=== PATIENT | female | born 1990 | race Caucasian/White ===

== ENCOUNTER → 2020-01-12 10:31 | Outpatient (CLI) | payer OTHER, SELFPAY ==
[2020-01-12 10:34] VITALS: BMI 34.1
[2020-01-12 11:03] LABS: Absolute Lymphocyte Count 2.38 X10^3/uL (0.83-4.51); Absolute Neutrophil Count 5.1 X10^3/uL (2.0-7.7); Basophil# 0.07 X10^3/uL; Basophil% 0.8 % (0-1); Eosinophil# 0.23 X10^3/uL; Eosinophils% 2.8 % (0-5); Hematocrit 38.6 % (37-47); Lymphocyte # 2.38 X10^3/ul (4.0); Lymphocyte % 28.5 % (19-41); Mean Corp Hgb Conc 33.7 g/dL (32-36); Mean Corpuscular Hgb 30.5 pg (27.0-32.0); Mean Corpuscular Volume 90.6 fL (81-99); Mean Platelet Vol. 11.6 fl (6.2-12.0); NRBC Flagged by Analyzer 0 % (0-5); Neutrophil # 5.14 X10^3/uL (2.7-7.7); Neutrophil % 61.7 % (47-70); Platelet Count 255 K/mm3 (150-450); RBC Distribution Width CV 12.8 % (11.6-14.6); RBC Distribution Width SD 41.7 fl (35.1-43.9); Red Blood Count 4.26 M/mm3 (4.2-5.4); White Blood Count 8.3 K/mm3 (4.4-11.0)
[2020-01-12 11:11] LABS: Glucose Challenge Gest 1H 50g 121 mg/dL (70-140)
[2020-01-12 12:02] LABS: HIV - WCH Non-Reactive (Nonreactive); Hepatitis B Surface Antigen Non-Reactive (Nonreactive); Hepatitis C Antibody Non-Reactive (Nonreactive); Rubella IgG 45.8 IU/mL
[2020-01-12 15:37] LABS: Amphetamine Urine VISTA NEGATIVE (<1000 ng/mL); Barbiturate Urine VISTA NEGATIVE (< 200 ng/mL); Benzodiazepine Urine VISTA NEGATIVE (< 200 ng/mL); Cocaine Urine VISTA NEGATIVE (< 300 ng/mL); Ecstacy Urine VISTA NEGATIVE (< 500 ng/mL); Methadone Urine VISTA NEGATIVE (< 300 ng/mL); PCP Urine VISTA NEGATIVE (< 25 ng/mL); THC Urine VISTA NEGATIVE (< 50 ng/mL); Vista UDS pH Range 6
[2020-01-12 19:24] LABS: Chlamydia Trachomatis by PCR Negative (Negative); Neisserai gonorrhoeae by PCR Negative (Negative); Probe Check PASS; Sample Adequacy Control PASS; Specimen Processing Control PASS
[2020-01-13 01:57] LABS: Rapid Plasmin Reagin (RPR) NONREACTIVE (NONREACTIVE)
== END ==
PROVIDERS: PCP Family Medicine; Referring Provider Obstetrics & Gynecology; Visit Provider Obstetrics & Gynecology
DX: Z34.90 Encounter for supervision of normal pregnancy, unspecified, unspecified trimester (principal)
CPT/HCPCS: 36415; 80307; 82950; 85025; 86592; 86703; 86762; 86803; 86850; 86900; 86901; 87077; 87086; 87088; 87340; 87491; 87591

== ENCOUNTER → 2020-02-08 15:58 | Outpatient (CLI) | payer OTHER, SELFPAY ==
[2020-02-08 08:32] VITALS: BMI 34.1
== END ==
PROVIDERS: PCP Family Medicine; Referring Provider Nurse Practitioner Women's Health; Visit Provider Nurse Practitioner Women's Health
DX: O23.41 Unspecified infection of urinary tract in pregnancy, first trimester (principal); Z3A.00 Weeks of gestation of pregnancy not specified
CPT/HCPCS: 87086; 87088

== ENCOUNTER → 2020-05-05 08:20 | Outpatient (CLI) | payer OTHER, SELFPAY ==
[2020-04-07 08:51] VITALS: BMI 34.1
[2020-05-05 08:46] LABS: Absolute Lymphocyte Count 2.35 X10^3/uL (0.83-4.51); Absolute Neutrophil Count 8.5 X10^3/uL (2.0-7.7); Basophil# 0.07 X10^3/uL; Basophil% 0.6 % (0-1); Eosinophil# 0.48 X10^3/uL; Eosinophils% 3.9 % (0-5); Hematocrit 34.6 % (37-47); Hemoglobin 11.7 g/dL (12.0-15.0); Lymphocyte # 2.35 X10^3/ul (4.0); Lymphocyte % 19.3 % (19-41); Mean Corp Hgb Conc 33.8 g/dL (32-36); Mean Corpuscular Volume 94.5 fL (81-99); Mean Platelet Vol. 11.1 fl (6.2-12.0); Monocyte# 0.69 X10^3/uL; Monocyte% 5.7 % (0-10); NRBC Flagged by Analyzer 0 % (0-5); Neutrophil # 8.53 X10^3/uL (2.7-7.7); Neutrophil % 69.9 % (47-70); Platelet Count 245 K/mm3 (150-450); RBC Distribution Width CV 13.1 % (11.6-14.6); RBC Distribution Width SD 44.8 fl (35.1-43.9); Red Blood Count 3.66 M/mm3 (4.2-5.4); White Blood Count 12.2 K/mm3 (4.4-11.0)
[2020-05-05 08:56] LABS: Glucose Challenge Gest 1H 50g 130 mg/dL (70-140)
== END ==
PROVIDERS: PCP Family Medicine; Referring Provider Obstetrics & Gynecology; Visit Provider Obstetrics & Gynecology
DX: Z34.90 Encounter for supervision of normal pregnancy, unspecified, unspecified trimester (principal)
CPT/HCPCS: 36415; 82950; 85025

== ENCOUNTER → 2020-07-14 10:56 | Outpatient (CLI) | payer OTHER, SELFPAY ==
[2020-07-13 08:20] VITALS: BMI 37.8
== END ==
PROVIDERS: PCP Family Medicine; Referring Provider Obstetrics & Gynecology; Visit Provider Obstetrics & Gynecology
DX: Z34.90 Encounter for supervision of normal pregnancy, unspecified, unspecified trimester (principal)
CPT/HCPCS: 87081

== ENCOUNTER → 2020-07-27 12:21 | Outpatient (CLI) | payer OTHER, SELFPAY ==
[2020-07-27 08:43] VITALS: BMI 37.8
== END ==
PROVIDERS: PCP Family Medicine; Referring Provider Obstetrics & Gynecology; Visit Provider Obstetrics & Gynecology
DX: R30.0 Dysuria (principal)
CPT/HCPCS: 87086; 87088

== ENCOUNTER 2020-08-02 09:40 | Outpatient (CLI) | payer OTHER, SELFPAY ==
[2020-08-02 08:47] VITALS: BMI 38.5
[2020-08-02 09:57] VITALS: BMI 38.5
[2020-08-02 10:01] VITALS: BP 129/77; PULSE 73
[2020-08-02] MEDS: 0.9% Saline Lock 10 ML Syringe IV (10:07)
[2020-08-02 10:12] VITALS: TEMP 36.6
[2020-08-02 10:17] VITALS: BP 130/83; PULSE 71
[2020-08-02 10:32] VITALS: BP 121/82; PULSE 73
[2020-08-02 10:50] LABS: AST(SGOT) 12 U/L (15-37); Alanine Aminotransfer ALT/SGPT 16 U/L (13-56); Creatinine, Serum 0.59 mg/dL (0.55-1.02); EST Glomerular Filtration Rate 129 mL/min (>60); Est Glom Filt Rate - Afr Amer 156 mL/min (>60); Estimated Creatinine Clearance 123.68 ml/min; Uric Acid 5.8 mg/dL (2.6-6.0)
[2020-08-02 11:00] VITALS: BP 125/75; PULSE 68
[2020-08-02 11:01] LABS: Hematocrit 35.9 % (37-47); Hemoglobin 12.2 g/dL (12.0-15.0); Mean Corpuscular Hgb 32.1 pg (27.0-32.0); Mean Corpuscular Volume 94.5 fL (81-99); Mean Platelet Vol. 13.5 fl (6.2-12.0); Platelet Count 168 K/mm3 (150-450); RBC Distribution Width CV 12.6 % (11.6-14.6); RBC Distribution Width SD 43.4 fl (35.1-43.9); White Blood Count 12.4 K/mm3 (4.4-11.0)
[2020-08-02 11:06] LABS: Protein, Urine (Random) 14.1 mg/dL (<11.9); Protein:Creat Ratio 412 mg/g CRE (0-200)
[2020-08-02 11:14] VITALS: BP 131/78; PULSE 73
--- NOTE | 2020-08-02 17:26 | OB.TRI.PN ---
Progress Notes Date of Service: 08/02/20 Progress Note: Patient presents for triage evaluation secondary to elevated blood pressures in the office. Patient asymptomatic. Blood pressure is normal range in triage. Previous labs negative aside from slightly elevated protein to creatinine ratio. FHT: Moderate variability reactive no decelerations category I tracing [place]: No contractions Assessment and plan: Reactive NST, reassuring maternal and status patient discharged to home to follow-up next week. See problem list details for additional plan information. Laboratory Studies: Laboratory Tests 08/02/20 08/02/20 08/02/20 Range/Units 10:45 10:07 10:07 WBC 12.4 H (4.4-11.0) K/mm3 RBC 3.80 L (4.2-5.4) M/mm3 Hgb 12.2 (12.0-15.0) g/dL Hct 35.9 L (37-47) % MCV 94.5 (81-99) fL MCH 32.1 H (27.0-32.0) pg MCHC 34.0 (32-36) g/dL RDW Std Deviation 43.4 (35.1-43.9) fl RDW Coeff of Eveline 12.6 (11.6-14.6) % Plt Count 168 (150-450) K/mm3 MPV 13.5 H (6.2-12.0) fl Creatinine 0.59 (0.55-1.02) mg/dL Estim Creat Clear Calc 123.68 ml/min Est GFR (MDRD) Af Amer 156 (>60) mL/min Est GFR (MDRD) Non-Af 129 (>60) mL/min Uric Acid 5.8 (2.6-6.0) mg/dL AST 12 L (15-37) U/L ALT 16 (13-56) U/L U Random Total Protein 14.1 H (<11.9) mg/dL Urine Creatinine 34.20 (NO RANGE EST.) mg/dL Protein/Creatinin Ratio 412 H (0-200) mg/g CRE Multi Select Codes - Urinary/Genital Urinary/Genital CPT Codes: 45997-96 non-stress test Interp
== END 2020-08-02 11:35 | disposition home or self-care (01) ==
LOC: WPOUT 09:51 → WP 09:51
PROVIDERS: PCP Family Medicine; Referring Provider Obstetrics & Gynecology; Visit Provider Obstetrics & Gynecology
DX: O26.899 Other specified pregnancy related conditions, unspecified trimester (principal); Z3A.00 Weeks of gestation of pregnancy not specified
CPT/HCPCS: 36415; 59025; 59050; 82565; 82570; 84156; 84450; 84460; 84550; 85027; 99218; A4216; G0378

== ENCOUNTER → 2020-08-08 10:29 | Outpatient (CLI) | payer OTHER, SELFPAY ==
[2020-08-02 08:47] VITALS: BMI 38.5
[2020-08-02 09:57] VITALS: BMI 38.5
== END ==
PROVIDERS: PCP Family Medicine; Referring Provider Obstetrics & Gynecology; Visit Provider Obstetrics & Gynecology
DX: Z11.59 Encounter for screening for other viral diseases (principal)
CPT/HCPCS: 87635; C9803; U0005; U0003

== ENCOUNTER → 2020-08-10 10:54 | Outpatient (CLI) | payer OTHER, SELFPAY ==
[2020-08-10 10:36] VITALS: BMI 36.6
[2020-08-10 11:13] LABS: Protein, Urine (Random) 148.2 mg/dL (<11.9); Protein:Creat Ratio 805 mg/g CRE (0-200)
== END ==
PROVIDERS: PCP Family Medicine; Visit Provider Obstetrics & Gynecology
DX: O12.10 Gestational proteinuria, unspecified trimester (principal); Z3A.00 Weeks of gestation of pregnancy not specified
CPT/HCPCS: 82570; 84156

== ENCOUNTER 2020-08-10 14:00 | Outpatient (CLI) | payer OTHER, SELFPAY ==
[2020-08-10] VITALS (9 sets, daily range): BP systolic 130–149; BP diastolic 70–93; PULSE 65–82; TEMP 37; BMI 36.6; BMI 38.1
--- NOTE | 2020-08-10 14:16 | US_ITS ---
STUDY: SECOND AND THIRD TRIMESTER OBSTETRICAL ULTRASOUND - LIMITED REASON FOR EXAM: Female, 29 years old 40 WEEK GROWTH LMP: 11/04/2019. PRIOR ULTRASOUND: None. TECHNIQUE: Transabdominal TECHNICAL QUALITY: Adequate. FINDINGS: There is a single intrauterine fetus. The fetus is in a breech presentation. There is demonstrated cardiac activity with a heart rate of 152 bpm. There is a normal amniotic fluid volume. The largest amniotic fluid pocket measures 4 cm. The amniotic fluid index (MARAIMA) is 9.6 cm. The placenta is posterior in location and is not low lying. There are Grade 3 placental changes. The cervix is not well visualized. BIOMETRY: BPD: 9.22 cm: 37 weeks, 3 days AC: 32.6 cm: 36 weeks, 3 days FL: 7.4 cm: 36 weeks, 6 days Age by LMP: 40 weeks, 8 days. BANG by LMP: 08/10/2020. age by current US: 37 weeks, 1 days. BANG by current US: 08/30/2020. Estimated weight: 3142 grams, +/- 471 grams, 16 percentile. US/OB Limited With Biometrics IMPRESSION: Single live intrauterine gestation with mean gestational age of 37 weeks and 1 day. Electronically Signed: Parveen Rey, at 15:38 EST , Service support ,
[2020-08-10 14:45] LABS: Hematocrit 36.3 % (37-47); Hemoglobin 12.3 g/dL (12.0-15.0); Mean Corp Hgb Conc 33.9 g/dL (32-36); Mean Corpuscular Hgb 32.3 pg (27.0-32.0); Mean Corpuscular Volume 95.3 fL (81-99); Mean Platelet Vol. 12.6 fl (6.2-12.0); Platelet Count 169 K/mm3 (150-450); RBC Distribution Width CV 12.9 % (11.6-14.6); RBC Distribution Width SD 44.4 fl (35.1-43.9); Red Blood Count 3.81 M/mm3 (4.2-5.4)
[2020-08-10 14:55] LABS: International Normalized Ratio 0.9; Partial Thromboplast Time 24.9 Seconds (24.1-36.2); Prothrombin Time (Protime)PT. 11.9 SECONDS (11.7-14.9)
[2020-08-10 15:14] LABS: AST(SGOT) 13 U/L (15-37); Alanine Aminotransfer ALT/SGPT 14 U/L (13-56); Creatinine, Serum 0.79 mg/dL (0.55-1.02); EST Glomerular Filtration Rate 93 mL/min (>60); Est Glom Filt Rate - Afr Amer 112 mL/min (>60); Estimated Creatinine Clearance 92.37 ml/min; Uric Acid 6.5 mg/dL (2.6-6.0)
[2020-08-11 00:07] VITALS: PULSE 54; O2SAT 82
[2020-08-11 00:12] VITALS: BP 142/92; PULSE 63; TEMP 36.4; O2SAT 98
--- NOTE | 2020-08-11 01:07 | OB.TRI.PN_ITS ---
Progress Notes Date of Service: 08/10/20 Progress Note: Patient presents for triage evaluation secondary to proteinuria FHT: 140 Moderate variability reactive no decelerations category I tracing [place]: irregular Contractions Assessment and plan: proeinuria breech Reactive NST, reassuring maternal and status patient discharged to home to follow-up for cs tomorrow, labs WNL. See problem list details for additional plan information. Laboratory Studies: Laboratory Tests 08/10/20 08/10/20 08/10/20 Range/Units 14:35 14:35 14:35 WBC 14.0 H (4.4-11.0) K/mm3 RBC 3.81 L (4.2-5.4) M/mm3 Hgb 12.3 (12.0-15.0) g/dL Hct 36.3 L (37-47) % MCV 95.3 (81-99) fL MCH 32.3 H (27.0-32.0) pg MCHC 33.9 (32-36) g/dL RDW Std Deviation 44.4 H (35.1-43.9) fl RDW Coeff of Eveline 12.9 (11.6-14.6) % Plt Count 169 (150-450) K/mm3 MPV 12.6 H (6.2-12.0) fl PT 11.9 (11.7-14.9) SECONDS INR 0.9 APTT 24.9 (24.1-36.2) Seconds Creatinine 0.79 (0.55-1.02) mg/dL Estim Creat Clear Calc 92.37 ml/min Est GFR (MDRD) Af Amer 112 (>60) mL/min Est GFR (MDRD) Non-Af 93 (>60) mL/min Uric Acid 6.5 H (2.6-6.0) mg/dL AST 13 L (15-37) U/L ALT 14 (13-56) U/L Multi Select Codes - Urinary/Genital Urinary/Genital CPT Codes: 67839-87 non-stress test Interp
== END 2020-08-10 17:15 | disposition home or self-care (01) ==
LOC: WPOUT 14:09 → WP 14:10
PROVIDERS: PCP Family Medicine; Referring Provider Obstetrics & Gynecology; Visit Provider Obstetrics & Gynecology
DX: O12.13 Gestational proteinuria, third trimester (principal); Z3A.37 37 weeks gestation of pregnancy
CPT/HCPCS: 36415; 59025; 59050; 76816; 82565; 84450; 84460; 84550; 85027; 85610; 85730; 99218; G0378

== ENCOUNTER 2020-08-11 | Inpatient (IN) | payer OTHER, SELFPAY ==
[2020-08-10 14:11] VITALS: BMI 38.1
[2020-08-11] VITALS (17 sets, daily range): BP systolic 110–142; BP diastolic 60–92; PULSE 60–90; RESP 12–21; TEMP 36.1–36.8; O2SAT 95–99; BMI 37.8
[2020-08-11] MEDS: Lactated Ringers 1,000 ML 999 ML IV (00:30)
[2020-08-11 00:51] LABS: Absolute Lymphocyte Count 2.61 X10^3/uL (0.83-4.51); Absolute Neutrophil Count 12.4 X10^3/uL (2.0-7.7); Basophil# 0.08 X10^3/uL; Basophil% 0.5 % (0-1); Eosinophil# 0.16 X10^3/uL; Hematocrit 36.9 % (37-47); Hemoglobin 12.3 g/dL (12.0-15.0); Lymphocyte # 2.61 X10^3/ul (4.0); Mean Corp Hgb Conc 33.3 g/dL (32-36); Mean Corpuscular Hgb 31.2 pg (27.0-32.0); Mean Corpuscular Volume 93.7 fL (81-99); Mean Platelet Vol. 12.8 fl (6.2-12.0); Monocyte# 0.93 X10^3/uL; Monocyte% 5.7 % (0-10); NRBC Flagged by Analyzer 0 % (0-5); Neutrophil # 12.38 X10^3/uL (2.7-7.7); Neutrophil % 75.9 % (47-70); Platelet Count 181 K/mm3 (150-450); RBC Distribution Width CV 12.8 % (11.6-14.6); RBC Distribution Width SD 43.7 fl (35.1-43.9); Red Blood Count 3.94 M/mm3 (4.2-5.4); White Blood Count 16.3 K/mm3 (4.4-11.0)
[2020-08-11] MEDS: Acetaminophen 500 MG Tablet 1000 MG PO ×4 (01:00→18:52)
[2020-08-11] MEDS: Sodium Citrate/Citric Acid 30 ML UDC PO (01:02)
--- NOTE | 2020-08-11 01:09 | PCM.HPOB.BLA ---
- Problem List (1) Active labor at term Status: Acute (2) 39 weeks gestation of Status: Acute Comment: covid test ordered 08/08/2020 negative (3) Asthma affecting , antepartum Status: Acute Comment: Ken Moran Zyrtec (4) Influenza vaccine administered Status: Acute Comment: 04/07/2020 SC (5) Obesity affecting Status: Acute Comment: BMI 34- nl gct at [facility], encouraged healthy weight gain (6) Status: Acute Qualifiers: Comment: declines genetic, carrier and NTD. Anatomy normal (7) Supervision of high risk , antepartum Status: Acute Comment: PRR BANG 08/10/2020 boy:Onur Spouse: Anthony (8) Transient hypertension of in third trimester Status: Acute Comment: Multiple BPs with diastolics in 90s 08/02. Asymptomatic. Sent to triage for labs and BP monitoring. (9) UTI (urinary tract infection) in in first trimester Status: Acute Comment: 01/16:macrobid. Repeat culture neg (10) Breech presentation Status: Acute History and Physical Date of Admission: 08/11/20 Intake Vital Signs 08/10/20 Height 5 ft 5 in 08/10/20 Weight: 220 lb 08/10/20 BMI 36.6 08/10/20 BP 122/88 H Intake Visit Reasons: 40 WK OB /HAPPY DUE DATE! 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 Is patient in pain?: No Allergies cat dander Allergy (Intermediate, Verified 08/10/20 10:36) Hives cigarette smoke Allergy (Intermediate, Verified 08/10/20 10:36) Other dog dander Allergy (Intermediate, Verified 08/10/20 10:36) Hives perfume Allergy (Intermediate, Verified 08/10/20 10:36) Other aspirin [From [employer]] Allergy (Verified 08/10/20 10:36) Other caffeine [From [employer]] Allergy (Verified 08/10/20 10:36) Other seasonal Allergy (Intermediate, Uncoded 08/10/20 10:36) hives cold Adverse Reaction (Intermediate, Uncoded 08/10/20 10:36) Hives Medications albuterol sulfate 90 mcg/actuation aerosol inhaler 2 puff INHALATION Q6H PRN 01/12/20 [History Confirmed 08/10/20] fluticasone 500 mcg-salmeterol 50 mcg/dose blistr powdr for inhalation 1 inh INHALATION BID 01/12/20 [History Confirmed 08/10/20] multivitamin no.47-iron fum 27 mg-folate no.1 1 mg-dha 300 mg capsule 1 cap PO 01/12/20 [History Confirmed 08/10/20] cyclobenzaprine 10 mg tablet 10 mg PO TID PRN #30 tab 07/27/20 [Rx Confirmed 08/10/20] promethazine 12.5 mg tablet 12.5 mg PO Q6H PRN #120 tab 07/27/20 [Rx Confirmed 08/10/20] Last Menstral Period: 11/04/19 Zika: Zika virus screening: Negative : No PFSH PFSH Medical History Obesity affecting (Acute) Asthma affecting , antepartum (Acute) Surgical History No significant past surgical history (Acute) Family History Grandmother Breast cancer Grandfather Cancer Mother Diabetes Father Diabetes Social History (Updated 08/10/20 @ 11:[address] Faina Guzman MD) adopted: No household members: spouse housing: house current occupational status: employed current occupation: [employer] pets and animals: Yes history of recent travel: No sexually active: Yes Smoking Status: Never smoker second hand exposure: No alcohol intake: current alcohol intake frequency: holidays/special occasions only substance use type: does not use seatbelt use: always do you feel safe at home: Yes additional social history: Anthony blankenship Pregancy History 1 Elective abortions Hx Para Spontaneous abortions Hx # Term Pregnancies Ectopic pregnancies Hx # Pregnancies Multiple births # of living children HPI 40 WK OB /HAPPY DUE DATE!: Details: SUE HEAD is a 29 year old @ 40w1d presents IAL breech. OB Visit BANG Calculator Estimated Delivery Date Method Current WG Current Estimate 08/10/20 LMP (Certain) 40w 0d Other Estimates 08/11/20 Ultrasound #1 39w 6d Expected Delivery Route/Plan Labor Preferences- CB/BF classes: done labor support person: anthnoy labor intervention preferences: nonspecific pain management options preferred: epidural cut cord/dad catch: possible : yes PP control planned: discussed possible routes of delivery and associated risks: discussed possible delivery modalities and possible indications for each including R/B/A of , VAVD, FAVD, and CS. questions answered. special requests: none Specific Issue/Plans flu vaccine: given 04/07 tdap vaccine: given 05/05 rhogam: NA LARC form signed:declined movement and labor precautions reviewed. Problem list reviewed and updated with the most current plan of care details and appropriate orders placed. Relevant counseling for the gestational age provided. Continue routine care and follow up unless otherwise noted in visit notes/problem list details Initial Weight: 199 lb Date EGA Weight BP Urine Prot Glucose FHR FuHt Pres Dilation Effaced St Visit Note 02/08/20 13w 5d 198 lb (-16 oz) 114/80 Negative Negative 158 MH-NO VB, LOF. Nausea minimal. MFM US ordered. 03/10/20 18w 1d 197 lb (-2 lb) 130/80 Negative Negative 155 SM- no vb lof good fm no regular ctx 04/07/20 22w 1d 201 lb (+2 lb) 122/88 Negative Negative 150 SM- no vb lof good fm no regular ctx. 05/05/20 26w 1d 205 lb (+6 lb) 110/80 150 Sm- no vb lof good fm no regular ctx cbc WNL and no diabetes 06/01/20 30w 0d 210 lb (+11 lb) 128/82 Negative Negative 140 30 SM- no vb lof good fm no regular ctx discussed labor preferences. 06/15/20 32w 0d 214 lb (+15 lb) 118/88 Negative Negative 150 32 GP - no LOF, VB, DFM, ctx. Denies complaints. 06/26/20 33w 4d 216 lb (+17 lb) 112/88 Negative Negative 150 34 SM- no vb lof good fm no egular ctx 07/13/20 36w 0d 220 lb (+21 lb) 122/82 Negative Negative 150 36 SM- gbs done no vb lof good fm no regular ctx 07/21/20 37w 1d 223 lb (+24 lb) 122/88 Negative Negative 150 37 Cephalic 0 40 -2 GP - no LOF, VB, DFM, reg ctx. Discussed COVID testing and COVID precautions. Would like to work as long as possible. 07/27/20 38w 0d 220 lb (+21 lb) 119/86 Negative 155 38 Cephalic 0 Sm- no vb lof good fm irregular ctx. low back pain, vomiting, no cough or fever. Sm- no vb lof good fm irregular ctx. low back pain, vomiting, no cough or fever. ua and culture done, ordered keflex phenergan and flexeril 08/02/20 38w 6d 224 lb 4 oz (+25 lb 4 oz) 122/94 Negative Negative 150 39 Cephalic 0 40 -2 GP - no LOF, VB, DFM, ctx. COVID testing scheduled. BPs mild range - sent to triage for eval. Discussed routes of delivery. 08/10/20 40w 0d 220 lb (+21 lb) 122/88 3+ Negative 160 40 breech on US 1 70 -2 SM- no vb lof good fm no reular ctx. discussed IOL 41 weeks, check ur protein/cr ratio, reviewed preeclampsia precautions ACOG First Trimester First Trimester: Desire for , Alcohol, Tobacco Cessation, Illicit/Recreational Drug/Substance Use, Intimate Partner Violence, Barriers to care, Unstable Housing, Communication Barriers, Environmental/Work Hazards, Anticipated Course of Care, Toxoplasmosis Precations, Use of Any medications, Sexual activity, Exercise, Dental Care, Sauna/Hot tub use, Seat Belt use, Childbirth classes/Hospital facilities, , Travel, Indications for US and Screening for Aneuploidy Diagnostics Diagnostics Diagnostics Glucose 1 Hr 50 gm 130 mg/dL (70-140) 05/05/20 Hgb 12.2 g/dL (12.0-15.0) 08/02/20 Hct 35.9 % (37-47) L 08/02/20 Details: HIV: Urine Culture: Sequential Screen: NIPT Screen: ROS Const Reports system reviewed and no additional complaints, except as docu Card Reports system reviewed and no additional complaints, except as docu Resp Reports system reviewed and no additional complaints, except as docu GI Reports system reviewed and no additional complaints, except as docu, Reports nausea Reports system reviewed and no additional complaints, except as docu Musc Reports system reviewed and no additional complaints, except as docu Exam Const General: cooperative, healthy appearing, comfortable, anxious [facility] Head: normal to inspection Nose: external nose normal Face and sinus: normal facial exam Neck Neck: normal visual inspection, full ROM, no lymphadenopathy Thyroid: thyroid normal Chest Chest palpation & inspection: normal inspection of the chest Resp Effort & Inspection: normal respiratory effort GI Inspection: normal to inspection Palpation: soft, other (gravid uterus) Other: breech on US and appropriate size for gestational age Other: Cervical Exam: Extrem General: pedal edema Results POC Urinalysis 2 Dip (Clinic) Office Urine Glucose Negative Last Edit by Sheri Bourne on 08/10/20 10:42 Office Urine Protein 3+ Last Edit by Sheri Bourne on 08/10/20 10:42 Assessment & Plan Problems 1. Asthma affecting , antepartum O99.519; J45.909 Advair, ProAir, Zyrtec 2. Obesity affecting O99.210 BMI 34- nl gct at [facility], encouraged healthy weight gain 3. Supervision of high risk , antepartum O09.90 PRR BANG 08/10/2020 boy:Onur Spouse: Anthony 4. Z34.90 declines genetic, carrier and NTD. Anatomy normal 5. UTI (urinary tract infection) in in first trimester O23.41 615:macrobid. Repeat culture neg 6. Influenza vaccine administered Z23 04/07/2020 SC 7. Transient hypertension of in third trimester O13.3 Multiple BPs with diastolics in 90s 30. Asymptomatic. Sent to triage for labs and BP monitoring. 8. 39 weeks gestation of Z3A.39 covid test ordered 08/08/2020 negative plan LTCS for breech presentation IAL After discussing the patient's diagnosis and treatment plan options, patient wishes to proceed with surgical management. I have discussed with the patient the risks, benefits, and alternatives of the procedure which include but are not limited to risks of anesthesia, bleeding, infection, possible damage to bowel, bladder, or surrounding vasculature which could lead to additional surgery to evaluate any complications. Patient agrees to procedure and wishes to proceed. ACOG/uptodate references given for additional information regarding procedure. Orders Orders: POC Urinalysis 2 Dip (Clinic) Today Protein+Creatinine Ratio,Urine Today O12.10 Coding Level of Care Code OB Routine Diagnoses Asthma affecting , antepartum O99.519; J45.909 Obesity affecting O99.210 Supervision of high risk , antepartum O09.90 Z34.90 UTI (urinary tract infection) in in first trimester O23.41 Influenza vaccine administered Z23 Transient hypertension of in third trimester O13.3 39 weeks gestation of Z3A.39
[2020-08-11] MEDS: Cefazolin 2 GM in 0.9% Normal Saline 100 ML IV (01:13)
--- NOTE | 2020-08-11 01:14 | OP.PCM_ITS ---
Problem List (1) Active labor at term Status: Acute (2) 39 weeks gestation of Status: Acute Comment: covid test ordered 08/08/2020 negative (3) Asthma affecting , antepartum Status: Acute Comment: Advair, ProAir, Beccayrtec (4) Influenza vaccine administered Status: Acute Comment: 04/07/2020 SC (5) Obesity affecting Status: Acute Comment: BMI 34- nl gct at [facility], encouraged healthy weight gain (6) Status: Acute Qualifiers: Comment: declines genetic, carrier and NTD. Anatomy normal (7) Supervision of high risk , antepartum Status: Acute Comment: PRR BANG 08/10/2020 boy:Onur Spouse: Anthony (8) Transient hypertension of in third trimester Status: Acute Comment: Multiple BPs with diastolics in 90s 08/02. Asymptomatic. Sent to triage for labs and BP monitoring. (9) UTI (urinary tract infection) in in first trimester Status: Acute Comment: 01/16:macrobid. 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 Cheung catheter was placed. The patient was placed in the dorsal supine position with leftward tilt. Patient was prepped and draped in the normal sterile fashion. Pfannenstiel skin incision was made with the scalpel and carried through to the underlying layer of fascia with the scalpel. Fascia was nicked in the midline and the incision extended laterally. The rectus bellies were dissected off superiorly and i nferiorly with out complication both sharply and bluntly. The peritoneum was entered digitally. The incision was stretched and a low transverse uterine incision was made with the scalpel. The 's buttox was delivered atraumatically followed by the body and the anterior and posterior shoulders without complication the rest of the infant delivered. The cord was clamped and cut and the infant was handed off to awaiting nurse. The placenta was delivered spontaneously immediately following and was noted to be intact and have a three- vessel cord. The uterus was exteriorized cleared of all clots and debris, and the incision was closed in a double layer closure using #1 Monocryl. The ovaries and fallopian tubes were noted to be within normal limits. The uterus was returned to the maternal abdomen and gutters were cleared of all clots and debris. The peritoneum was closed with 3-0 Monocryl in a running fashion. Gloves were changed prior to fascial closure. Fascia was closed with 0 PDS in a running fashion. Subcutaneous tissue was copiously irrigated and the skin was closed with 3-0 Monocryl in a subcuticular fashion. Mepilex dressing was applied without complication. Patient was taken to recovery in stable condition. It was discussed with the patient that based on the clinical information obtained during this encounter, combined with her history, at this time I would recommend vaginal or cesareans for future deliveries if further pregnancies are desired. Amniotic Membrane Rupture Type: Artificial Amniotic Fluid Description: Clear Placenta Disposition: [facility] Drain: Cheung to straight drain Esitmated Blood Loss (ml): 400 Gender: Male Delayed cord clamping: Yes Antibiotic Given: Ancef 2 grams IV x1 Pt instructed on risks of surgery: Bleeding, Anesthesia Risks, Infection, Injury to surrounding structure(s) including bowel and bladder Complications: None - Admit VTE Documentation VTE Present on Admission: No VTE Mechan Device Prophylaxis: SCD's Multi Select Codes - Urinary/Genital Urinary/Genital CPT Codes: 54849 Delivery [facility]
--- NOTE | 2020-08-11 01:17 | DCINST_ITS ---
Discharge Diet: No Restrictions Discharge Activity: May Not Drive - for 2 weeks, May not drive while taking narcotic pain medications., May Shower, May Take a Tub Bath - in 7 days May resume sexual activity in: 4-6 weeks Lifting Restrictions: 20 pounds Additional Activity Instructions:: Nothing in the vagina for 4-6 weeks. You may return to work/school in 6 weeks. Call your doctor if your incision/area has: Continuous Slow Oozing, Sudden Increased Bleeding, Increased Pain/ Swelling, Increased Redness, Foul Smelling Discharge Call your doctor if you observe: Fever of 101 or Higher, Using more than one pad per hour - for 2 hours Suture Line Care: Avoid Pulling/Pushing, Avoid Pinching/Bending Cleanse incision/area with: Keep Dressing Clean & Dry Additional Instructions: If you experience any of the following, contact your healthcare provider. * Bleeding that soaks a pad every hour for 2 hours * Fever 100.4 or higher * Unrelieved incision or abdominal pain * Swelling, redness, discharge or bleeding from your incision or episiotomy site * Your incision begins to separate * Problems urinating (including inability to urinate or burning while urinating). * Visual changes * Severe headache * Flu-like symptoms * Pain or redness in one of both of your breasts * Pain, warmth, tenderness or swelling in your legs, especially the calf area * Frequent nausea and vomiting * Symptoms of depression or anxiety If you experience any of the following, call 911 or go to the nearest Emergency Room. * Chest pain * Problems breathing * Seizure activity * Partial or complete paralysis of a body part, slurred speech, weakness or drooping of the face, or a sudden inability to walk or hold your balance Allergies/Adverse Reactions: Allergies cat dander Allergy (Intermediate, Verified 08/10/20 10:36) Hives cigarette smoke Allergy (Intermediate, Verified 08/10/20 10:36) Other SOB dog dander Allergy (Intermediate, Verified 08/10/20 10:36) Hives perfume Allergy (Intermediate, Verified 08/10/20 10:36) Other SOB aspirin [From [employer]] Allergy (Verified 08/10/20 10:36) Other SOB, swelling, hives caffeine [From [employer]] Allergy (Verified 08/10/20 10:36) Other SOB, swelling, hives seasonal Allergy (Intermediate, Uncoded 08/10/20 10:36) hives cold Adverse Reaction (Intermediate, Uncoded 08/10/20 10:36) Hives cold induced urticaria Medications to take at Discharge albuterol sulfate 90 mcg/actuation aerosol inhaler 2 puff INHALATION Q6H PRN 01/12/20 multivitamin no.47-iron fum 27 mg-folate no.1 1 mg-dha 300 mg capsule 1 cap PO DAILY 01/12/20 cyclobenzaprine 10 mg tablet 10 mg PO TID PRN #30 tab 07/27/20 promethazine 12.5 mg tablet 12.5 mg PO Q6H PRN #120 tab 07/27/20 Blood Pressure Test Kit [Blood Pressure Monitor Manual] See Rx Instructions .ROUTE .MEDSUPPLY 08/11/20 Oxycodone HCl/Acetaminophen [Percocet 5-325] 1 - 2 tablet PO Q6H PRN PRN 7 Days #15 tablet 08/11/20 The following prescriptions were given: Oxycodone HCl/Acetaminophen [Percocet 5-325] 1 - 2 tablet PO Q6H PRN PRN 7 Days #15 tablet PRN Reason: Pain Transmission Status: Sent to [facility] Follow-Up: Call to make an appointment with your doctor for an incision check in 1-2 weeks. You will also need a 6 week post- follow up appointment. Test results from this visit will be discussed in further detail at your follow- up appointment, if applicable. Please Follow Up With: Faina Guzman MD - Call to make an appointment for an incision check in 1-2 [phone] When: You will need a post- check in 6 weeks. Primary Care Physician: Dave Bellamy MD [Primary Care Provider] -
[2020-08-11] MEDS: Oxytocin 30 units/NS 500 ml 30 UNITS/500 ML IV.SOLN 167 UNITS IV (02:20)
[2020-08-11] MEDS: Lactated Ringers 1,000 ML 100 ML IV (05:15)
[2020-08-11] MEDS: Senna/Docusate Sodium 1 Tablet PO (10:36)
[2020-08-11] MEDS: Enoxaparin 40 MG/0.4 ML Syringe SC (10:37)
[2020-08-11] MEDS: 0.9% Saline Lock 10 ML Syringe IV ×3 (13:03→21:51)
[2020-08-11] MEDS: Ketorolac 30 MG/ML Syringe IV ×2 (15:41→21:51)
[2020-08-12] MEDS: Acetaminophen 500 MG Tablet 1000 MG PO ×4 (01:45→20:03)
[2020-08-12 01:46] VITALS: BP 130/89; PULSE 94; RESP 16; TEMP 36.4
[2020-08-12] MEDS: Naproxen 250 MG Tablet PO ×3 (04:17→20:03)
[2020-08-12 04:18] VITALS: BP 111/60; PULSE 82; RESP 16; TEMP 36.3
[2020-08-12 04:34] LABS: Hematocrit 33.1 % (37-47); Hemoglobin 11.3 g/dL (12.0-15.0); Mean Corp Hgb Conc 34.1 g/dL (32-36); Mean Corpuscular Hgb 32.6 pg (27.0-32.0); Mean Corpuscular Volume 95.4 fL (81-99); Mean Platelet Vol. 12.1 fl (6.2-12.0); Platelet Count 169 K/mm3 (150-450); RBC Distribution Width CV 13.2 % (11.6-14.6); RBC Distribution Width SD 45.5 fl (35.1-43.9); Red Blood Count 3.47 M/mm3 (4.2-5.4); White Blood Count 14.2 K/mm3 (4.4-11.0)
[2020-08-12 07:51] VITALS: BP 121/68; PULSE 80; RESP 16; TEMP 36.7; O2SAT 99
[2020-08-12] MEDS: Senna/Docusate Sodium 1 Tablet PO (09:39)
[2020-08-12] MEDS: Enoxaparin 40 MG/0.4 ML Syringe SC (09:39)
--- NOTE | 2020-08-12 12:36 | PN.OBGYN_ITS ---
Patient Problems: Active and Suspected Problems (Last Updated 08/11/20 @ 10:11 by Tenisha Rodriguez) Influenza vaccine administered (Acute) 04/07/2020 [place] Subjective: Patient doing well without complaints. Tolerating PO. Ambulating and voiding without difficulty. feeding well. Denies chest pain, shortness of breath, calf pain/swelling, fevers, chills, lightheadedness. - Physical Exam Vitals/I&O's: Vital Signs Temp Pulse Resp BP Pulse Ox 98.0 F 80 16 121/68 H 99 08/12/20 07:51 08/12/20 07:51 08/12/20 07:51 08/12/20 07:51 08/12/20 07:51 Oxygen Delivery Method Room Air Weight: 220 lb 0.341 oz Body Mass Index (BMI) 37.8 Intake and Output for Last 24 Hours 08/10/20 08/11/20 08/12/20 23:59 23:59 23:59 Intake Total 2337.75 / 2337.75 Output Total 1400 / 1400 Balance 937.75 / 937.75 General: Alert, Oriented x3 Laboratory Results 08/12/20 04:30: WBC 14.2 H, RBC 3.47 L, Hgb 11.3 L, Hct 33.1 L, MCV 95.4, MCH 32.6 H, MCHC 34.1, RDW Std Deviation 45.5 H, RDW Coeff of Eveline 13.2, Plt Count 169, MPV 12.1 H Current Medications Acetaminophen (Acetaminophen 500 Mg Tablet) 1,000 mg PO Q6H [facility] Last Admin: 08/12/20 07:44 Dose: 1,000 mg Documented by: Bisacodyl (Bisacodyl 10 Mg Suppository) 10 mg RECTAL UD PRN PRN Reason: If no BM Enoxaparin Sodium (Enoxaparin 40 Mg/0.4 Ml Syringe) 40 mg SC DAILY [facility] Last Admin: 08/12/20 09:39 Dose: 40 mg Documented by: Hydrocortisone (Hydrocortisone 2.5% Crm) 1 applic TOPICAL TID PRN PRN; Protocol PRN Reason: Discomfort Naloxone HCl (Naloxone 0.4 Mg/Ml Syringe) 0.02 mg IV Q1M PRN PRN Reason: RR <10 and pt unresponsive Naproxen (Naproxen 250 Mg Tablet) 250 - 500 mg PO Q8H [facility] Last Admin: 08/12/20 12:17 Dose: 500 mg Documented by: Ondansetron HCl (Ondansetron 4 Mg/2 Ml Vial) 4 mg IV Q4H PRN PRN PRN Reason: Nausea Oxycodone HCl (Oxycodone 5 Mg Tablet) 5 - 10 mg PO Q4H PRN PRN PRN Reason: Pain Score 4-10 Prochlorperazine Edisylate (Prochlorperazine 10 Mg/2 Ml Vial) 10 mg IV Q6H PRN PRN PRN Reason: NAUSEA Senna/Docusate Sodium (Senna/Docusate Sodium 1 Tablet) 1 - 2 tablet PO DAILY [facility] Last Admin: 08/12/20 09:39 Dose: 2 tablet Documented by: Simethicone (Simethicone 80 Mg Tablet) 80 mg PO PCHS PRN PRN Reason: Indigestion/stomach pain Sodium Chloride (0.9% Saline Lock 10 Ml Syringe) 5 - 15 ml IV UD PRN PRN Reason: SALINE FLUSH Last Admin: 08/11/20 21:51 Dose: 10 ml Documented by: Medical Necessity - Tobacco Use Smoking Status: Never smoker Assessment/Plan All Active Problems (Last Updated 08/11/20 @ 10:11 by Tenisha Rodriguez) Influenza vaccine administered (Acute) 39 weeks gestation of (Resolved) Active labor at term (Resolved) Asthma affecting , antepartum (Resolved) Breech presentation (Resolved) Obesity affecting (Resolved) (Resolved) Supervision of high risk , antepartum (Resolved) Transient hypertension of in third trimester (Resolved) UTI (urinary tract infection) in in first trimester (Resolved) s/p LTCS PPD # 1 1. routine post care 2. breast feeding- support given 3. rh positive 4. rubella immune
[2020-08-12 13:18] VITALS: BP 119/75; PULSE 80; RESP 18; TEMP 36.6
[2020-08-12 19:55] VITALS: BP 123/79; PULSE 89; RESP 18; TEMP 36.5; O2SAT 96
[2020-08-13] MEDS: Acetaminophen 500 MG Tablet 1000 MG PO ×3 (02:10→14:52)
[2020-08-13] MEDS: Naproxen 250 MG Tablet PO ×2 (04:21→11:46)
[2020-08-13 04:24] VITALS: BP 122/68; PULSE 84; RESP 16; TEMP 37.1; O2SAT 94
[2020-08-13 08:59] VITALS: BP 139/87; PULSE 94; RESP 16; TEMP 36.7; O2SAT 99
[2020-08-13] MEDS: Senna/Docusate Sodium 1 Tablet PO (09:05)
[2020-08-13] MEDS: Enoxaparin 40 MG/0.4 ML Syringe SC (09:05)
--- NOTE | 2020-08-13 09:26 | PN.OBGYN_ITS ---
Patient Problems: Active and Suspected Problems (Last Updated 08/11/20 @ 10:11 by Tenisha Rodriguez) Influenza vaccine administered (Acute) 04/07/2020 [place] Subjective: Patient doing well without complaints. Tolerating PO. Ambulating and voiding without difficulty. feeding well. Denies chest pain, shortness of breath, calf pain/swelling, fevers, chills, lightheadedness. - Physical Exam Vitals/I&O's: Vital Signs Temp Pulse Resp BP Pulse Ox 98.1 F 94 16 139/87 H 99 08/13/20 08:59 08/13/20 08:59 08/13/20 08:59 08/13/20 08:59 08/13/20 08:59 Oxygen Delivery Method Room Air Weight: 220 lb 0.341 oz Body Mass Index (BMI) 37.8 Intake and Output for Last 24 Hours 08/11/20 08/12/20 08/13/20 23:59 23:59 23:59 Intake Total 2337.75 / 2337.75 Output Total 1400 / 1400 Balance 937.75 / 937.75 General: Alert, Oriented x3 Current Medications Acetaminophen (Acetaminophen 500 Mg Tablet) 1,000 mg PO Q6H [facility] Last Admin: 08/13/20 09:05 Dose: 1,000 mg Documented by: Bisacodyl (Bisacodyl 10 Mg Suppository) 10 mg RECTAL UD PRN PRN Reason: If no BM Enoxaparin Sodium (Enoxaparin 40 Mg/0.4 Ml Syringe) 40 mg SC DAILY [facility] Last Admin: 08/13/20 09:05 Dose: 40 mg Documented by: Hydrocortisone (Hydrocortisone 2.5% Crm) 1 applic TOPICAL TID PRN PRN; Protocol PRN Reason: Discomfort Naloxone HCl (Naloxone 0.4 Mg/Ml Syringe) 0.02 mg IV Q1M PRN PRN Reason: RR <10 and pt unresponsive Naproxen (Naproxen 250 Mg Tablet) 250 - 500 mg PO Q8H [facility] Last Admin: 08/13/20 04:21 Dose: 500 mg Documented by: Ondansetron HCl (Ondansetron 4 Mg/2 Ml Vial) 4 mg IV Q4H PRN PRN PRN Reason: Nausea Oxycodone HCl (Oxycodone 5 Mg Tablet) 5 - 10 mg PO Q4H PRN PRN PRN Reason: Pain Score 4-10 Prochlorperazine Edisylate (Prochlorperazine 10 Mg/2 Ml Vial) 10 mg IV Q6H PRN PRN PRN Reason: NAUSEA Senna/Docusate Sodium (Senna/Docusate Sodium 1 Tablet) 1 - 2 tablet PO DAILY [facility] Last Admin: 08/13/20 09:05 Dose: 2 tablet Documented by: Simethicone (Simethicone 80 Mg Tablet) 80 mg PO PCHS PRN PRN Reason: Indigestion/stomach pain Sodium Chloride (0.9% Saline Lock 10 Ml Syringe) 5 - 15 ml IV UD PRN PRN Reason: SALINE FLUSH Last Admin: 08/11/20 21:51 Dose: 10 ml Documented by: Medical Necessity - Tobacco Use Smoking Status: Never smoker Assessment/Plan All Active Problems (Last Updated 08/11/20 @ 10:11 by Tenisha Rodriguez) Influenza vaccine administered (Acute) 39 weeks gestation of (Resolved) Active labor at term (Resolved) Asthma affecting , antepartum (Resolved) Breech presentation (Resolved) Obesity affecting (Resolved) (Resolved) Supervision of high risk , antepartum (Resolved) Transient hypertension of in third trimester (Resolved) UTI (urinary tract infection) in in first trimester (Resolved) s/p LTCS PPD # 2 1. routine post care 2. breast feeding- support given 3. rh positive 4. rubella immune
[2020-08-13 15:29] VITALS: BP 143/85; PULSE 90; RESP 16; TEMP 36.9; O2SAT 98
== END 2020-08-13 16:00 | disposition home or self-care (01) | DRG 788 ==
PROVIDERS: Obstetrics & Gynecology; Admitting Provider Obstetrics & Gynecology; PCP Family Medicine; Visit Provider Obstetrics & Gynecology
PROC: 10D00Z1 Extraction of Products of Conception, Low, Open Approach (ICD-10-PCS; CPT 59514; principal; 2020-08-11 07:15)
DX: O32.1XX0 Maternal care for breech presentation, not applicable or unspecified (principal); Z3A.40 40 weeks gestation of pregnancy; Z37.0 Single live birth; O99.214 Obesity complicating childbirth; J45.909 Unspecified asthma, uncomplicated; O99.52 Diseases of the respiratory system complicating childbirth
CPT/HCPCS: 59025; 59050; 76815; 85025; 85027; 86850; 86900; 86901; 99218; 99251; J7120; A4216; G0378; G0463; J2405

== ENCOUNTER → 2020-09-21 17:53 | Outpatient (CLI) | payer OTHER, SELFPAY ==
[2020-09-21 14:14] VITALS: BMI 35.0
[2020-09-25 18:02] LABS: HPV Reflexed? NOT INDICATED
== END ==
PROVIDERS: PCP Family Medicine; Referring Provider Obstetrics & Gynecology; Visit Provider Obstetrics & Gynecology
DX: Z12.4 Encounter for screening for malignant neoplasm of cervix (principal)
CPT/HCPCS: 88175; G0145

== ENCOUNTER → 2020-12-07 11:24 | Outpatient (CLI) | payer OTHER, SELFPAY ==
[2020-09-21 14:14] VITALS: BMI 35.0
[2020-12-07 15:24] LABS: Absolute Lymphocyte Count 1.27 X10^3/uL (0.83-4.51); Absolute Neutrophil Count 4.2 X10^3/uL (2.0-7.7); Basophil# 0.05 X10^3/uL; Basophil% 0.8 % (0-1); Eosinophil# 0.11 X10^3/uL; Eosinophils% 1.8 % (0-5); Hematocrit 39.9 % (37-47); Hemoglobin 12.9 g/dL (12.0-15.0); Lymphocyte # 1.27 X10^3/ul (0.83-4.51); Lymphocyte % 20.7 % (19-41); Mean Corp Hgb Conc 32.3 g/dL (32-36); Mean Corpuscular Hgb 30.1 pg (27.0-32.0); Mean Platelet Vol. 11.9 fl (6.2-12.0); Monocyte# 0.51 X10^3/uL; Monocyte% 8.3 % (0-10); NRBC Flagged by Analyzer 0 % (0-5); Neutrophil % 68.2 % (47-70); Platelet Count 286 K/mm3 (150-450); RBC Distribution Width SD 41.2 fl (35.1-43.9); Red Blood Count 4.29 M/mm3 (4.2-5.4); White Blood Count 6.2 K/mm3 (4.4-11.0)
[2020-12-07 15:36] LABS: ALB/GLOB Ratio 0.9 RATIO (0.9-2.4); AST(SGOT) 740 U/L (15-37); Alanine Aminotransfer ALT/SGPT 674 U/L (13-56); Albumin, Serum 3.7 g/dL (3.2-5.0); Alkaline Phosphatase 143 U/L (45-117); Anion Gap 7 (5-15); BUN 14 mg/dL (7-18); BUN/Creat Ratio 19.6 RATIO (10-20); Calcium,Total 9.1 mg/dL (8.5-10.1); Chloride 107 mmol/L (98-107); Creatinine, Serum 0.71 mg/dL (0.55-1.02); EST Glomerular Filtration Rate 103 mL/min (>60); Est Glom Filt Rate - Afr Amer 125 mL/min (>60); Globulin 4.2 g/dL (2.2-4.2); Glucose 100 mg/dL (74-106); Potassium 3.9 mmol/L (3.5-5.1); Protein, Total 7.9 g/dL (6.4-8.2); Sodium Level 140 mmol/L (136-145)
[2020-12-07 15:51] LABS: Erythrocyte Sedimentation Rate 34 mm/hr (0-30)
== END ==
PROVIDERS: PCP Family Medicine; Referring Provider Family Medicine; Visit Provider Family Medicine
DX: R10.9 Unspecified abdominal pain (principal)
CPT/HCPCS: 36415; 80053; 85025; 85652

== ENCOUNTER → 2020-12-13 09:21 | Outpatient (CLI) | payer OTHER, SELFPAY ==
[2020-09-21 14:14] VITALS: BMI 35.0
--- NOTE | 2020-12-13 09:26 | US_ITS ---
STUDY: ABDOMINAL ULTRASOUND - RIGHT UPPER QUADRANT REASON FOR VISIT: Female, 30 years old . Two-week history of right upper quadrant pain. TECHNIQUE: Ultrasound evaluation of the right upper quadrant was performed with real-time and static irby-scale imaging. TECHNICAL QUALITY: Adequate. COMPARISON: None. FINDINGS: Liver: The liver measures 15 cm. There is increased echogenicity consistent with fatty infiltration. The bile ducts are within normal limits. There is hepatic color flow. The direction of portal flow is hepatopetal. There is no demonstrated mass lesion. Gallbladder: Normal distended gallbladder. The gallbladder wall measures 2.8 mm. There is a positive sonographic Diaz''s sign. There is no pericholecystic fluid. There are multiple echogenic structures within the gallbladder, consistent with multiple small gallstones. Sludge is seen within the gallbladder lumen as well. Common Bile Duct (C.B.D.): The common bile duct is dilated and measures 10.4 mm. Pancreas: Normal size of the head, body and tail of the pancreas. There is normal echogenicity of the pancreas. There is no demonstrated pancreatic mass or cyst. Right Kidney: Normal size of the right kidney. The right kidney measures 10.9 cm x 4.9 cm x 4.3 cm. Normal renal cortex. The right cortex measures 1.3 cm. There is no demonstrated renal mass or cyst. There is no right hydronephrosis. US/Gallbladder IMPRESSION: Fatty infiltration of the liver. Multiple small gallstones. Dilated common bile duct. Electronically Signed: Parveen Rey MD at 15:31 EDT , Service support ,
[2020-12-13 11:28] LABS: AST(SGOT) 248 U/L (15-37); Alanine Aminotransfer ALT/SGPT 764 U/L (13-56); Albumin, Serum 3.7 g/dL (3.2-5.0); Alkaline Phosphatase 362 U/L (45-117); Bilirubin, Direct 0.41 mg/dL (0.00-0.30); Globulin 4.5 g/dL (2.2-4.2); Protein, Total 8.2 g/dL (6.4-8.2)
[2020-12-14 09:08] LABS: Amylase 38 U/L (25-115); Lipase 87 U/L (73-393)
[2020-12-14 14:22] LABS: Ferritin 25 ng/mL (8-252); GGTP 590 U/L (5-55); Iron 220 ug/dL (50-170)
== END ==
PROVIDERS: PCP Family Medicine; Referring Provider Family Medicine; Visit Provider Family Medicine
DX: R10.9 Unspecified abdominal pain (principal)
CPT/HCPCS: 36415; 76705; 80076; 82150; 82728; 82977; 83540; 83690

== ENCOUNTER → 2020-12-15 06:46 | Outpatient (CLI) | payer OTHER, SELFPAY ==
[2020-09-21 14:14] VITALS: BMI 35.0
[2020-12-15 08:03] LABS: Amylase 36 U/L (25-115); Ferritin 71 ng/mL (8-252); GGTP 1002 U/L (5-55); Iron 70 ug/dL (50-170); Lipase 111 U/L (73-393)
[2020-12-16 06:08] LABS: HEPATITIS B SURFACE AG Negative (Negative); Hepatitis A AB, Total Negative (Negative); Hepatitis A IgM Antibody Negative (Negative); Hepatitis B Core AB IgM Negative (Negative); Hepatitis B Core Ab Total Negative (Negative); Hepatitis C Ab <0.1 s/co ratio (0.0-0.9)
[2020-12-16 09:34] LABS: Hep B Surface Antibodies Reactive (.)
== END ==
PROVIDERS: PCP Family Medicine; Referring Provider Family Medicine; Visit Provider Family Medicine
DX: R10.9 Unspecified abdominal pain (principal)
CPT/HCPCS: 36415; 82150; 82728; 82977; 83540; 83690; 86704; 86705; 86706; 86708; 86709; 86803; 87340

== ENCOUNTER → 2020-12-19 06:36 | Outpatient (CLI) | payer OTHER, SELFPAY ==
[2020-09-21 14:14] VITALS: BMI 35.0
[2020-12-19 08:12] LABS: AST(SGOT) 460 U/L (15-37); Alanine Aminotransfer ALT/SGPT 1314 U/L (13-56); Albumin, Serum 3.7 g/dL (3.2-5.0); Alkaline Phosphatase 656 U/L (45-117); Bilirubin, Direct 0.56 mg/dL (0.00-0.30); Globulin 4.5 g/dL (2.2-4.2); Protein, Total 8.2 g/dL (6.4-8.2)
== END ==
PROVIDERS: PCP Family Medicine; Referring Provider Family Medicine; Visit Provider Family Medicine
DX: R79.89 Other specified abnormal findings of blood chemistry (principal)
CPT/HCPCS: 36415; 80076

== ENCOUNTER → 2020-12-25 08:33 | Outpatient (CLI) | payer OTHER, SELFPAY ==
[2020-09-21 14:14] VITALS: BMI 35.0
--- NOTE | 2020-12-25 09:12 | MRI_ITS ---
STUDY: MR MRCP WITHOUT CONTRAST REASON FOR EXAM: Female, 30 years old. ELEVATED LFTS TECHNIQUE: Standard MRCP technique was utilized. 3-D postprocess images were created. COMPARISON: None. FINDINGS: The study is limited by patient motion. Gall Bladder: There are multiple small gallstones noted in the gallbladder, measuring approximately 2 -- 3 mm each. Cystic duct: Normal caliber. No ductal stone identified. Intrahepatic ducts: Normal caliber. No ductal stone identified. Common hepatic duct: Normal caliber. No ductal stone identified. Common bile duct: Dilated, measuring up to 10 mm. No ductal stones identified. Pancreatic duct: Normal caliber. No ductal stone identified. The liver, spleen, pancreas, adrenal glands and kidneys are grossly normal in contour and signal intensity. The visualized bowel demonstrates no evidence of obstruction. The aorta is normal in caliber. MRI/MRCP Abdomen without Contrast IMPRESSION: Study limited by patient motion. Multiple small gallstones. Dilated common bile duct. No ductal stones identified. Electronically Signed: Lizandro Bee MD at 15:18 EDT Tel , Service support ,
[2020-12-25 09:14] LABS: Hematocrit 39.4 % (37-47); Hemoglobin 12.7 g/dL (12.0-15.0); Mean Corp Hgb Conc 32.2 g/dL (32-36); Mean Corpuscular Volume 92.9 fL (81-99); Mean Platelet Vol. 12.1 fl (6.2-12.0); Platelet Count 247 K/mm3 (150-450); RBC Distribution Width CV 13.4 % (11.6-14.6); RBC Distribution Width SD 45.3 fl (35.1-43.9); Red Blood Count 4.24 M/mm3 (4.2-5.4); White Blood Count 6.9 K/mm3 (4.4-11.0)
[2020-12-25 09:41] LABS: AST(SGOT) 37 U/L (15-37); Alanine Aminotransfer ALT/SGPT 385 U/L (13-56); Albumin, Serum 3.8 g/dL (3.2-5.0); Alkaline Phosphatase 393 U/L (45-117); Bilirubin, Direct 0.37 mg/dL (0.00-0.30); Globulin 4.4 g/dL (2.2-4.2); Protein, Total 8.2 g/dL (6.4-8.2)
== END ==
PROVIDERS: Internal Medicine Gastroenterology; PCP Family Medicine; Referring Provider Family Medicine; Visit Provider Family Medicine
DX: R79.89 Other specified abnormal findings of blood chemistry (principal)
CPT/HCPCS: 36415; 74181; 80076; 85027

== ENCOUNTER → 2021-03-07 13:43 | Outpatient (CLI) | payer OTHER, SELFPAY ==
[2020-09-21 14:14] VITALS: BMI 35.0
--- NOTE | 2021-03-07 13:46 | RAD_ITS ---
STUDY: X-RAY - ABDOMEN/PELVIS REASON FOR EXAM: Female, 30 years old. CBD STENT TECHNIQUE: AP supine and upright views of the abdomen and pelvis. COMPARISON: None. FINDINGS: Normal visualized lung bases. There is an unremarkable bowel gas pattern. There is no demonstrated free abdominal air. The visualized liver, spleen and kidneys are grossly normal in size and morphology. Biliary stent projects in the right upper abdomen. Normal soft tissue structures. Normal visualized osseous structures. RAD/Abd Inc Decub and/or Erect IMPRESSION: Right upper quadrant biliary stent. Electronically Signed: Harlan Lawrence MD ([place]) at 9:30 EDT , Service support ,
== END ==
PROVIDERS: PCP Family Medicine; Referring Provider Internal Medicine Gastroenterology; Visit Provider Internal Medicine Gastroenterology
DX: Z96.89 Presence of other specified functional implants (principal)
CPT/HCPCS: 74019

== ENCOUNTER → 2021-04-18 08:21 | Outpatient (CLI) | payer OTHER, SELFPAY ==
--- NOTE | 2021-04-18 08:23 | RAD_ITS ---
STUDY: X-RAY - ESOPHAGUS (BARIUM SWALLOW) WITH FLUOROSCOPY REASON FOR EXAM: Female, 30 years old. DYSPHAGIA TECHNIQUE: 15 view(s) of the esophagus were obtained following swallowing of barium. FLUOROSCOPY TIME (if supplied): (48 seconds) minutes/seconds COMPARISON: None. FINDINGS: There is no demonstrated esophageal foreign body. There is no demonstrated stricture or mucosal abnormality. Normal gastroesophageal junction, without a demonstrated hiatal hernia. The patient ingested a 12 mm tablet of barium. The tablet is trapped at the gastroesophageal junction. Normal visualized aortic arch and descending thoracic aorta. Normal visualized pulmonary parenchyma. Normal visualized osseous structures of the thorax. RAD/Esophagus Single Contrast IMPRESSION: Normal plain film x-ray examination (barium swallow) of the esophagus. The 12 mm tablet of barium is trapped at the gastroesophageal junction. Electronically Signed: Parveen Rey MD at 8:56 EDT , Service support ,
== END ==
PROVIDERS: PCP Family Medicine; Referring Provider Internal Medicine Gastroenterology; Visit Provider Internal Medicine Gastroenterology
DX: R13.10 Dysphagia, unspecified (principal)
CPT/HCPCS: 74220

== ENCOUNTER → 2021-06-07 10:10 | Outpatient (CLI) | payer OTHER, SELFPAY ==
[2021-06-07 11:06] LABS: Mucous, Urine 0 SEEN /hpf (<or=2+); Red Blood Cells-Urine 0 SEEN /hpf (0-5)
[2021-06-07 11:10] LABS: Color, Urine Yellow (Yellow); Glucose, Dipstick Normal (Normal); Ketone-Dipstick Negative (Negative); Leukocyte Esterase-Dipstick 500 /ul (Negative); Nitrite-Dipstick Negative (Negative); Occult Blood-Urine 250 /ul (Negative); Protein-Dipstick 30 mg/dl (Negative); Specific Gravity, Urine 1.005 (1.002-1.030); Urine Bilirubin Dipstick Negative (Negative); Urine Clarity Clear (Clear); Urine Urobilinogen Normal (Normal)
[2021-06-07 11:18] LABS: White Blood Cells 10-25 SEEN /hpf (0-5)
[2021-06-07 11:19] LABS: Bacteria 2+ /hpf (None Seen); Squamous Epithelial Cells - UA 0-5 SEEN /hpf (5-10)
== END ==
PROVIDERS: Physician Assistant; PCP Family Medicine; Referring Provider Obstetrics & Gynecology; Visit Provider Obstetrics & Gynecology
DX: N39.0 Urinary tract infection, site not specified (principal)
CPT/HCPCS: 81001; 87086

== ENCOUNTER → 2021-06-21 14:09 | Outpatient (CLI) | payer OTHER, SELFPAY | PROVIDERS: PCP Family Medicine; Referring Provider Internal Medicine Gastroenterology; Visit Provider Internal Medicine Gastroenterology | DX: Z11.59 Encounter for screening for other viral diseases (principal) | CPT/HCPCS: 87635; C9803; U0005; U0003 ==

== ENCOUNTER → 2021-07-25 08:30 | Outpatient (CLI) | payer OTHER, SELFPAY ==
[2021-07-25 10:37] LABS: Anion Gap 9 (5-15); BUN 10 mg/dL (7-18); BUN/Creat Ratio 15.3 RATIO (10-20); Calcium,Total 8.9 mg/dL (8.5-10.1); Chloride 108 mmol/L (98-107); Cholesterol 140 mg/dL (200); Creatinine, Serum 0.66 mg/dL (0.55-1.02); EST Glomerular Filtration Rate 114 mL/min (>60); Est Glom Filt Rate - Afr Amer 138 mL/min (>60); Glucose 91 mg/dL (74-106); High Density Lipoprotein 57 mg/dL; Potassium 3.9 mmol/L (3.5-5.1); Sodium Level 140 mmol/L (136-145); Triglycerides 57 mg/dL; Very Low Density Lipoprotein 11 mg/dL (5-40)
== END ==
PROVIDERS: PCP Family Medicine; Referring Provider Family Medicine; Visit Provider Family Medicine
DX: Z13.1 Encounter for screening for diabetes mellitus (principal); Z13.220 Encounter for screening for lipoid disorders
CPT/HCPCS: 36415; 80048; 80061

== ENCOUNTER → 2022-09-25 | Outpatient (CLI) | payer OTHER, SELFPAY ==
[2022-09-26 21:07] LABS: Chlamydia By Nucleic Acid AMP Negative (Negative)
[2022-09-26 23:05] LABS: Gonococcus By Nucleic Acid AMP Negative (Negative)
== END | disposition home or self-care (01) ==
PROVIDERS: PCP Family Medicine; Referring Provider Obstetrics & Gynecology; Visit Provider Obstetrics & Gynecology
DX: Z34.90 Encounter for supervision of normal pregnancy, unspecified, unspecified trimester (principal)
CPT/HCPCS: 87086; 87088; 87491; 87591

== ENCOUNTER → 2022-10-02 | Outpatient (CLI) | payer OTHER, SELFPAY ==
[2022-10-02 07:37] LABS: Absolute Lymphocyte Count 1.92 X10^3/uL (0.83-4.51); Absolute Neutrophil Count 5.7 X10^3/uL (2.0-7.7); Basophil# 0.07 X10^3/uL; Basophil% 0.8 % (0-1); Eosinophil# 0.35 X10^3/uL; Eosinophils% 4.1 % (0-5); Hematocrit 38.6 % (37-47); Hemoglobin 12.5 g/dL (12.0-15.0); Lymphocyte # 1.92 X10^3/ul (0.83-4.51); Lymphocyte % 22.6 % (19-41); Mean Corp Hgb Conc 32.4 g/dL (32-36); Mean Corpuscular Hgb 29.8 pg (27.0-32.0); Mean Corpuscular Volume 92.1 fL (81-99); Mean Platelet Vol. 11.7 fl (6.2-12.0); Monocyte# 0.42 X10^3/uL; Monocyte% 4.9 % (0-10); NRBC Flagged by Analyzer 0 % (0-5); Neutrophil # 5.69 X10^3/uL (2.7-7.7); Neutrophil % 67.1 % (47-70); Platelet Count 225 K/mm3 (150-450); RBC Distribution Width CV 12.9 % (11.6-14.6); RBC Distribution Width SD 43.2 fl (35.1-43.9); Red Blood Count 4.19 M/mm3 (4.2-5.4); White Blood Count 8.5 K/mm3 (4.4-11.0)
[2022-10-02 08:21] LABS: Glucose Challenge Gest 1H 50g 153 mg/dL (70-140)
[2022-10-02 09:38] LABS: HIV - WCH Non-Reactive (Nonreactive); Hepatitis B Surface Antigen Non-Reactive (Nonreactive); Hepatitis C Antibody Non-Reactive (Nonreactive); Rubella IgG Reactive (Nonreactive); Syphilis Antibodies Non-reactive
== END | disposition home or self-care (01) ==
PROVIDERS: PCP Family Medicine; Referring Provider Obstetrics & Gynecology; Visit Provider Obstetrics & Gynecology
DX: O99.210 Obesity complicating pregnancy, unspecified trimester (principal)
CPT/HCPCS: 36415; 82950; 85025; 86703; 86762; 86780; 86803; 86850; 86900; 86901; 87340

== ENCOUNTER → 2022-10-08 | Outpatient (CLI) | payer OTHER, SELFPAY ==
[2022-10-08 07:28] LABS: Glucose GTT-Gestation. Fasting 90 mg/dL (<105)
[2022-10-08 08:23] LABS: Glucose GTT-Gestational 1 Hr 141 mg/dL (<190)
[2022-10-08 10:04] LABS: Glucose GTT-Gestational 2 Hr 119 mg/dL (<165)
[2022-10-08 10:43] LABS: Glucose GTT-Gestational 3 Hr 103 L (<145)
== END | disposition home or self-care (01) ==
PROVIDERS: PCP Family Medicine; Referring Provider Advanced Practice Midwife; Visit Provider Advanced Practice Midwife
DX: Z13.1 Encounter for screening for diabetes mellitus (principal)
CPT/HCPCS: 36415; 82951; 82952

== ENCOUNTER → 2023-01-18 | Outpatient (CLI) | payer OTHER, SELFPAY ==
[2023-01-18 08:34] LABS: Absolute Lymphocyte Count 1.95 X10^3/uL (0.83-4.51); Absolute Neutrophil Count 7.9 X10^3/uL (2.0-7.7); Basophil# 0.04 X10^3/uL; Basophil% 0.4 % (0-1); Eosinophil# 0.22 X10^3/uL; Eosinophils% 2.1 % (0-5); Hematocrit 31.7 % (37-47); Hemoglobin 10.4 g/dL (12.0-15.0); Lymphocyte # 1.95 X10^3/ul (0.83-4.51); Lymphocyte % 18.2 % (19-41); Mean Corp Hgb Conc 32.8 g/dL (32-36); Mean Corpuscular Hgb 30.1 pg (27.0-32.0); Mean Corpuscular Volume 91.9 fL (81-99); Mean Platelet Vol. 11.2 fl (6.2-12.0); Monocyte# 0.47 X10^3/uL; Monocyte% 4.4 % (0-10); NRBC Flagged by Analyzer 0 % (0-5); Neutrophil # 7.94 X10^3/uL (2.7-7.7); Neutrophil % 73.9 % (47-70); Platelet Count 283 K/mm3 (150-450); RBC Distribution Width CV 12.3 % (11.6-14.6); RBC Distribution Width SD 41.2 fl (35.1-43.9); Red Blood Count 3.45 M/mm3 (4.2-5.4); White Blood Count 10.7 K/mm3 (4.4-11.0)
[2023-01-18 09:06] LABS: Glucose Challenge Gest 1H 50g 221 mg/dL (70-140)
[2023-01-20 08:31] LABS: HIV - WCH Non-Reactive (Nonreactive); Syphilis Antibodies Non-reactive
== END | disposition home or self-care (01) ==
LOC: LAB 07:53
PROVIDERS: PCP Family Medicine; Referring Provider Obstetrics & Gynecology; Visit Provider Obstetrics & Gynecology
DX: O09.90 Supervision of high risk pregnancy, unspecified, unspecified trimester (principal); Z3A.00 Weeks of gestation of pregnancy not specified
CPT/HCPCS: 36415; 82950; 85025; 86703; 86780

== ENCOUNTER 2023-02-19 11:30 | Outpatient (RCR) | payer OTHER, SELFPAY | END 2023-03-03 23:59 | LOC: DC 11:30 | PROVIDERS: PCP Family Medicine; Referring Provider Nurse Practitioner Women's Health; Visit Provider Nurse Practitioner Women's Health | DX: O24.419 Gestational diabetes mellitus in pregnancy, unspecified control (principal); Z3A.00 Weeks of gestation of pregnancy not specified; Z71.3 Dietary counseling and surveillance | CPT/HCPCS: 97802; 97803 ==

== ENCOUNTER 2023-03-25 10:04 | Outpatient (CLI) | payer OTHER, SELFPAY ==
[2023-03-25 10:24] VITALS: BP 122/75; PULSE 75
[2023-03-25 10:45] VITALS: BMI 37.7
--- NOTE | 2023-03-25 14:20 | OB.TRI.PN ---
Progress Notes Date of Service: 03/25/23 Progress Note: Patient presents for triage evaluation secondary to Scheduled NST FHT: Twin A: 145 Twin B: 135 both with Moderate variability reactive no decelerations category I tracing [place]: no Contractions Assessment and plan: Reactive NST, reassuring maternal and status patient discharged to home to follow-up in office or on friday for scheduled C/S. See problem list details for additional plan information. Charges/Coding Multi Select Codes Urinary/Genital Urinary/Genital CPT Codes: 33993-77 non-stress test Interp Assessment & Plan (1) IUGR (intrauterine growth restriction): COMMENT: B measuring 6%ile EFW 2044g, twice weekly testing and deliver 37 weeks. (2) Gestational diabetes mellitus (GDM): COMMENT: BS fasting & 2hr post meals, gis analyst developer referral (3) Dichorionic diamniotic twin in first trimester: COMMENT: weekly bpps weekly after 34 weeks, growth q4 weeks At 32 weeks A-43%, B-31% appropriate concordant growth at 8.5% (4) Obesity affecting : (5) Asthma affecting , antepartum: COMMENT: Ken Ozuna Singulair (6) Seasonal allergies: (7) Hx of section: COMMENT: breech, RLTCS scheduled for 04/04 @ 7:10 with (8) Supervision of high-risk : COMMENT: PRR , BANG 04/18/23, suman Kimgina, Anthony (9) : QUALIFIERS: Weeks of gestation: 36 weeks Qualified Code(s): Z3A.36 - 36 weeks gestation of COMMENT: discussed genetic & carrier testing, anatomy nl (additional views needed) (10) Eosinophilic esophagitis:
== END 2023-03-25 10:47 | disposition home or self-care (01) ==
LOC: WPOUT 10:06 → WP 10:07
PROVIDERS: PCP Family Medicine; Referring Provider Advanced Practice Midwife; Visit Provider Advanced Practice Midwife
DX: O36.5930 Maternal care for other known or suspected poor fetal growth, third trimester, not applicable or unspecified (principal); O24.419 Gestational diabetes mellitus in pregnancy, unspecified control; O99.213 Obesity complicating pregnancy, third trimester; O99.513 Diseases of the respiratory system complicating pregnancy, third trimester; O99.613 Diseases of the digestive system complicating pregnancy, third trimester; J45.909 Unspecified asthma, uncomplicated; K20.0 Eosinophilic esophagitis; Z3A.36 36 weeks gestation of pregnancy
CPT/HCPCS: 59025; 87081; 99221; G0378

== ENCOUNTER 2023-03-28 09:55 | Inpatient (IN) | payer OTHER, SELFPAY ==
[2023-03-28] VITALS (14 sets, daily range): BP systolic 112–139; BP diastolic 54–89; PULSE 66–86; RESP 16; TEMP 36.5–37.1; O2SAT 94–98; BMI 38.0
[2023-03-28] MEDS: Lactated Ringers 1,000 ML 900 ML IV (10:25)
[2023-03-28 10:38] LABS: Absolute Neutrophil Count 7.1 X10^3/uL (2.0-7.7); Basophil# 0.08 X10^3/uL; Basophil% 0.8 % (0-1); Eosinophil# 0.26 X10^3/uL; Eosinophils% 2.5 % (0-5); Hematocrit 36.9 % (37-47); Hemoglobin 12.1 g/dL (12.0-15.0); Lymphocyte % 22.7 % (19-41); Mean Corp Hgb Conc 32.8 g/dL (32-36); Mean Corpuscular Hgb 30.4 pg (27.0-32.0); Mean Corpuscular Volume 92.7 fL (81-99); Mean Platelet Vol. 12.8 fl (6.2-12.0); Monocyte# 0.64 X10^3/uL; Monocyte% 6.1 % (0-10); NRBC Flagged by Analyzer 0 % (0-5); Neutrophil # 7.07 X10^3/uL (2.7-7.7); Neutrophil % 66.8 % (47-70); Platelet Count 153 K/mm3 (150-450); RBC Distribution Width CV 14.6 % (11.6-14.6); RBC Distribution Width SD 49.2 fl (35.1-43.9); Red Blood Count 3.98 M/mm3 (4.2-5.4); White Blood Count 10.6 K/mm3 (4.4-11.0)
[2023-03-28 11:05] LABS: Bedside Glucose 78 mg/dL (74-106)
[2023-03-28 11:11] LABS: Syphilis Antibodies Non-reactive
[2023-03-28] MEDS: Acetaminophen 500 MG Tablet 1000 MG PO ×2 (11:31→18:01)
[2023-03-28] MEDS: Sodium Citrate/Citric Acid 30 ML UDC PO (11:31)
[2023-03-28] MEDS: Lactated Ringers 1,000 ML 150 ML IV (11:41)
[2023-03-28] MEDS: Cefazolin 2 GM in 0.9% Normal Saline 100 ML IV (16:05)
--- NOTE | 2023-03-28 16:15 | HP.PCM.OB_ITS ---
HPI - General General Date of Admission: 03/28/23 HPI Narrative SUE ULRICH, is a 32 F who presents for RLTCS twins, delivering at 37 weeks due to IUGR of one twin. Maternal Data Information BANG Calculator Estimated Delivery Date Method Current WG Current Estimate 04/18/23 LMP (Certain) 37w 0d # 2 PFSH PFSH Medical History (Updated 03/28/23 @ 10:14 by Shobha Jordan) Acute pharyngitis Asthma affecting , antepartum Autoimmune disease Gestational diabetes Obesity affecting depression Urinary tract infection with hematuria Home Medications albuterol sulfate 90 mcg/actuation aerosol inhaler (ProAir HFA) 2 puff i nhalation Q6H PRN asthma 01/12/20 [History Last Taken 08/08/20] fluticasone fur. 100 mcg-umeclid 62.5 mcg-vilant 25 mcg inhalat.powder (Trelegy Ellipta) 1 inh inhalation DAILY 11/23/21 [History Last Taken Unknown] levocetirizine 5 mg tablet (Xyzal) 5 mg PO DAILY 11/23/21 [History Last Taken Unknown] montelukast 10 mg tablet (Singulair) 10 mg PO DAILY 11/23/21 [History Last Taken Unknown] omeprazole 40 mg capsule,delayed release 40 mg PO DAILY 11/23/21 [History Last Taken Unknown] blood sugar diagnostic (Blood Glucose Test strips) #120 ea 01/20/23 [Rx Last Taken Unknown] blood-glucose meter #1 ea 01/20/23 [Rx Last Taken Unknown] lancets #100 ea 01/20/23 [Rx Last Taken Unknown] Allergy/AdvReac Type Severity Reaction Status Date / Time cat dander Allergy Intermediate Hives Verified 03/25/23 09:35 cigarette smoke Allergy Intermediate Other Verified 03/25/23 09:35 dog dander Allergy Intermediate Hives Verified 03/25/23 09:35 perfume Allergy Intermediate Other Verified 03/25/23 09:35 Seasonal Allergies: Uncoded Allergy Intermediate Hives Verified 03/25/23 09:35 aspirin Allergy Other Verified 03/25/23 09:35 [From [facility]] caffeine Allergy Other Verified 03/25/23 09:35 [From [facility]] Family History Grandmother Breast cancer Grandfather Cancer Mother Diabetes Father Diabetes Surgical History (Updated 03/28/23 @ 10:17 by Shobha Jordan) History of esophagogastroduodenoscopy (EGD) History of surgery S/P cholecystectomy Social History adopted: No household members: spouse and children housing: house number of children: 1 current occupational status: employed current occupation: [employer] current occupational exposures/hazards: No pets and animals: Yes pets and animals: dog(s) history of recent travel: No sexually active: Yes Smoking Status: Never smoker second hand exposure: No alcohol intake: current alcohol intake frequency: holidays/special occasions only details: occasional- not while substance use type: does not use diet: other well-balanced diet: daily or most days caffeine: Yes Type: coffee Number of servings: 1 eating out: 1-3 times/week during the past year weight has: remained stable what type of physical activity do you participate in: none soy/pentecostalism: None seatbelt use: always do you feel safe at home: Yes additional social history: Anthony blankenship History 2 Elective abortions Hx Para 1 Spontaneous abortions Hx # Term Pregnancies Ectopic pregnancies Hx # Pregnancies Multiple births # of living children 1 Past Pregnancies Del. Date Name GA/Weeks Outcome Route Bth Weight Gen Labor Lgth Anesthesia [facility] Provider FOB 08/11/20 On[place] 40 live - full term 7lbs 5oz Male spinal [facility] SM Delivery Date: 08/11/20 Last Updated by: Tenisha Rodriguez Breech presentation; proteinuria; elevated BP Visit Details Expected Delivery Route/Plan prior section ,desires repeat Plans Covid status: [] Flu vaccine: [] Tdap vaccine: [] Rhogam: [] LARC form signed: [] Problem list reviewed and updated with the most current plan of care details and appropriate orders placed. Relevant counseling for the gestational age provided. Continue routine care and follow up unless otherwise noted in visit notes/problem list details OB Flowsheet Initial Weight: Not Recorded Date -?-?-?-?-?-?-?-?-?-?-?-?- EGA Weight BP Urine Prot -?-?-?-?-?-?-?-?-?-?-?-?- Glucose FHR FuHt Pres Dilation -?-?-?-?-?-?-?-?-?-?-?-?- Effaced St Visit Note 09/25/22 -?-?-?-?-?-?-?-?-?-?-?-?- 10w 5d 205 lb 4 oz 118/78 -?-?-?-?-?-?-?-?-?-?-?-?- A -?-?-?-?-?-?-?-?-?-?-?-?- B A -?-?-?-?-?-?-?-?-?-?-?-?- B -?-?-?-?-?-?-?-?-?-?-?-?- A -?-?-?-?-?-?-?-?-?-?-?-?- B A JV- di/di twin g estation measuring 11 weeks 0 days (both) and consistent with LMP. early glucola ordered. declines nipt. heart rates 180 and 160 -?-?-?-?-?-?-?-?-?-?-?-?- B 10/22/22 -?-?-?-?-?-?-?-?-?-?-?-?- 14w 4d 202 lb 8 oz 111/71 Nega tive -?-?-?-?-?-?-?-?-?-?-?-?- Negative A 160 -?-?-?-?-?-?-?-?-?-?-?-?- B 147 A -?-?-?-?-?-?-?-?-?-?-?-?- B -?-?-?-?-?-?-?-?-?-?-?-?- A -?-?-?-?-?-?-?-?-?-?-?-?- B A JV - no complain ts today. both fetus' growth consistent with established GA. anatomy scan ordered. still look Di/Di -?-?-?-?-?-?-?-?-?-?-?-?- B 11/19/22 -?-?-?-?-?-?-?-?-?-?-?-?- 18w 4d 205 lb 2 oz 90/69 -?-?-?-?-?-?-?-?-?-?-?-?- A 157 -?-?-?-?-?-?-?-?-?-?-?-?- B 155 A -?-?-?-?-?-?-?-?-?-?-?-?- B -?-?-?-?-?-?-?-?-?-?-?-?- A -?-?-?-?-?-?-?-?-?-?-?-?- B A SM- no vb donna casas -?-?-?-?-?-?-?-?-?-?-?-?- B 12/17/22 -?-?-?-?-?-?-?-?-?-?-?-?- 22w 4d 210 lb 8 oz 120/86 110/76 Negative -?-?-?-?-?-?-?-?-?-?-?-?- Negative A 148 -?-?-?-?-?-?-?-?-?-?-?-?- B 145 A -?-?-?-?-?-?-?-?-?-?-?-?- B -?-?-?-?-?-?-?-?-?-?-?-?- A -?-?-?-?-?-?-?-?-?-?-?-?- B A KW- +FM, no cram ping/vb/. follow up anatomy on thurs. -?-?-?-?-?-?-?-?-?-?-?-?- B plans repeat C/S 01/17/23 -?-?-?-?-?-?-?-?-?-?-?-?- 27w 0d 219 lb 2 oz 122/81 Nega tive -?-?-?-?-?-?-?-?-?-?-?-?- Negative A 135 -?-?-?-?-?-?-?-?-?-?-?-?- B 153 A -?-?-?-?-?-?-?-?-?-?-?-?- B -?-?-?-?-?-?-?-?-?-?-?-?- A -?-?-?-?-?-?-?-?-?-?-?-?- B A JV- gct and cbc ordered. no complaints other than fatigue. -?-?-?-?-?-?-?-?-?-?-?-?- B 01/31/23 -?-?-?-?-?-?-?-?-?-?-?-?- 29w 0d 219 lb 8 oz 113/79 Nega tive -?-?-?-?-?-?-?-?-?-?-?-?- Negative A 145 -?-?-?-?-?-?-?-?-?-?-?-?- B 155 A -?-?-?-?-?-?-?-?-?-?-?-?- B -?-?-?-?-?-?-?-?-?-?-?-?- A -?-?-?-?-?-?-?-?-?-?-?-?- B A SM- no vb lof go od fm no regular ctx scheduled RLTCS -?-?-?-?-?-?-?-?-?-?-?-?- B 02/10/23 -?-?-?-?-?-?-?-?-?-?-?-?- 30w 3d 219 lb 4 oz 117/83 Nega tive -?-?-?-?-?-?-?-?-?-?-?-?- Negative A 150 -?-?-?-?-?-?-?-?-?-?-?-?- B 155 A -?-?-?-?-?-?-?-?-?-?-?-?- B -?-?-?-?-?-?-?-?-?-?-?-?- A -?-?-?-?-?-?-?-?-?-?-?-?- B A SM- no vb lof go od fm nor egular ctx -?-?-?-?-?-?-?-?-?-?-?-?- B 02/28/23 -?-?-?-?-?-?-?-?-?-?-?-?- 33w 0d 226 lb 4 oz 118/80 Nega tive -?-?-?-?-?-?-?-?-?-?-?-?- Negative A 132 -?-?-?-?-?-?-?-?-?-?-?-?- B 161 A Cephalic -?-?-?-?-?-?-?-?-?-?-?-?- B Cephalic -?-?-?-?-?-?-?-?-?-?-?-?- A -?-?-?--?-?-?-?-?-?-?-?-?- B A JV- most recent growth was normal (discordance 8.5%) NO complaints today other than feeling hot and tired. has another us on 03/20. -?-?-?-?-?-?-?-?-?-?-?-?- B 03/14/23 -?-?-?-?-?-?-?-?-?-?-?-?- 35w 0d 227 lb 4 oz 112/75 Trac e -?-?-?-?-?-?-?-?-?-?-?-?- Negative A 155 -?-?-?-?-?-?-?-?-?-?-?-?- B 150 A Cephalic -?-?-?-?-?-?-?-?-?-?-?-?- B Breech -?-?-?-?-?-?-?-?-?-?-?-?- A -?-?-?-?-?-?-?-?-?-?-?-?- B A SM- no vb lof go od fm no regular ctx. bs well controlled mostly -?-?-?-?-?-?-?-?-?-?-?-?- B 03/25/23 -?-?-?-?-?-?-?-?-?-?-?-?- 36w 4d 228 lb 149/94 Negative -?-?-?-?-?-?-?-?-?-?-?-?- Negative A 145 -?-?-?-?-?-?-?-?-?-?-?-?- B 135 A Cephalic -?-?-?-?-?-?-?-?-?-?-?-?- B Cephalic -?-?-?-?-?-?-?-?-?-?-?-?- A -?-?-?-?-?-?-?-?-?--?-?-?- B A SM- no vb lof go od fm no regular ctx -?-?-?-?-?-?-?-?-?-?-?-?- B 03/28/23 -?-?-?-?-?-?-?-?-?-?-?-?- 37w 0d 222 lb 139/89 -?-?--?-?-?-?-?-?-?-?-?-?- A -?-?-?-?-?-?-?-?-?-?-?-?- B A -?-?-?-?-?-?-?-?-?-?-?-?- B -?-?-?-?-?-?-?-?-?-?-?-?- A -?-?-?-?-?-?-?-?-?-?-?-?- B A -?-?-?-?-?-?-?-?-?-?-?-?- B ROS Constitutional Constitutional: Reports systems reviewed and no addt'l complaints, except as documented Eyes Eyes: Denies change in vision ENT HEENT: Reports systems reviewed and no addt'l complaints, except as documented; Denies headache(s) Cardiovascular Cardiovascular: Reports systems reviewed and no addt'l complaints, except as documented; Denies chest pain or dyspnea Respiratory/Chest Respiratory/Chest: Reports systems reviewed and no addt'l complaints, except as documented Gastrointestinal Gastrointestinal: Reports systems reviewed and no addt'l complaints, except as documented; Denies abdominal pain Genitourinary Genitourinary: Reports systems reviewed and no addt'l complaints, except as documented, contractions Details: present (irregular) and movement Details: present; Denies dysuria or genital lesions Musculoskeletal Musculoskeletal: Reports systems reviewed and no addt'l complaints, except as documented Neurologic Neurologic: Reports systems reviewed and no addt'l complaints, except as documented Endocrine Endocrinology: Reports systems reviewed and no addt'l complaints, except as documented Vital Signs Vital Signs Vital Signs: 03/28/23 11:00 Temperature 97.8 F Temperature Source Temporal Pulse Rate 83 Respiratory Rate 16 Blood Pressure 139/89 H Blood Pressure Mean 105 Blood Pressure Source Monitor Blood Pressure Position Semi-Fowlers Blood Pressure Location Right Arm Pulse Ox 98 Oxygen Delivery Method Room Air Weight Weight: 222 lb Body Mass Index (BMI) 38.0 Physical Exam Const alert, oriented x3, no apparent distress and healthy appearing HEENT normocephalic and moist oral mucous membranes Head and Scalp: atraumatic Neck full ROM, no lymphadenopathy, supple and thyroid normal General: trachea midline Lymph Lymphatic: no lymphadenopathy noted Chest inspection of chest normal Resp normal respiratory effort Cardio regular rate GI normal to inspection, nondistended, normoactive bowel sounds, soft to palpation and non-tender Inspection: gravid external exam normal Manual OB Exam: estimated gestational size appropriate, presentation cephalic, dilated, effaced and station Extremity normal to inspection General Extremity: Negative for edema Skin no rashes or lesions noted Psych mental status grossly normal Labs Labs Labs: Blood Type A POSITIVE Antibody Screen NEGATIVE Hct 36.9 % (37-47) L Hgb 12.1 g/dL (12.0-15.0) Obstetrics US Syphilis Total Ab Non-reactive Rubella IgG Antibody Reactive (Nonreactive) Hep Bs Antigen Non-Reactive (Nonreactive) Chlamydia DNA (ANDREW) Negative (Negative) Neisseria gonorrhoeae DNA (ANDREW) Negative (Negative) HIV 1&2 Antibody Non-Reactive (Nonreactive) Glucose 1 Hr 50 gm 221 mg/dL (70-140) H Rhogam given: No Assessment & Plan (1) IUGR (intrauterine growth restriction): COMMENT: B measuring 6%ile EFW 2044g, twice weekly testing and deliver 37 weeks. (2) Gestational diabetes mellitus (GDM): COMMENT: BS fasting & 2hr post meals, annealer helper referral (3) Dichorionic diamniotic twin in first trimester: COMMENT: weekly bpps weekly after 34 weeks, growth q4 weeks At 32 weeks A-43%, B-31% appropriate concordant growth at 8.5% (4) Obesity affecting : (5) Seasonal allergies: (6) Hx of section: COMMENT: breech, RLTCS scheduled for 04/04 @ 7:10 with (7) Supervision of high-risk : COMMENT: PRR , BANG 04/18/23, sumna Mohr, Anthony (8) : QUALIFIERS: Weeks of gestation: 36 weeks Qualified Code(s): Z3A.36 - 36 weeks gestation of COMMENT: discussed genetic & carrier testing, anatomy nl (additional views needed) (9) Eosinophilic esophagitis: (10) Asthma affecting , antepartum: COMMENT: Ken Ozuna Singulair, zyzol PLAN: Plan plan [facility]
[2023-03-28] MEDS: Ondansetron 4 MG/2 ML Vial IV (16:34)
--- NOTE | 2023-03-28 17:02 | EX.PCM.OBRPT ---
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 Cheung catheter was placed. The patient was placed in the dorsal supine position with leftward tilt. Patient was prepped and draped in the normal sterile fashion. Pfannenstiel skin incision was made with the scalpel and carried through to the underlying layer of fascia with the scalpel. Fascia was nicked in the midline and the incision extended laterally. The rectus bellies were dissected off superiorly and inferiorly with out complication both sharply and bluntly. The peritoneum was entered digitally. The incision was stretched and a low transverse uterine incision was made with the scalpel. The infant's head was delivered atraumatically followed by the anterior and posterior shoulders without complication the rest of the infant delivered. The cord was clamped and cut and the infant was handed off to awaiting nurse. second amniotic sac ruptured and second delivered, delayed cord clamping employed and then cord clampd cut and passed to nurse. The placenta was delivered spontaneously immediately following and was noted to be intact and have a three-vessel cord. The uterus was exteriorized cleared of all clots and debris, and the incision was closed in a single layer closure using #1 Monocryl. The ovaries and fallopian tubes were noted to be within normal limits. The uterus was returned to the maternal abdomen and gutters were cleared of all clots and debris. The peritoneum was closed with 3-0 Monocryl in a running fashion. Fascia was closed with 0 PDS in a running fashion. Subcutaneous tissue was copiously irrigated and the skin was closed with 3-0 Monocryl in a subcuticular fashion. Mepilex dressing was applied without complication. Patient was taken to recovery in stable condition. Amniotic Membrane Rupture Type: Artificial Amniotic Fluid Description: Clear Placenta Disposition: [facility] Cord Vessel Description: 3 Vessels Delayed Cord Clamping: Yes Complications Risks of Surgery Discussed w/Patient: Bleeding, Infection, Need for Future C-Sections and Injury to surrounding structure(s) including bowel and bladder Vaginal Delivery Complication Complications: None Admit VTE Documentation VTE Present on Admission: No VTE Mechan Device Prophylaxis: SCD's Procedures Urinary/Genital [id number]: [id number] Delivery [facility]
--- NOTE | 2023-03-28 17:05 | DCINST_ITS ---
Discharge Instructions Diet Discharge Diet: No restrictions Activity Discharge Activity: May Not Drive (for 2 weeks or while taking narcotic pain medications.), May Shower and May Take a Tub Bath (in 7 days) May shower in (days): 0 May resume sexual activity in: 4-6 weeks Weight Bearing Status: Full weight bearing Lifting Restrictions: 20 pounds Dressing / Incision Call your doctor if your incision/area has: Continuous Slow Oozing, Sudden Increased Bleeding, Increased Pain/ Swelling, Increased Redness and Foul Smelling Discharge Call your doctor if you observe: Fever of 101 or Higher and Using more than 1 pad per hour (for 2 hours) Suture Line Care: Avoid Pulling/Pushing and Avoid Pinching/Bending Cleanse incision/area with: Soap & Water and Keep Dressing Clean & Dry Follow Up Care Please Follow Up With: Faina Guzman MD When: Call [phone] to make an appointment for an incision check in 1-2 weeks. Test Results: Test results from this visit will be discussed in further detail at your follow- up appointment, if applicable. Discharge Plan Admission Admit Date/Time: 03/28/23 09:55 Attending Provider: Faina Guzman Primary Care Provider: Dave Bellamy Discharge Orders/Prescriptions Prescriptions: No Action albuterol sulfate [ProAir HFA] 90 mcg/actuation HFA aerosol inhaler 2 puff INHALATION Q6H PRN (Reason: asthma) montelukast [Singulair] 10 mg tablet 10 mg PO DAILY levocetirizine [Xyzal] 5 mg tablet 5 mg PO DAILY omeprazole 40 mg capsule,delayed release(DR/EC) 40 mg PO DAILY Trelegy Ellipta 100-62.5-25 mcg blister with device 1 inh inhalation DAILY (DME) blood-glucose meter Misc See Rx Instructions .MEDSUPPLY Qty: 1 0RF Rx Instructions: As directed- Test fasting and 2 hours after meals (DME) lancets Misc See Rx Instructions .MEDSUPPLY Qty: 100 6RF Rx Instructions: As directe Fasting & 2 hours post meals (DME) Blood Glucose Test Strip See Rx Instructions .Route Qty: 120 4RF Rx Instructions: As directed- Fasting & 2 hours post meals Referrals / Follow Up: Dave Bellamy MD [Primary Care Provider] -
[2023-03-28] MEDS: Oxytocin 15 Units/NS 250ml 15 UNITS/250 ML IV.SOLN 83 UNITS IV (17:40)
[2023-03-28] MEDS: Ketorolac 30 MG/ML Syringe IV ×2 (18:01→23:58)
[2023-03-28 19:23] LABS: Bedside Glucose 90 mg/dL (74-106)
[2023-03-28] MEDS: Lactated Ringers 1,000 ML 100 ML IV (20:42)
[2023-03-29] VITALS (7 sets, daily range): BP systolic 97–112; BP diastolic 52–71; PULSE 76–84; RESP 16–18; TEMP 36.4–37.3; O2SAT 95–96
[2023-03-29] MEDS: Lansoprazole 15 MG Capsule.DR 30 MG PO ×2 (00:02→22:03)
[2023-03-29] MEDS: Acetaminophen 500 MG Tablet 1000 MG PO ×4 (00:02→18:32)
[2023-03-29] MEDS: LEVOCETIRIZINE DIHYDROCHLORIDE 5 MG PO ×2 (00:03→22:03)
[2023-03-29] MEDS: Enoxaparin 40 MG/0.4 ML Syringe SC (06:22)
[2023-03-29 06:24] LABS: Hematocrit 31.9 % (37-47); Hemoglobin 10.5 g/dL (12.0-15.0); Mean Corp Hgb Conc 32.9 g/dL (32-36); Mean Corpuscular Hgb 30.8 pg (27.0-32.0); Mean Corpuscular Volume 93.5 fL (81-99); Mean Platelet Vol. 12.6 fl (6.2-12.0); Platelet Count 137 K/mm3 (150-450); RBC Distribution Width SD 51.3 fl (35.1-43.9); Red Blood Count 3.41 M/mm3 (4.2-5.4); White Blood Count 15.9 K/mm3 (4.4-11.0)
[2023-03-29 06:37] LABS: Bedside Glucose 82 mg/dL (74-106)
[2023-03-29] MEDS: Lactated Ringers 1,000 ML 100 ML IV (08:01)
[2023-03-29] MEDS: Ketorolac 30 MG/ML Syringe IV ×2 (08:09→13:16)
--- NOTE | 2023-03-29 09:26 | PN.OBGYN_ITS ---
Subjective Subjective Patient doing well without complaints. Tolerating PO. Ambulating and voiding without difficulty. Feeding well. Denies chest pain, shortness of breath, calf pain/swelling, fevers, chills, lightheadedness. Objective Data Objective Data Vital Signs: Vital Signs Temp Pulse Resp BP Pulse Ox O2 Del Method 98.1 F 76 18 101/61 95 Room Air 03/29/23 08:11 03/29/23 08:11 03/29/23 08:11 03/29/23 08:11 03/29/23 08:11 03/29/23 08:11 Oxygen Delivery Method Room Air Weight: 222 lb Body Mass Index (BMI) 38.0 Intake & Output: Intake and Output for Last 24 Hours 03/27/23 03/28/23 03/29/23 23:59 23:59 23:59 Intake Total 2170.33 / 2170.33 Output Total 1500 / 1500 250 / 250 Balance 670.33 / 670.33 -250 / -250 Lab / Micro Data 03/29/23 06:15 Labs: Laboratory Results - last 24 hr 03/28/23 10:25: WBC 10.6, RBC 3.98 L, Hgb 12.1, Hct 36.9 L, MCV 92.7, MCH 30.4, MCHC 32.8, RDW Std Deviation 49.2 H, RDW Coeff of Eveline 14.6, Plt Count 153, MPV 12.8 H, Immature Gran % (Auto) 1.100 H, Neut % (Auto) 66.8, Lymph % (Auto) 22.7, [place] % (Auto) 6.1, Eos % (Auto) 2.5, Baso % (Auto) 0.8, Absolute Neuts (auto) 7.1, Absolute Lymphs (auto) 2.40, Nucleated RBC % 0, Syphilis Total Ab Non- reactive, Blood Type A POSITIVE, Antibody Screen NEGATIVE 03/28/23 10:46: POC Glucose 78 03/28/23 18:41: POC Glucose 90 03/29/23 06:15: WBC 15.9 H, RBC 3.41 L, Hgb 10.5 L, Hct 31.9 L, MCV 93.5, MCH 30.8, MCHC 32.9, RDW Std Deviation 51.3 H, RDW Coeff of Eveline 15.0 H, Plt Count 137 L, MPV 12.6 H 03/29/23 06:18: POC Glucose 82 ROS Constitutional Constitutional: Reports systems reviewed and no addt'l complaints, except as documented; Denies anorexia or headache(s) Cardiovascular Cardiovascular: Reports systems reviewed and no addt'l complaints, except as documented; Denies dizziness, dyspnea, nausea or tachypnea Respiratory/Chest Respiratory/Chest: Reports systems reviewed and no addt'l complaints, except as documented; Denies cough, dyspnea, shortness of breath at rest or tachypnea Gastrointestinal Gastrointestinal: Reports systems reviewed and no addt'l complaints, except as documented; Denies abdominal pain, constipation or nausea Genitourinary Genitourinary: Reports systems reviewed and no addt'l complaints, except as documented; Denies burning urination, difficulty urinating, dysuria, urinary frequency or urinary incontinence Musculoskeletal Musculoskeletal: Reports systems reviewed and no addt'l complaints, except as documented Integumentary Integumentary: Reports systems reviewed and no addt'l complaints, except as documented Neurologic Neurologic: Reports systems reviewed and no addt'l complaints, except as documented; Denies abnormal speech, dizziness or headache(s) Psychiatric Psychiatric: Reports systems reviewed and no addt'l complaints, except as documented Endocrine Endocrinology: Reports systems reviewed and no addt'l complaints, except as documented Hematologic/Lymphatic Hematologic/Lymphatic: Reports systems reviewed and no addt'l complaints, except as documented Physical Exam Const alert, oriented x3 and no apparent distress Neck full ROM Resp normal respiratory effort, normal air movement and no retractions Effort and Inspection: able to speak in complete sentences and symmetric chest movement GI soft to palpation Inspection: incision intact Bladder / Kidney Exam: bladder normal to palpation Uterus Palpation: uterus fundus Extremity normal to inspection and full ROM Psych mental status grossly normal, thought process normal and cooperative Assessment & Plan (1) delivery delivered: COMMENT: RLTCS twins 37 IUGR GDMA1 suman vickey girls PLAN: s/p LTCS PPD # 1 1. routine post care 2. breast feeding- support given 3. rh positive 4. 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
--- NOTE | 2023-03-29 10:05 | CASEMGMT ---
Social Work Assessment Labor and Delivery Unit Date/Time of referral: 03/29/23, 2:14am Referred by: Jennifer James Date/Time of intervention: 03/29/23, 9:30am Reason for Referral: History of depression History obtained from: MOB and FOB Household composition: MOB and FOB, son Javier(2 2) and now twin girls Alberto and Pérez. MOB and FOB have been together 11 years, 7. Patient parent/guardian status: MOB and FOB are guardians of all 3 children. Medical History: MOB, gestational diabetes, hx of PPD Babies: Regaan: Born 03/[birth year], 12:09pm, 3135 grams, Apgars 8 and 9 at one and five minutes. Premature, supernumerary digit Educational Status: MOB completed high school, FOB completed college Financial Status: No concerns. FOB works for [employer], MOB works in [employer]. Both plan to return to work. 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 Childcare/caregivers: FOB and MOB, MOB's mother and sister may help out occasionally. supplies: MOB and FOB have all needed supplies including diapers, wipes, clothing, car seat, crib, bassinet, access to formula if needed. Transportation: They have 4 vehicles Programs/Agencies involved: None Children Services/Legal issues: None Behavioral health issues: Substance abuse: MOB an FOB both deny any history or issues w/substance abuse. No tox screens on this admission. Mental Health: FOB--none. MOB--states had anxiety when [age] and parents going through divorce. She also was in counseling about 8 years ago when going through infertility treatments. ANGELICA did try Zoloft once but did not like how it made her feel. ANGELICA states had some anxiety yesterday as she was in labor 19 hours. Otherwise, ANGELICA states is managing fine with the anxiety. We discussed speaking w/NETWORK PROGRAM MANAGER if starting to have symptoms, and also spoke about getting into counseling if she has any increased anxiety, MOB states understanding. Safety: No safety concerns. Family/Social Stressors: None reported Support System: MOB and FOB report much support on both sides of the family, MOB's parents, FOB's mother, siblings on both sides. depression/anxiety, shaken baby, safe sleeping, counseling resources, [facility], Help Me Grow: SW gave MOB and FOB information on all of these topics and reviewed in particular information about depression and anxiety. As mentioned above, SW spoke w/MOB and FOB about warning signs for PPD and depression and encouraged reaching out to NETWORK PROGRAM MANAGER if she has any increased symptoms, and also encouraged pursuing counseling. Assessment: MOB and FOB appropriate, answered all questions. They report this was a surprise as they struggled w/infertility. MOB holding baby, appropriate in care of . FOB took baby from MOB at the end of the visit, seeming very enthusiastic to hold the child. FOB also appropriate in care of baby. Plan: Baby to go home w/MOB and FOB at discharge. No further social service needs indicated at this time. IRAM Palomo
--- NOTE | 2023-03-29 10:10 | CASEMGMT ---
ocial Work Labor and Delivery Unit Date/Time of referral: 03/29/23, 2:14 am Referred by: Jennifer James Date/Time of intervention: 03/29/23, 9:30am Reason for Referral: History of depression History obtained from: MOB and FOB Household composition: MOB and FOB, son Javier(2 08/05) and now babies Alberto and Pérez. MOB and FOB have been together for 11 years, 7. Patient parent/guardian status: MOB and FOB are guardians of all three children Medical History: MOB, gestational diabetes, hx PPD: Babies: Pérez, Born 03/28/23, 16:31pm, 1760 grams, Apgars 8 and 9 at one and five minutes. Small for gestational age. Alberto: Born 03/28/[birth year], 16:30, 2415 grams. Low blood sugar Educational Status: MOB completed 2 years of collegel, FOB completed some college Financial Status: No concerns other than having two more children and as MOB states, they make medium income. 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 Both plan to return to work. MOB's mother will care for the children when MOB and FOB working. Childcare/caregivers: FOB and MOB, MOB's mother supplies: MOB and FOB have all needed supplies including diapers, wipes, clothing, 2 car seats, 2 cribs, 2 bassinets, access to formula if needed. MOB plans to breast feed. Transportation: They have 2 vehicles Programs/Agencies involved: None Children Services/Legal issues: None Behavioral health issues: Substance abuse: MOB an FOB both deny any history or issues w/substance abuse. No tox screens on this admission. Mental Health: FOB--none. ANGELICA--states has PPD after the of Javier. She states she went on an antianxiety medication prescribed by her PCP for about 5 months. She eventually went off the medication and managed fine. She has not been in therapy, did not feel the need for it. MOB spoke about both she and her watching for signs of PPD, she states she anticipates may have it again. We discussed speaking w/COURT WORKER if starting to have symptoms, and also spoke about getting into counseling if she has symptoms of PPD, MOB states understanding. SW encouraged MOB to speak w/COURT WORKER or with PCP even as soon as she is having symptoms. MOB states never had depression or anxiety prior to having PPD, but states her mother has struggled with anxiety and depression. Safety: No safety concerns. Family/Social Stressors: None reported Support System: MOB and FOB report much support on both sides of the family, MOB's mother, FOB's parents, FOB's cousins. depression/anxiety, shaken baby, safe sleeping, counseling resources, [facility], Help Me Grow: SW gave MOB and FOB information on all of these topics and reviewed in particular information about depression and anxiety. As mentioned above, SW spoke w/MOB and FOB about warning signs for PPD and depression and encouraged reaching out to COURT WORKER if she has any increased symptoms, and also encouraged pursuing counseling. Assessment: MOB and FOB appropriate, answered all questions. The babies were in the bassinets so SW did not observe interaction w/the infants. MOB spoke about feeling guilty as she states did not take care of herself as well as she would have liked during the , and states now her one baby is small and the other is having blood sugar issues. MOB tearful. SW offered support and encouragement to MOB. SW again encouraged MOB to speak w/PCP or COURT WORKER if having symptoms of PPD, and so speak with her doctor even if the symptoms are only for a couple days. MOB states understanding. Both MOB and FOB show insight into MOB's PPD, MOB states FOB is very supportive. Plan: Baby to go home w/MOB and FOB at discharge. No further social service needs indicated at this time. IRAM Palomo
[2023-03-29] MEDS: Senna/Docusate Sodium 1 Tablet PO (12:25)
[2023-03-29] MEDS: 0.9% Saline Lock 10 ML Syringe IV (14:58)
[2023-03-29] MEDS: Naproxen 500 MG Tablet PO (18:33)
[2023-03-30] MEDS: Acetaminophen 500 MG Tablet 1000 MG PO ×4 (00:21→18:00)
[2023-03-30] MEDS: Naproxen 500 MG Tablet PO ×3 (01:33→17:02)
[2023-03-30 02:00] VITALS: BP 121/70; PULSE 87; RESP 18; TEMP 36.5; O2SAT 96
[2023-03-30] MEDS: Enoxaparin 40 MG/0.4 ML Syringe SC (06:34)
--- NOTE | 2023-03-30 08:29 | PCM.PN.OB ---
Subjective Subjective Patient doing well without complaints. Tolerating PO. Ambulating and voiding without difficulty. Feeding well. Denies chest pain, shortness of breath, calf pain/swelling, fevers, chills, lightheadedness. Objective Data Objective Data Vital Signs: Vital Signs Temp Pulse Resp BP Pulse Ox O2 Del Method 97.7 F L 87 18 121/70 H 96 Room Air 03/30/23 02:00 03/30/23 02:00 03/30/23 02:00 03/30/23 02:00 03/30/23 02:00 03/30/23 02:00 Oxygen Delivery Method Room Air Weight: 222 lb Body Mass Index (BMI) 38.0 Intake & Output: Intake and Output for Last 24 Hours 03/28/23 03/29/23 03/30/23 23:59 23:59 23:59 Intake Total 2170.33 / 2170.33 3506.67 / 3506.67 Output Total 1500 / 1500 1850 / 1850 Balance 670.33 / 670.33 1656.67 / 1656.67 Lab / Micro Data Attestation: I reviewed the patient's lab results. 03/29/23 06:15 ROS Constitutional Constitutional: Reports systems reviewed and no addt'l complaints, except as documented; Denies anorexia or headache(s) Cardiovascular Cardiovascular: Reports systems reviewed and no addt'l complaints, except as documented; Denies dizziness, dyspnea, nausea or tachypnea Respiratory/Chest Respiratory/Chest: Reports systems reviewed and no addt'l complaints, except as documented; Denies cough, dyspnea, shortness of breath at rest or tachypnea Gastrointestinal Gastrointestinal: Reports systems reviewed and no addt'l complaints, except as documented; Denies abdominal pain, constipation or nausea Genitourinary Genitourinary: Reports systems reviewed and no addt'l complaints, except as documented; Denies burning urination, difficulty urinating, dysuria, urinary frequency or urinary incontinence Musculoskeletal Musculoskeletal: Reports systems reviewed and no addt'l complaints, except as documented Integumentary Integumentary: Reports systems reviewed and no addt'l complaints, except as documented Neurologic Neurologic: Reports systems reviewed and no addt'l complaints, except as documented; Denies abnormal speech, dizziness or headache(s) Psychiatric Psychiatric: Reports systems reviewed and no addt'l complaints, except as documented Endocrine Endocrinology: Reports systems reviewed and no addt'l complaints, except as documented Hematologic/Lymphatic Hematologic/Lymphatic: Reports systems reviewed and no addt'l complaints, except as documented Physical Exam Const alert, oriented x3 and no apparent distress Neck full ROM Resp normal respiratory effort, normal air movement and no retractions Effort and Inspection: able to speak in complete sentences and symmetric chest movement GI soft to palpation Inspection: incision Bladder / Kidney Exam: bladder normal to palpation Uterus Palpation: uterus fundus firm Extremity normal to inspection and full ROM Psych mental status grossly normal, thought process normal and cooperative Assessment & Plan (1) delivery delivered: COMMENT: RLTCS twins 37 IUGR GDMA1 suman vickey girls PLAN: s/p LTCS PPD # 2 1. routine post care 2. breast feeding- support given 3. rh positive 4. rubella immune (2) Gestational diabetes mellitus (GDM): COMMENT: BS fasting & 2hr post meals, deaf/hard of hearing specialist referral Charges/Coding Multi Select Codes Urinary/Genital Urinary/Genital CPT Codes: No Charge
[2023-03-30 09:07] VITALS: BP 115/70; PULSE 73; RESP 18; TEMP 36.4; O2SAT 96
[2023-03-30] MEDS: Senna/Docusate Sodium 1 Tablet PO (09:19)
[2023-03-30] MEDS: SimETHICONE 80 MG Chewable Tablet PO ×2 (09:20→18:12)
[2023-03-30 16:00] VITALS: PULSE 80; RESP 18; TEMP 36.4
[2023-03-30 19:30] VITALS: BP 126/83; PULSE 78; RESP 16; TEMP 36.4; O2SAT 97
[2023-03-30] MEDS: LEVOCETIRIZINE DIHYDROCHLORIDE 5 MG PO (21:53)
[2023-03-30] MEDS: Lansoprazole 15 MG Capsule.DR 30 MG PO (21:56)
[2023-03-31] MEDS: Acetaminophen 500 MG Tablet 1000 MG PO ×3 (00:37→13:08)
[2023-03-31 01:10] VITALS: BP 124/71; PULSE 65; RESP 18
[2023-03-31] MEDS: Naproxen 500 MG Tablet PO ×2 (01:10→09:48)
[2023-03-31] MEDS: Enoxaparin 40 MG/0.4 ML Syringe SC (06:37)
--- NOTE | 2023-03-31 07:01 | PCM.PN.OB ---
Subjective Subjective Patient doing well without complaints. Tolerating PO. Ambulating and voiding without difficulty. feeding well. Denies chest pain, shortness of breath, calf pain/swelling, fevers, chills, lightheadedness. Objective Data Objective Data Vital Signs: Vital Signs Temp Pulse Resp BP Pulse Ox O2 Del Method 97.6 F L 65 18 124/71 H 97 Room Air 03/30/23 19:30 03/31/23 01:10 03/31/23 01:10 03/31/23 01:10 03/30/23 19:30 03/30/23 19:30 Oxygen Delivery Method Room Air Weight: 222 lb Body Mass Index (BMI) 38.0 Intake & Output: Intake and Output for Last 24 Hours 03/29/23 03/30/23 03/31/23 23:59 23:59 23:59 Intake Total 3506.67 / 3506.67 Output Total 1850 / 1850 Balance 1656.67 / 1656.67 Lab / Micro Data 03/29/23 06:15 ROS Constitutional Constitutional: Reports systems reviewed and no addt'l complaints, except as documented Cardiovascular Cardiovascular: Reports systems reviewed and no addt'l complaints, except as documented Respiratory/Chest Respiratory/Chest: Reports systems reviewed and no addt'l complaints, except as documented Gastrointestinal Gastrointestinal: Reports systems reviewed and no addt'l complaints, except as documented Physical Exam Const alert, oriented x3 and no apparent distress HEENT Head and Scalp: atraumatic Resp normal respiratory effort GI soft to palpation and non-tender Inspection: incision intact, healing well and drainage (none) Bimanual Exam - Vag & Uterus: uterus non-tender Uterus Palpation: uterus fundus firm (below Umbilicus) Assessment & Plan (1) delivery delivered: COMMENT: RLTCS twins 37 IUGR GDMA1 suman vickey girls (2) Gestational diabetes mellitus (GDM): COMMENT: BS fasting & 2hr post meals, 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 routine post care 2. breast feeding- support given 3. rh positive 4. rubella immune
--- NOTE | 2023-03-31 07:02 | DS.PCM_ITS ---
Providers Date of Admission: 03/28/23 Primary Care Physician: Dr. Dave Bellamy MD Reason For Visit: REPEAT C SECTION Diagnosis Discharge Diagnosis (1) delivery delivered: Status: Acute Code(s): O82 - Encounter for delivery without indication (2) Gestational diabetes mellitus (GDM): Status: Acute Code(s): O24.419 - Gestational diabetes mellitus in , unspecified control Plan s/p LTCS PPD # 3 1. routine post care 2. breast feeding- support given 3. rh positive 4. rubella immune Medications at Discharge Home Medications albuterol sulfate 90 mcg/actuation aerosol inhaler (ProAir HFA) 2 puff inhalation Q6H PRN asthma 01/12/20 fluticasone fur. 100 mcg-umeclid 62.5 mcg-vilant 25 mcg inhalat.powder (Trelegy Ellipta) 1 inh inhalation DAILY 11/23/21 levocetirizine 5 mg tablet (Xyzal) 5 mg PO DAILY 11/23/21 montelukast 10 mg tablet (Singulair) 10 mg PO DAILY 11/23/21 omeprazole 40 mg capsule,delayed release 40 mg PO DAILY 11/23/21 blood sugar diagnostic (Blood Glucose Test strips) #120 ea 01/20/23 blood-glucose meter #1 ea 01/20/23 lancets #100 ea 01/20/23 naproxen 500 mg tablet 500 mg PO Q8H #0 tabs 03/30/23 oxycodone 5 mg tablet 5 - 10 mg (1 - 2 x 5 mg) PO Q4H PRN PRN Pain Score 4-10 5 days #14 tabs 03/30/23 Hospital Course Summary of Care Provided Hospital Course: patient presented for [facility] and had an uncomplicated delivery. Postoperatively patient had return of bowel and bladder function and was ambulating well, tolera ting adequate p.o., and was stable for discharge to home on postop day #3. Discharge medications naproxen and Percocet. Follow-up in office in 2 weeks for incision check in 6 weeks for visit. Routine post section diet and activity instructions. Weight / BMI Weight Weight: 222 lb Body Mass Index (BMI) 38.0 ABG / Lab / Microbiology Data 03/29/23 06:15 D/C Instructions Discharge Diet: No restrictions Discharge Activity: May Not Drive (for 2 weeks or while taking narcotic pain medications.), May Shower and May Take a Tub Bath (in 7 days) May shower in (days): 0 May resume sexual activity in: 4-6 weeks Weight Bearing Status: Full weight bearing Call your doctor if your incision/area has: Continuous Slow Oozing, Sudden Increased Bleeding, Increased Pain/ Swelling, Increased Redness and Foul Smelling Discharge Call your doctor if you observe: Fever of 101 or Higher and Using more than 1 pad per hour (for 2 hours) Suture Line Care: Avoid Pulling/Pushing and Avoid Pinching/Bending Cleanse incision/area with: Soap & Water and Keep Dressing Clean & Dry Please Follow Up With: Faina Guzman MD When: Call [phone] to make an appointment for an incision check in 1-2 weeks. Meaningful Use Info Meaningful Use Diagnoses (Choose all that apply): None applicable Discharge Plan Admission Admit Date/Time: 03/28/23 09:55 Attending Provider: Faina Guzman Primary Care Provider: Dave Bellamy Discharge Orders/Prescriptions Prescriptions: New naproxen 500 mg Tablet 500 mg PO Q8H Qty: 0 0RF oxycodone 5 mg Tablet 5 - 10 mg PO Q4H PRN PRN (Reason: Pain Score 4-10) 5 Days Qty: 14 0RF Continued albuterol sulfate [ProAir HFA] 90 mcg/actuation HFA aerosol inhaler 2 puff INHALATION Q6H PRN (Reason: asthma) montelukast [Singulair] 10 mg tablet 10 mg PO DAILY levocetirizine [Xyzal] 5 mg tablet 5 mg PO DAILY omeprazole 40 mg capsule,delayed release(DR/EC) 40 mg PO DAILY Trelegy Ellipta 100-62.5-25 mcg blister with device 1 inh inhalation DAILY No Action (DME) blood-glucose meter Misc See Rx Instructions .MEDSUPPLY Qty: 1 0RF Rx Instructions: As directed- Test fasting and 2 hours after meals (DME) lancets Misc See Rx Instructions .MEDSUPPLY Qty: 100 6RF Rx Instructions: As directe Fasting & 2 hours post meals (DME) Blood Glucose Test Strip See Rx Instructions .Route Qty: 120 4RF Rx Instructions: As directed- Fasting & 2 hours post meals Referrals / Follow Up: Dave Bellamy MD [Primary Care Provider] -
[2023-03-31 08:13] VITALS: BP 146/86; PULSE 96; RESP 18; TEMP 37; O2SAT 96
[2023-03-31] MEDS: Senna/Docusate Sodium 1 Tablet PO (09:48)
[2023-03-31 14:00] VITALS: BP 116/72; PULSE 88; RESP 16; TEMP 36.5
== END 2023-03-31 17:20 | disposition home or self-care (01) | DRG 788 ==
PROVIDERS: Admitting Provider Obstetrics & Gynecology; PCP Family Medicine; Referring Provider Obstetrics & Gynecology; Visit Provider Obstetrics & Gynecology
PROC: 10D00Z1 Extraction of Products of Conception, Low, Open Approach (ICD-10-PCS; CPT 59514; principal; 2023-03-28 11:45)
DX: O30.043 Twin pregnancy, dichorionic/diamniotic, third trimester (principal); Z37.2 Twins, both liveborn; O24.420 Gestational diabetes mellitus in childbirth, diet controlled; O99.214 Obesity complicating childbirth; O36.5932 Maternal care for other known or suspected poor fetal growth, third trimester, fetus 2; J45.909 Unspecified asthma, uncomplicated; K20.0 Eosinophilic esophagitis; O34.211 Maternal care for low transverse scar from previous cesarean delivery; O99.52 Diseases of the respiratory system complicating childbirth; Z3A.37 37 weeks gestation of pregnancy; O99.62 Diseases of the digestive system complicating childbirth; Z79.51 Long term (current) use of inhaled steroids; Z79.899 Other long term (current) drug therapy; Z87.59 Personal history of other complications of pregnancy, childbirth and the puerperium
CPT/HCPCS: 59025; 59050; 82962; 85025; 85027; 86780; 86850; 86900; 86901; 99221; J7040; J7120; A4216; G0378; J2405

== ENCOUNTER → 2023-06-13 | Outpatient (CLI) | payer OTHER, SELFPAY ==
[2023-06-13 07:36] LABS: Glucose GTT- Fasting 90 mg/dL (74-106)
[2023-06-13 08:06] LABS: Glucose GTT-30 minutes 150 mg/dL (110-170)
[2023-06-13 08:32] LABS: Glucose GTT- 1 Hour 135 mg/dL (120-170)
[2023-06-13 09:31] LABS: Glucose GTT- 2 Hour 98 mg/dL (70-120)
== END | disposition home or self-care (01) ==
LOC: LAB 06:45
PROVIDERS: PCP Family Medicine; Referring Provider Advanced Practice Midwife; Visit Provider Advanced Practice Midwife
DX: Z86.32 Personal history of gestational diabetes (principal)
CPT/HCPCS: 36415; 82951; 82952

== ENCOUNTER → 2024-05-12 | Outpatient (CLI) | payer OTHER, SELFPAY ==
[2024-05-19 14:54] LABS: HPV APTIMA, High Risk Negative (Negative)
== END | disposition home or self-care (01) ==
LOC: LABSPEC 14:20
PROVIDERS: PCP Family Medicine; Referring Provider Nurse Practitioner Women's Health; Visit Provider Nurse Practitioner Women's Health
DX: Z12.4 Encounter for screening for malignant neoplasm of cervix (principal)
CPT/HCPCS: 87624; 88175; G0145

== ENCOUNTER → 2024-06-12 | Outpatient (CLI) | payer OTHER, SELFPAY ==
[2024-06-12 07:55] LABS: Absolute Lymphocyte Count 2.55 X10^3/uL (0.83-4.51); Absolute Neutrophil Count 4.9 X10^3/uL (2.0-7.7); Basophil# 0.03 X10^3/uL; Basophil% 0.4 % (0-1); Eosinophil# 0.27 X10^3/uL; Eosinophils% 3.2 % (0-5); Hematocrit 39.2 % (37-47); Hemoglobin 13.1 g/dL (12.0-15.0); Lymphocyte # 2.55 X10^3/ul (0.83-4.51); Lymphocyte % 30.6 % (19-41); Mean Corp Hgb Conc 33.4 g/dL (32-36); Mean Corpuscular Hgb 29.8 pg (27.0-32.0); Mean Corpuscular Volume 89.3 fL (81-99); Mean Platelet Vol. 11.2 fl (6.2-12.0); Monocyte# 0.56 X10^3/uL; Monocyte% 6.7 % (0-10); NRBC Flagged by Analyzer 0 % (0-5); Neutrophil # 4.89 X10^3/uL (2.7-7.7); Neutrophil % 58.7 % (47-70); Platelet Count 238 K/mm3 (150-450); RBC Distribution Width CV 12.6 % (11.6-14.6); Red Blood Count 4.39 M/mm3 (4.2-5.4); White Blood Count 8.3 K/mm3 (4.4-11.0)
[2024-06-12 08:06] LABS: Erythrocyte Sedimentation Rate 18 mm/hr (0-30)
[2024-06-12 08:24] LABS: Cholesterol 157 mg/dL (200); High Density Lipoprotein 60 mg/dL; Triglycerides 78 mg/dL; Very Low Density Lipoprotein 16 mg/dL (5-40)
[2024-06-12 09:55] LABS: AST(SGOT) 8 U/L (15-37); Alanine Aminotransfer ALT/SGPT 17 U/L (13-56); Albumin, Serum 3.9 g/dL (3.2-5.0); Alkaline Phosphatase 51 U/L (45-117); Anion Gap 6 (5-15); BUN 11 mg/dL (7-18); BUN/Creat Ratio 14.8 RATIO (10-20); Calcium,Total 8.7 mg/dL (8.5-10.1); Chloride 106 mmol/L (98-107); Creatinine, Serum 0.74 mg/dL (0.55-1.02); EST Glomerular Filtration Rate 96 mL/min (>60); Est Glom Filt Rate - Afr Amer 117 mL/min (>60); Globulin 4.1 g/dL (2.2-4.2); Glucose 107 mg/dL (74-106); Potassium 3.9 mmol/L (3.5-5.1); Rheumatoid Factor < 10.0 IU/mL (<15); Sodium Level 136 mmol/L (136-145)
[2024-06-14 08:22] LABS: Vitamin D,25 Hydroxy 28.9 ng/mL
[2024-06-14 11:34] LABS: T4 Free Direct 0.89 ng/dL (0.76-1.46)
[2024-06-14 15:07] LABS: ANTINUCLEAR ANTIBODIES DIRECT Positive (Negative)
[2024-06-16 08:13] LABS: Thyroid Peroxidase AB > 600 IU/mL (0-34)
== END | disposition home or self-care (01) ==
LOC: LAB 07:20
PROVIDERS: PCP Family Medicine; Referring Provider Nurse Practitioner; Visit Provider Nurse Practitioner
DX: T78.3XXD Angioneurotic edema, subsequent encounter (principal); E55.9 Vitamin D deficiency, unspecified; E07.9 Disorder of thyroid, unspecified; R79.89 Other specified abnormal findings of blood chemistry; X58.XXXD Exposure to other specified factors, subsequent encounter
CPT/HCPCS: 36415; 80053; 80061; 82306; 83520; 84439; 84443; 85025; 85652; 86038; 86376; 86431

== ENCOUNTER → 2024-08-20 | Outpatient (CLI) | payer OTHER, SELFPAY ==
[2024-08-20 12:59] LABS: Free T3 2.5 pg/mL (2.18-3.98); T4 Free Direct 0.99 ng/dL (0.76-1.46)
[2024-08-21 04:07] LABS: Thyroid Peroxidase AB > 600 IU/mL (0-34)
== END | disposition home or self-care (01) ==
LOC: LAB 11:43
PROVIDERS: PCP Family Medicine; Referring Provider Family Medicine; Visit Provider Family Medicine
DX: E06.3 Autoimmune thyroiditis (principal)
CPT/HCPCS: 36415; 84439; 84443; 84481; 86376

== ENCOUNTER → 2024-10-18 | Outpatient (CLI) | payer OTHER, SELFPAY | END | disposition home or self-care (01) | LOC: LAB 12:16 | PROVIDERS: PCP Family Medicine; Referring Provider Family Medicine; Visit Provider Family Medicine | DX: E06.3 Autoimmune thyroiditis (principal) | CPT/HCPCS: 36415; 84443 ==

== ENCOUNTER → 2024-12-08 | Outpatient (CLI) | payer OTHER, SELFPAY ==
[2024-12-10 04:07] LABS: Thyroid Peroxidase AB > 600 IU/mL (0-34)
== END | disposition home or self-care (01) ==
LOC: LAB 15:49
PROVIDERS: PCP Family Medicine; Referring Provider Family Medicine; Visit Provider Family Medicine
DX: E06.3 Autoimmune thyroiditis (principal)
CPT/HCPCS: 84439; 84443; 84481; 86376

== ENCOUNTER → 2025-04-02 | Outpatient (CLI) | payer OTHER, SELFPAY ==
--- OUTSIDE RECORDS SUMMARY | 2025-04-02 07:42 | XMS RPT_ITS | CCD ---
Author Organization [facility] Care Team Providers Care Product Distribution Specialist Name Role Phone Dr. Dave Bellamy Primary Care Provider [phone] Dr. Dave Bellamy Referring Provider Dr. Araseli Rock Attending Provider [phone] Dr. Dave Bellamy Primary Care Provider [phone] Dr. Dave Bellamy Referring Provider Dr. Araseli Rock Attending Provider [phone] Dr. Faina Stokes Attending Provider ROMAINE James Attending Provider Dr. Dave Bellamy Primary Care Provider [phone] Dr. Dave Bellamy Referring Provider Dr. Araseli Rock Attending Provider FLORECITA BELLAMY Primary Care Unavailabl e MARIA ALEJANDRA HECTOR F Attending Unavailable FAINA STOKES Referring Unavailabl e FLORECITA BELLAMY Primary Care Unavailabl e MARIA ALEJANDRA HECTOR F Attending Unavailable FAINA STOKES Referring Unavailshine e SINTIA MENDOZA Attending Unavailable FLORECITA BELLAMY Primary Care UnavailFAINA Ross Referring Unavailabl e FLORECITA BELLAMY Primary Care Unavailabl e LISA GAMBLE Attending Unavailable FAINA STOKES Referring Unavailabl e FLORECITA BELLAMY Primary Care Unavailabl e KRUNAL, MARIA ALEJANDRA F Attending Unavailable FAINA STOKES Referring Unavailabl e RANNEY, CHRISTOPHER B Primary Care Unavailabl e BRISA TORRESCHARAN P Attending Unavailable FAINA STOKES Referring UnavailDr. Dave Tracey Primary Care Provider Dr. Dave Bellamy Referring Provider Dr. Faina Stokes Attending Provider [phone] ROMAINE James Referring Provider [phone] ROMAINE James Other Provider [phone] Dr. Faina Stokes Other Provider [phone] Faina Stokes Admit Provider [phone] Faina Stokes Referring Provider [phone] Mia OLGUIN, Dr. Martinez Primary Care Provider Mia OLGUIN, Dr. Martinez Attending Provider Mia OLGUIN, Dr. Martinez Referring Provider Candida Mclean MD Attending Provider [phone] Candida Mclean MD Referring Provider [phone] Florecita Bellamy Primary Care Unavailable RAFAL PAUL Referring Unavailable RAFAL PAUL Attending Unavailable Mia, Florecita Primary Care Unavailable [place] HOTEL STAFF MEMBER, Suzie Referring Unavailable Efe HOTEL STAFF MEMBER, Suzie Attending Unavailable Candida Mclean Referring Unavailable Candida Mclean Attending Unavailable [facility] Unavailable Rantamy, Christkarener Primary Care Unavailable Florecita Bellamy Referring Unavailable Florecita Bellamy Attending Unavailable [facility] Unavailable Rantamy, Christkarneer Referring Unavailable Ranney, Christopher Primary Care Unavailable Efe HOTEL STAFF MEMBER, Uszie Attending Unavailable Mia, Christopher Primary Care Unavailable Florecita Bellamy Referring Unavailable Florecita Bellamy Attending Unavailable Allergies Allergy Classification Reported Allergen(s) Allergy Type Date of Onset Reaction(s) Facility (9 sources) Aspirin Drug Allergy 3 [facility] Comment on above: SOB, swelling, hives (9 sources) Caffeine Drug Allergy 3 [facility] Comment on above: SOB, swelling, hives (10 sources) cat dander; Translations: [cat dander] Allergy to substance 3 [facility] (10 sources) cigarette smoke; Translations: [cigarette smoke] Allergy to substance 3 Other [facility] Comment on above: SOB (9 sources) dog dander Allergy to substance 3 [facility] (10 sources) perfume; Translations: [perfume] Allergy to substance 3 Other [facility] Comment on above: SOB (10 sources) Seasonal Allergies: Uncoded; Translations: [Seasonal Allergies: Uncoded] Allergy to substance 3 [facility] (3 sources) cold Propensity to adverse reactions 3 [facility] (1 source) Aspirin Drug Allergy 4 [facility] (1 source) Caffeine Drug Allergy 4 [facility] (1 source) dog dander Drug allergy (disorder) 4 [facility] Medications Current Medications Medication Drug Class(es) Dates Sig (Normalized) Sig (Original) [id number] 200 actuat albuterol 0.09 mg/actuat metered dose inhaler (18 sources) beta2-Adrenergic Agonist Start: 01-12-2020 End: 01-12-2020 Albuterol Sulfate (Proair Hfa) 90 mcg/actuation HFA aerosol inhaler Active 2 NMA INHALATION EVERY 6 HOURS as needed for asthma January 12, 2020 12:00am Start: 01-12-2020 End: 01-12-2020 take 1 puff(s) by inhalation every six hours Albuterol Sulfate (Proair Hfa) 90 mcg/actuation HFA aerosol inhaler Active 2 PUFF INHALATION EVERY 6 HOURS January 12, 2020 12:00am Blood-Glucose Meter (4 sources) Start: 01-20-2023 Blood-Glucose Meter Active 0 .MEDSUPPLY 1 January 20, 2023 12:00am As directed- Test fasting and 2 hours after meals Pqqmpscswsh-Ahtisnmby-Qn lanter (9 sources) Anticholinergic, Corticosteroid, beta2-Adrenergic Agonist Start: 11-23-2021 Fluticasone-Umeclidi n-V ilanter (Trelegy Ellipta) 100-62.5-25 mcg blister with device Active 1 NMA INHALATION DAILY November 23, 2021 12:00am Start: 11-23-2021 Fluticasone-Um eclidin-Vilanter (Trelegy Ellipta) 100-62.5-25 mcg blister with device Active 1 INH INHALATION DAILY November 23, 2021 12:00am Start: 11-23-2021 Fluticasone-Um eclidin-Vilanter (Trelegy Ellipta) 100-62.5-25 mcg blister with device Active 1 INH INHALATION DAILY November 22, 2021 11:00pm lansoprazole 30 mg delayed release oral capsule (2 sources) Proton Pump Inhibitor Start: 09-16-2023 take 1 capsule by mouth once daily Lansoprazole 30 mg capsule,delayed release(DR/EC) Active 30 mg PO DAILY September 16, 2023 1:00am levocetirizine dihydrochloride 5 mg oral tablet (9 sources) Histamine-1 Receptor Antagonist Start: 11-23-2021 take 1 tablet by mouth once daily Levocetirizine (Xyzal) 5 mg tablet Active 5 mg PO DAILY November 23, 2021 12:00am Completed/Discontinued Medications Medication Drug Class(es) Dates Sig (Normalized) Sig (Original) acetaminophen 325 mg oral capsule (9 sources) Start: 08-25-2020 End: 2020 take 1 capsule by mouth once as needed Acetaminophen (Tylenol) 325 mg capsule Discontinued 325 mg PO ONCE as needed August 25, 2020 1:00am 2020 3:22pm acetaminophen 325 mg / oxyCODONE hydrochloride 5 mg oral tablet (9 sources) Opioid Agonist Start: 08-11-2020 End: 08-18-2020 Oxycodone-Acetamino phen 1 TABLET tablet Discontinued 1 - 2 {tbl} PO EVERY 6 HOURS NEEDED as needed for Pain 15 02August 11, 2020 August 17, 2020 1:00am August 18, 2020 1:03am Start: 08-11-2020 End: 08-18-2020 take 1 tablet by mouth every six hours as needed Oxycodone-Acetaminophen Discontinued 1 - 2 TABLET PO EVERY 6 HOURS NEEDED 15 02August 11, 2020 August 18, 2020 1:03am amoxicillin 500 mg oral capsule (2 sources) Penicillin-class Antibacterial Start: 09-16-2023 End: 09-26-2023 take 1 capsule by mouth three times daily Amoxicillin 500 mg capsule Discontinued 500 mg PO THREE TIMES A DAY 30 September 16, 2023 1:00am September 25, 2023 1:00am September 26, 2023 1:05am Blood Pressure Monitor (14 sources) Start: 08-11-2020 End: 08-25-2020 Blood Pressure Monitor Discontinued 0 .Route .MEDSUPPLY August 11, 2020 1:35am August 25, 2020 2:16pm call the office if BP greater than 140/90. Start: 08-11-2020 End: 08-25-2020 Blood Pressure Monitor Disco ntinued 0 .Route .MEDSUPPLY August 11, 2020 12:35am August 25, 2020 1:16pm call the office if BP greater than 140/90. Start: 08-10-2020 End: 08-11-2020 Blood Pressure Monitor Disco ntinued 0 .ROUTE .MEDSUPPLY August 10, 2020 1:00am August 11, 2020 1:35am call the office if BP greater than 140/90. Start: 08-10-2020 End: 08-11-2020 Blood Pressure Monitor Disco ntinued 0 .ROUTE .MEDSUPPLY August 10, 2020 12:00am August 11, 2020 12:35am call the office if BP greater than 140/90. Blood Pressure Monitor 1 EACH kit (2 sources) Start: 08-11-2020 End: 08-25-2020 Blood Pressure Monitor 1 EACH kit Discontinued 0 .Route .MEDSUPPLY August 11, 2020 1:35am August 25, 2020 2:16pm call the office if BP greater than 140/90. Blood Pressure Monitor kit (2 sources) Start: 08-10-2020 End: 08-11-2020 Blood Pressure Monitor kit Discontinued 0 .ROUTE .MEDSUPPLY August 10, 2020 1:00am August 11, 2020 1:35am call the office if BP greater than 140/90. Blood-Glucose Meter misc (2 sources) Start: 01-20-2023 End: 05-12-2024 Blood-Glucose Meter misc Discontinued 0 .MEDSUPPLY January 20, 2023 12:00am May 12, 2024 1:25pm As directed- Test fasting and 2 hours after meals cephalexin 500 mg oral capsule (20 sources) Cephalosporin Antibacterial Start: 06-07-2021 End: 11-23-2021 take 1 capsule by mouth three times daily Cephalexin 500 mg capsule Discontinued 500 mg PO THREE TIMES A DAY June 07, 2021 12:00am November 23, 2021 2:34pm Start: 07-27-2020 End: 08-10-2020 take 1 capsule by mouth three times daily Cephalexin 500 MG capsule Discontinued 500 mg PO THREE TIMES A DAY August 02, 2020 11:03am August 10, 2020 11:37am space evenly during waking hours cyclobenzaprine hydrochloride 10 mg oral tablet (9 sources) Muscle Relaxant Start: 07-27-2020 End: 08-25-2020 take 1 tablet by mouth three times daily as needed for muscle spasms Cyclobenzaprine 10 mg tablet Discontinued 10 mg PO THREE TIMES A DAY as needed for muscle spasm July 27, 2020 1:00am August 25, 2020 2:16pm famotidine 20 mg oral tablet (2 sources) Histamine-2 Receptor Antagonist Start: 09-16-2023 End: 05-12-2024 take 1 tablet by mouth once daily before mealtime Famotidine (Pepcid Ac) 20 mg tablet Discontinued 20 mg PO DAILY September 16, 2023 1:00am May 12, 2024 1:25pm Fluticasone Propion-Salmeterol (9 sources) Corticosteroid, beta2-Adrenergic Agonist Start: 2020 End: 11-23-2021 Fluticasone Propion-Salmeterol (Advair Diskus) 250-50 mcg/dose blister with device Discontinued 1 NMA INHALATION TWICE A DAY 2020 1:00am November 23, 2021 2:34pm Start: 2020 End: 11-23-2021 Fluticasone Propion-Salmeter ol (Advair Diskus) 250-50 mcg/dose blister with device Discontinued 1 INH INHALATION TWICE A DAY 2020 1:00am November 23, 2021 2:34pm Start: 2020 End: 11-23-2021 Fluticasone Propion-Salmeter ol (Advair Diskus) 250-50 mcg/dose blister with device Discontinued 1 INH INHALATION TWICE A DAY 2020 12:00am November 23, 2021 1:34pm montelukast 10 mg oral tablet (9 sources) Leukotriene Receptor Antagonist Start: 11-23-2021 End: 09-16-2023 take 1 tablet by mouth once daily Montelukast (Singulair) 10 mg tablet Discontinued 10 mg PO DAILY November 23, 2021 12:00am September 16, 2023 10:01am Multivit 23-Wgdn-Uhmndf 1-Dha (Pnv-Dha) 27 mg iron-1 mg -300 mg capsule (9 sources) Start: 01-12-2020 End: 11-23-2021 Multivit 27-Ylpn-Gkccva 1-Dha (Pnv-Dha) 27 mg iron-1 mg -300 mg capsule Discontinued 1 NMA PO DAILY January 12, 2020 12:00am November 23, 2021 2:34pm Start: 01-12-2020 End: 11-23-2021 take 1 capsule by mouth once daily Multivit 17-Hfol-Atzkgw 1-Dha (Pnv-Dha) 27 mg iron-1 mg -300 mg capsule Discontinued 1 CAP PO DAILY January 12, 2020 12:00am November 23, 2021 2:34pm Start: 01-12-2020 End: 11-23-2021 take 1 capsule by mouth once daily Multivit 06-Asij-Uaetzs 1-Dha (Pnv-Dha) 27 mg iron-1 mg -300 mg capsule Discontinued 1 CAP PO DAILY January 11, 2020 11:00pm November 23, 2021 1:34pm naproxen 500 mg oral tablet (3 sources) Nonsteroidal Anti-inflammatory Drug Start: 03-30-2023 End: 09-16-2023 take 1 tablet by mouth every eight hours Naproxen 500 mg Tablet Discontinued 500 mg PO Q8H 0 March 30, 2023 12:00am September 16, 2023 10:01am nitrofurantoin, macrocrystals 25 mg / nitrofurantoin, monohydrate 75 mg oral capsule (9 sources) Nitrofuran Antibacterial Start: 01-15-2020 End: 01-22-2020 take 1 capsule by mouth every twelve hours at mealtime Nitrofurantoin Monohyd/M-Cryst (Macrobid) 100 mg capsule Discontinued 1 NMA PO Q12H 14 7 January 15, 2020 12:00am January 21, 2020 12:00am January 22, 2020 12:02am administer with a meal/food; swallow whole; do not open, crush, dissolve , or chew omeprazole 40 mg delayed release oral capsule (9 sources) Proton Pump Inhibitor Start: 11-23-2021 End: 09-16-2023 take 1 capsule by mouth once daily Omeprazole 40 mg capsule,delayed release(DR/EC) Discontinued 40 mg PO DAILY November 23, 2021 12:00am September 16, 2023 10:01am oxyCODONE hydrochloride 5 mg oral tablet (3 sources) Opioid Agonist Start: 03-30-2023 End: 04-09-2023 take 5-10 mg by mouth every four hours as needed for pain Oxycodone 5 mg Tablet Discontinued 5 - 10 mg PO EVERY 4 HOURS NEEDED as needed for Pain Score 4-10 14 5 March 30, 2023 April 09, 2023 10:30am promethazine hydrochloride 12.5 mg oral tablet (9 sources) Phenothiazine Start: 07-27-2020 End: 08-25-2020 take 1 tablet by mouth every six hours as needed for nausea Promethazine 12.5 mg tablet Discontinued 12.5 mg PO EVERY 6 HOURS as needed for nausea and vomiting 120 July 27, 2020 1:00am August 25, 2020 2:16pm 1-2 every 6 hours PRN nausea Problems Active Problems Problem Classification Problem Date Documented Da te Episodic/Chronic Diabetes or abnormal glucose tolerance complicating ; childbirth; or the puerperium (20 sources) Impaired glucose tolerance in ; Translations: [Abnormal glucose complicating ] 10-02-2022 Episodic Comment on above: Passed-3HR BS fasting & 2hr pos t meals, quality 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 Will do glucose check bid X 1 week pp and will call results Esophageal disorders (20 sources) Eosinophilic esophagitis; Translations: [Eosinophilic esophagitis] 11-23-2021 Chronic Hemorrhage during ; abruptio placenta; placenta previa (14 sources) Low lying placenta; Translations: [Low lying placenta NOS or without hemorrhage, unspecified trimester] 12-04-2022 Episodic Comment on above: Twin A placenta 1.6c m from os. rescan at 28 weeks Hypertension complicating ; childbirth and the puerperium (9 sources) Transient hypertension of ; Translations: [Gestational [-induced] hypertension without significant proteinuria, third trimester] 08-11-2020 Episodic Comment on above: Multiple BPs with di astolics in 90s 08/02. Asymptomatic. Sent to triage for labs and BP monitoring. Immunizations and screening for infectious disease (9 sources) Influenza vaccination given; Translations: [Encounter for immunization] 09-16-2022 Episodic Comment on above: 04/07/2020 SC Malposition; malpresentation (9 sources) Breech presentation; Translations: [Maternal care for breech presentation, not applicable or unspecified] 08-11-2020 Episodic Other complications of ; puerperium affecting management of mother (3 sources) Deliveries by ; Translations: [Encounter for delivery without indication] 03-28-2023 Episodic Comment on above: SM RLTCS twins 37 IU GR GDMA1 alberto hurd girls Other complications of ; puerperium affecting management of mother (1 source) Encounter for delivery without indication; Translations: [ delivery, without mention of indication, delivered, with or without mention of antepartum condition] 03-31-2023 Episodic Other complications of (18 sources) Maternal obesity complicating , childbirth and the puerperium, antepartum; Translations: [Obesity complicating , unspecified trimester] 09-25-2022 Chronic Comment on above: BMI 34- nl gct at NO B, encouraged healthy weight gain Other complications of (20 sources) Obesity complicating , unspecified trimester; Translations: [Obesity complicating , childbirth, or the puerperium, unspecified as to episode of care or not applicable] 09-25-2022 Chronic Other complications of (18 sources) High risk ; Translations: [Supervision of high risk , unspecified, unspecified trimester] 09-16-2022 Episodic Comment on above: PRR , BANG 04/18/ 3, alberto Mohr, Anthony PRR BANG 1 boy:Onur Spouse: Anthony Other complications of (9 sources) Asthma in ; Translations: [Diseases of the respiratory system complicating , unspecified trimester] 09-16-2022 Episodic Comment on above: Trelegy Ellipta, Pro Air, Singulair, zyzol Other complications of (9 sources) Urinary tract infection in ; Translations: [Unspecified infection of urinary tract in , first trimester] 08-11-2020 Episodic Comment on above: 01/16:macrobid. Repea t culture neg Other complications of (20 sources) Diseases of the respiratory system complicating , unspecified trimester; Translations: [Other current conditions classifiable elsewhere of mother, antepartum condition or complication] 09-25-2022 Episodic Other complications of (20 sources) Supervision of high risk , unspecified, unspecified trimester; Translations: [Supervision of unspecified high-risk ] 09-25-2022 Episodic Other and delivery including normal (20 sources) Dichorionic diamniotic twin ; Translations: [Twin , dichorionic/diamniot ic, first trimester] 09-25-2022 Episodic Comment on above: weekly bpps weekly a fter 34 weeks, growth q4 weeksAt 32 weeks A-43%, B-31% appropriate concordant growth at 8.5% declines genetic, ca rrier and NTD. Anatomy normal discussed genetic & carrier testing, anatomy nl (additional views needed) Other upper respiratory disease (9 sources) Seasonal allergy; Translations: [Other seasonal allergic rhinitis] 09-16-2022 Chronic Other upper respiratory disease (20 sources) Other seasonal allergic rhinitis; Translations: [Allergic rhinitis, cause unspecified] 09-25-2022 Chronic Other upper respiratory infections (9 sources) Acute pharyngitis; Translations: [Acute pharyngitis, unspecified] 09-16-2022 Episodic Polyhydramnios and other problems of amniotic cavity (16 sources) Polyhydramnios; Translations: [Polyhydramnios, unspecified trimester, not applicable or unspecified] 01-24-2023 Episodic Residual codes; unclassified (9 sources) Gestation period, 39 weeks; Translations: [39 weeks gestation of ] 08-11-2020 Episodic Comment on above: covid test ordered negative Residual codes; unclassified (20 sources) History of uterine scar from previous surgery; Translations: [Other postprocedural status] 09-25-2022 Episodic Short gestation; low weight; and growth retardation (8 sources) growth restriction; Translations: [ growth restriction] 03-20-2023 Episodic Comment on above: B measuring 6%ile EF W 2044g, twice weekly testing and deliver 37 weeks. Thyroid disorders (1 source) Autoimmune thyroiditis; Translations: [Autoimmune thyroiditis] Onset: 12-13-2024 Chronic Urinary tract infections (9 sources) Urinary tract infectious disease; Translations: [Urinary tract infection, site not specified] 09-16-2022 Episodic Past or Other Problems Problem Classification Problem Date Documented Date Episodic/Chronic Other injuries and conditions due to external causes (1 source) Angioneurotic edema, subsequent encounter; Translations: [Angioneurotic edema, subsequent encounter] Onset: 07-07-2024 Episodic Other screening for suspected conditions (not mental disorders or infectious disease) (1 source) Encounter for screening for malignant neoplasm of cervix; Translations: [Encounter for screening for malignant neoplasm of cervix] Onset: 06-04-2024 Episodic Unclassified (7 sources) Normal labor; Translations: [Active labor at term] 08-11-2020 Results Test Name Value Interpretation Reference Range Facility Thyroid Peroxidase ABon 05-0 THYR PEROX AB > 600 High 0-34 [facility] Comment on above: Result Comment: Perf ormed at: CB - [facility] [address] [id number] Respiratory Therapy Assistant: Onur Torres PhD, Phone: [phone] Performed By: #### Pattie [id number] #### [facility] [address] [place], [address] Free T3on 12-08-2024 Free T3 [Mass/Vol] 3.0 pg/mL Normal 2.18-3.98 [facility] Comment on above: Order Comment: Order Date: 10/19/24Order Info: 3051-0 - [id number] Info: 3016-3 - TSHOrder Info: 3024-7 - T4F Performed By: #### L [id number], [id number], L506.0400 ####[facility] [address] [place], [place], [id number] Free I8Rpzrlnl By: Candida adamson on 12-08-2024 Free T3 [Mass/Vol] 3.0 pg/mL 2.18-3.98 [facility] Serum or plasma thyroperoxid ase antibody assay (units/volume)Ordered By: Candida Mclean on 12-08-2024 TPO Ab Qn [IU]/mL High 0-34 [facility] Comment on above: Performed at: [address] [id number] Director: Onur Torres PhD, Phone: [phone] T4 Free Directon 12-08-2024 T4 FREE DIRECT 1.30 ng/dL Normal 0.76-1.46 [facility] Comment on above: Order Comment: Order Date: 10/19/24Order Info: 3051-0 - [id number] Info: 3016-3 - TSHOrder Info: 3027 - T4F Performed By: #### L [id number], [id number], L506.0400 ####[facility] [address] [place], [place], [id number] T4 freeOrdered By: Candida adamson on 12-08-2024 Free T4 [Mass/Vol] 1.30 ng/dL 0.76-1.46 [facility] TSH DL <= 0.005 mIU/L QnOrde red By: aCndida Mclean on 12-08-2024 TSH Qn 3.430 uIU/mL 0.300-4.200 [facility] Thyroid Stim Hormone (TSH)on 12-08-2024 TSH 3.430 uIU/mL Normal 0.300-4.200 [facility] Comment on above: Order Comment: Order Date: 10/19/24Order Info: 3051-0 - [id number] Info: 3016-3 - TSHOrder Info: 3024-7 - T4F Performed By: #### L [id number], [id number], L506.0400 ####[facility] [address] [place], [place], [id number] TSH DL <= 0.005 mIU/L QnOrde red By: Florecita Bellamy on 10-18-2024 Thyroid Stimulating Hormone (TSH) 4.420 uIU/mL High 0.300-4.200 [facility] TSH Qn 4.420 uIU/mL High 0.300-4.200 [facility] Thyroid Stim Hormone (TSH)on 10-18-2024 TSH 4.420 uIU/mL High 0.300-4.200 [facility] Comment on above: Order Comment: Order Date: 08/25/24 Order Info: 3016-3 - TSH Performed By: #### L [id number] #### [facility] [address] [place], [address] Thyroid Peroxidase ABon 08-04 THYR PEROX AB > 600 High 0-34 [facility] Comment on above: Result Comment: Perf ormed at: - [facility] [address] [id number] Respiratory Therapy Assistant: Onur Torres PhD, Phone: [phone] Performed By: #### L [id number] #### [facility] [place], [place], [id number] Direct serum free thyroxine (FT4) measurementOrdered By: Florecita Bellamy on 08-20-2024 Free T4 [Mass/Vol] 0.99 ng/dL 0.76-1.46 [facility] Free T3on 08-20-2024 Free T3 [Mass/Vol] 2.5 pg/mL Normal 2.18-3.98 [facility] Comment on above: Order Comment: Order Date: 08/25/24 Order Info: 3016-3 - TSH Performed By: #### L [id number] #### [facility] [address] [place], [place], [id number] Free O3Pudqsbw By: Bill Bellamy on 08-20-2024 Free T3 [Mass/Vol] 2.5 pg/mL 2.18-3.98 [facility] Free Triiodothyronine (T3) pg/dL 2.5 pg/mL 2.18-3.98 [facility] Serum or plasma thyroid stim ulating hormone (TSH) measurement (units/volume)Ordered By: Florecita Bellamy on 08-20-2024 TSH Qn 7.030 uIU/mL High 0.358-3.740 [facility] Serum or plasma thyroperoxid ase antibody assay (units/volume)Ordered By: Florecita Bellamy on 08-20-2024 TPO Ab Qn [IU]/mL High 0-34 [facility] Comment on above: Performed at: [facility] [address] [id number] Director: Onur Torres PhD, Phone: [phone] T4 Free Directon 08-20-2024 T4 FREE DIRECT 0.99 ng/dL Normal 0.76-1.46 [facility] Comment on above: Order Comment: Order Date: 07/07/24Order Info: 3051-0 - [id number] Info: 3016-3 - TSHOrder Info: 3024-7 - T4F Performed By: #### L 506.0400, [id number], L501.9520 ####[facility] [address] [place], [place], [id number] TPO Ab QnOrdered By: Delvin Bellamy on 08-20-2024 Thyroid Peroxidase Antibodies > 600 IU/mL High 0-34 [facility] Comment on above: Performed at: [facility] [id number] Director: Onur Torres PhD, Phone: [phone] TSH QnOrdered By: Dave Bellamy on 08-20-2024 Thyroid Stimulating Hormone (TSH) 7.030 uIU/mL High 0.358-3.740 [facility] Thyroid Stim Hormone (TSH)on 08-20-2024 TSH 7.030 uIU/mL High 0.358-3.740 [facility] Comment on above: Order Comment: Order Date: 08/25/24 Order Info: 3016-3 - TSH Performed By: #### L 501.9520 #### [facility] [address] [place], [place], [address] Thyroid Peroxidase ABon 06-04 THYR PEROX AB > 600 High 0-34 [facility] Comment on above: Order Comment: Order Date: 08/25/24 Order Info: 3016-3 - TSH Result Comment: Perf ormed at: [facility] [address] [id number] Respiratory Therapy Assistant: Radha Hamlin MD, Phone: [phone] Performed at: [address] [id number] Respiratory Therapy Assistant: Onur Torres PhD, Phone: [phone] Performed By: #### L 501.9520 #### [facility] [address] [place], [place], [id number] Tryptaseon 06-16-2024 TRYPTASE 5.5 ug/L Normal 2.2-13.2 [facility] Comment on above: Order Comment: Order Date: 08/25/24 Order Info: 3016-3 - TSH Performed By: #### L 501.9520 #### [facility] [address] [place], [place], [address] ANTINUCLEAR ANTIBODIES DIREC Ton 06-14-2024 JEANNIE,DIRECT Positive Abnormal Negative [facility] Comment on above: Order Comment: Order Date: 08/25/24 Order Info: 3016-3 - TSH Result Comment: Perf ormed at: [address] [id number] Respiratory Therapy Assistant: Onur Torres PhD, Phone: [phone] Performed By: #### L 501.9520 #### [facility] [address] [place], [place], [address] T4 Free Directon 06-14-2024 T4 FREE DIRECT 0.89 ng/dL Normal 0.76-1.46 [facility] Comment on above: Order Comment: Order Date: 08/25/24 Order Info: 3016-3 - TSH Performed By: #### L 501.9520 #### [facility] [address] [place], [address] Vitamin D,25 Hydroxyon 06-14 Vitamin D 25-OH 28.9 ng/mL Normal [facility] Comment on above: Order Comment: Order Date: 08/25/24 Order Info: 3016-3 - TSH Result Comment: Sunni min D 25(OH) Status Range Deficiency <20 ng/mL (50nmol/L) Insufficiency 20 - 30 ng/mL (50 - 75 nmol/L) Sufficiency 30 - 100 ng/mL (75 - 250 nmol/L) Toxicity >100 ng/mL (>250 nmol/L) Performed By: #### L 501.9520 #### [facility] [address] [place], [address] CBC W/Diff, Automatedon 11- Absolute Lymph 2.55 X10 3/uL Normal 0.83-4.51 [facility] Comment on above: Order Comment: CC: Hiral BELLAMY Performed By: #### L 501.9520, L500.4050, L101.9900, L506.1000, L506.0400, L100.0100, L3300.6900, L3400.5105, L505.7010, L3100.5475 #### [facility] [address] [place], [address] Absolute Neut 4.9 X10 3/uL Normal 2.0-7.7 [facility] Comment on above: Order Comment: CC: Hiral BELLAMY Performed By: #### L 501.9520, L500.4050, L101.9900, L506.1000, L506.0400, L100.0100, L3300.6900, L3400.5105, L505.7010, L3100.5475 #### [facility] [address] [place], [address] Basophils/100 WBC (Bld) 0.4 % Normal 0-1 [facility] Comment on above: Order Comment: CC: Hiral BELLAMY Performed By: #### L 501.9520, L500.4050, L101.9900, L506.1000, L506.0400, L100.0100, L3300.6900, L3400.5105, L505.7010, L3100.5475 #### [facility] [address] [place], [address] Eosinophils/100 WBC (Bld) 3.2 % Normal 0-5 [facility] Comment on above: Order Comment: CC: Hiral BELLAMY Performed By: #### L 501.9520, L500.4050, L101.9900, L506.1000, L506.0400, L100.0100, L3300.6900, L3400.5105, L505.7010, L3100.5475 #### [facility] [address] [place], [address] Erythrocyte distribution width (RBC) [Ratio] 12.6 % Normal 11.6-14.6 [facility] Comment on above: Order Comment: CC: Hiral BELLAMY Performed By: #### L 501.9520, L500.4050, L101.9900, L506.1000, L506.0400, L100.0100, L3300.6900, L3400.5105, L505.7010, L3100.5475 #### [facility] [address] [place], [address] Hematocrit (Bld) [Volume fraction] 39.2 % Normal 37-47 [facility] Comment on above: Order Comment: CC: Hiral BELLAMY Performed By: #### L 501.9520, L500.4050, L101.9900, L506.1000, L506.0400, L100.0100, L3300.6900, L3400.5105, L505.7010, L3100.5475 #### [facility] [address] [place], [address] Hemoglobin (Bld) [Mass/Vol] 13.1 g/dL Normal 12.0-15.0 [facility] Comment on above: Order Comment: CC: Hiral BELLAMY Performed By: #### L 501.9520, L500.4050, L101.9900, L506.1000, L506.0400, L100.0100, L3300.6900, L3400.5105, L505.7010, L3100.5475 #### [facility] [address] [place], [address] IG% 0.400 Normal 0.0-0.9 [facility] Comment on above: Order Comment: CC: Hiral BELLAMY Result Comment: IG% - Immature Granulocytes (promyelocytes, myelocytes and metamyelocytes) > 1% indicates that a LEFT SHIFT is Present. Performed By: #### L 501.9520, L500.4050, L101.9900, L506.1000, L506.0400, L100.0100, L3300.6900, L3400.5105, L505.7010, L3100.5475 #### [facility] [address] [place], [address] Lymphocytes/100 WBC (Bld) 30.6 % Normal 19-41 [facility] Comment on above: Order Comment: CC: Hiral BELLAMY Performed By: #### L 501.9520, L500.4050, L101.9900, L506.1000, L506.0400, L100.0100, L3300.6900, L3400.5105, L505.7010, L3100.5475 #### [facility] [address] [place], [address] MCH (RBC) [Entitic mass] 29.8 pg Normal 27.0-32.0 [facility] Comment on above: Order Comment: CC: Hiral BELLAMY Performed By: #### L 501.9520, L500.4050, L101.9900, L506.1000, L506.0400, L100.0100, L3300.6900, L3400.5105, L505.7010, L3100.5475 #### [facility] [address] [place], [address] MCHC (RBC) [Mass/Vol] 33.4 g/dL Normal 32-36 [facility] Comment on above: Order Comment: CC: Hiral BELLAMY Performed By: #### L 501.9520, L500.4050, L101.9900, L506.1000, L506.0400, L100.0100, L3300.6900, L3400.5105, L505.7010, L3100.5475 #### [facility] [address] [place], [address] MCV (RBC) [Entitic vol] 89.3 fL Normal 81-99 [facility] Comment on above: Order Comment: CC: Hiral BELLAMY Performed By: #### L 501.9520, L500.4050, L101.9900, L506.1000, L506.0400, L100.0100, L3300.6900, L3400.5105, L505.7010, L3100.5475 #### [facility] [address] [place], [address] Monocytes/100 WBC (Bld) 6.7 % Normal 0-10 [facility] Comment on above: Order Comment: CC: Hiral BLELAMY Performed By: #### L 501.9520, L500.4050, L101.9900, L506.1000, L506.0400, L100.0100, L3300.6900, L3400.5105, L505.7010, L3100.5475 #### [facility] [address] [place], [address] Neutrophils/100 WBC (Bld) 58.7 % Normal 47-70 [facility] Comment on above: Order Comment: CC: Hiral BELLAMY Performed By: #### L 501.9520, L500.4050, L101.9900, L506.1000, L506.0400, L100.0100, L3300.6900, L3400.5105, L505.7010, L3100.5475 #### [facility] [address] [place], [address] Nucleated RBC (Bld) [#/Vol] 0 10*3/uL Normal 0-5 [facility] Comment on above: Order Comment: CC: Hiral BELLAMY Performed By: #### L 501.9520, L500.4050, L101.9900, L506.1000, L506.0400, L100.0100, L3300.6900, L3400.5105, L505.7010, L3100.5475 #### [facility] [address] [place], [address] Platelet mean volume (Bld) [Entitic vol] 11.2 fL Normal 6.2-12.0 [facility] Comment on above: Order Comment: CC: Hiral BELLAMY Performed By: #### L 501.9520, L500.4050, L101.9900, L506.1000, L506.0400, L100.0100, L3300.6900, L3400.5105, L505.7010, L3100.5475 #### [facility] [address] [place], [address] Platelets (Bld) [#/Vol] 238 10*3/uL Normal 150-450 [facility] Comment on above: Order Comment: CC: Hiral BELLAMY Performed By: #### L 501.9520, L500.4050, L101.9900, L506.1000, L506.0400, L100.0100, L3300.6900, L3400.5105, L505.7010, L3100.5475 #### [facility] [address] [place], [address] RBC (Bld) [#/Vol] 4.39 10*6/uL Normal 4.2-5.4 [facility] Comment on above: Order Comment: CC: Hiral BELLAMY Performed By: #### L 501.9520, L500.4050, L101.9900, L506.1000, L506.0400, L100.0100, L3300.6900, L3400.5105, L505.7010, L3100.5475 #### [facility] [address] [place], [address] RDW SD 41.0 fl Normal 35.1-43.9 [facility] Comment on above: Order Comment: CC: Hiral BELLAMY Performed By: #### L 501.9520, L500.4050, L101.9900, L506.1000, L506.0400, L100.0100, L3300.6900, L3400.5105, L505.7010, L3100.5475 #### [facility] [address] [place], [address] WBC (Bld) [#/Vol] 8.3 10*3/uL Normal 4.4-11.0 [facility] Comment on above: Order Comment: CC: Hiral BELLAMY Performed By: #### L 501.9520, L500.4050, L101.9900, L506.1000, L506.0400, L100.0100, L3300.6900, L3400.5105, L505.7010, L3100.5475 #### [facility] [address] [place], [address] CBC-Complete Blood Cnt No Di ffon 06-12-2024 HCT Normal 37-47 [facility] Comment on above: Order Comment: Order Date: 06/02/24 Order Info: [id number] - CBC Order Info: [id number] - SED Result Comment: DUP ORDERS Performed By: #### L 101.9900, L100.0500, L500.4100 #### [facility] [address] [place], [address] HGB Normal 12.0-15.0 [facility] Comment on above: Order Comment: Order Date: 06/02/24 Order Info: [id number] - CBC Order Info: [id number] - SED Result Comment: DUP ORDERS Performed By: #### L 101.9900, L100.0500, L500.4100 #### [facility] [address] [place], [address] MCH Normal 27.0-32.0 [facility] Comment on above: Order Comment: Order Date: 06/02/24 Order Info: [id number] - CBC Order Info: [id number] - SED Result Comment: DUP ORDERS Performed By: #### L 101.9900, L100.0500, L500.4100 #### [facility] [address] [place], [address] MCHC Normal 32-36 [facility] Comment on above: Order Comment: Order Date: 06/02/24 Order Info: [id number] - CBC Order Info: [id number] - SED Result Comment: DUP ORDERS Performed By: #### L 101.9900, L100.0500, L500.4100 #### [facility] [address] [place], [address] MCV Normal 81-99 [facility] Comment on above: Order Comment: Order Date: 06/02/24 Order Info: [id number] - CBC Order Info: [id number] - SED Result Comment: DUP ORDERS Performed By: #### L 101.9900, L100.0500, L500.4100 #### [facility] [address] [place], [address] PLT Normal 150-450 [facility] Comment on above: Order Comment: Order Date: 06/02/24 Order Info: [id number] - CBC Order Info: - SED Result Comment: DUP ORDERS Performed By: #### L 101.9900, L100.0500, L500.4100 #### [facility] [address] [place], [address] RBC Normal 4.2-5.4 [facility] Comment on above: Order Comment: Order Date: 06/02/24 Order Info: [id number] - CBC Order Info: - SED Result Comment: DUP ORDERS Performed By: #### L 101.9900, L100.0500, L500.4100 #### [facility] [address] [place], [address] RDW CV Normal 11.6-14.6 [facility] Comment on above: Order Comment: Order Date: 06/02/24 Order Info: [id number] - CBC Order Info: - SED Result Comment: DUP ORDERS Performed By: #### L 101.9900, L100.0500, L500.4100 #### [facility] [address] [place], [address] RDW SD Normal 35.1-43.9 [facility] Comment on above: Order Comment: Order Date: 06/02/24 Order Info: [id number] - CBC Order Info: - SED Result Comment: DUP ORDERS Performed By: #### L 101.9900, L100.0500, L500.4100 #### [facility] [address] [place], [address] WBC Normal 4.4-11.0 [facility] Comment on above: Order Comment: Order Date: 06/02/24 Order Info: [id number] - CBC Order Info: - SED Result Comment: DUP ORDERS Performed By: #### L 101.9900, L100.0500, L500.4100 #### [facility] [address] [place], [address] Comprehensive Metabolic Prof ilon 11-09-2024 Albumin [Mass/Vol] 3.9 g/dL Normal 3.2-5.0 [facility] Comment on above: Order Comment: Order Date: 08/25/24 Order Info: 3016-3 - TSH Performed By: #### L 501.9520 #### [facility] [address] [place], [address] Albumin/Globulin [Mass ratio] 1.0 {ratio} Normal 0.9-2.4 [facility] Comment on above: Order Comment: Order Date: 08/25/24 Order Info: 3016-3 - TSH Performed By: #### L 501.9520 #### [facility] [address] [place], [address] ALK P 51 U/L Normal 45-117 [facility] Comment on above: Order Comment: Order Date: 08/25/24 Order Info: 3016-3 - TSH Performed By: #### L 501.9520 #### [facility] [address] [place], [address] ALT [Catalytic activity/Vol] 17 U/L Normal 13-56 [facility] Comment on above: Order Comment: Order Date: 08/25/24 Order Info: 3016-3 - TSH Performed By: #### L 501.9520 #### [facility] [address] [place], [address] AST [Catalytic activity/Vol] 8 U/L Low 15-37 [facility] Comment on above: Order Comment: Order Date: 08/25/24 Order Info: 3016-3 - TSH Performed By: #### L 501.9520 #### [facility] [address] [place], [address] Bilirubin [Mass/Vol] 0.30 mg/dL Normal 0.20-1.00 [facility] Comment on above: Order Comment: Order Date: 08/25/24 Order Info: 3016-3 - TSH Result Comment: For patients on eltrombopag therapy, use of Dimension [place] TBIL is not recommended. Performed By: #### L 501.9520 #### [facility] [address] [place], [address] BUN/CRE 14.8 RATIO Normal 10-20 [facility] Comment on above: Order Comment: Order Date: 08/25/24 Order Info: 3016-3 - TSH Performed By: #### L 501.9520 #### [facility] [address] [place], [address] CA,Total 8.7 mg/dL Normal 8.5-10.1 [facility] Comment on above: Order Comment: Order Date: 08/25/24 Order Info: 3016-3 - TSH Performed By: #### L 501.9520 #### [facility] [address] [place], [address] Chloride [Moles/Vol] 106 mmol/L Normal 98-107 [facility] Comment on above: Order Comment: Order Date: 08/25/24 Order Info: 3016-3 - TSH Performed By: #### L 501.9520 #### [facility] [address] [place], [address] CO2 [Moles/Vol] 24.0 mmol/L Normal 21.0-32.0 [facility] Comment on above: Order Comment: Order Date: 08/25/24 Order Info: 3016-3 - TSH Performed By: #### L 501.9520 #### [facility] [address] [place], [address] Creatinine [Mass/Vol] 0.74 mg/dL Normal 0.55-1.02 [facility] Comment on above: Order Comment: Order Date: 08/25/24 Order Info: 3016-3 - TSH Result Comment: The validity of the calculated GFR GFRAA in patients over 70 years has not been determined. Clinical correlation is essential. Performed By: #### L 501.9520 #### [facility] [address] [place], [address] EST GFR - AA 117 mL/min Normal >60 [facility] Comment on above: Order Comment: Order Date: 08/25/24 Order Info: 3016-3 - TSH Result Comment: Afri can Dominican GFR Calc Performed By: #### L 501.9520 #### [facility] [address] [place], [address] GAP 6 Normal 5-15 [facility] Comment on above: Order Comment: Order Date: 08/25/24 Order Info: 3015-3 - TSH Performed By: #### L 501.9520 #### [facility] [address] [place], [address] GFR/1.73 sq M.predicted among non-blacks MDRD (S/P/Bld) [Vol rate/Area] 96 mL/min/{1.73_m2} Normal >60 [facility] Comment on above: Order Comment: Order Date: 08/25/24 Order Info: 3015-3 - TSH Result Comment: Non- GFR Calc Performed By: #### L 501.9520 #### [facility] [address] [place], [address] Globulin (S) [Mass/Vol] 4.1 g/dL Normal 2.2-4.2 [facility] Comment on above: Order Comment: Order Date: 08/25/24 Order Info: 301-3 - TSH Performed By: #### L 501.9520 #### [facility] [address] [place], [place], [address] Glucose [Mass/Vol] 107 mg/dL High 74-106 [facility] Comment on above: Order Comment: Order Date: 08/25/24 Order Info: 3016-3 - TSH Result Comment: Fast ing Glucose result from 100 to 125 mg/dL suggests IMPAIRED HOMEOSTASIS per A.D.A. criteria. Performed By: #### L 501.9520 #### [facility] [address] [place], [address] Potassium [Moles/Vol] 3.9 mmol/L Normal 3.5-5.1 [facility] Comment on above: Order Comment: Order Date: 08/25/24 Order Info: 3016-3 - TSH Performed By: #### L 501.9520 #### [facility] [address] [place], [address] Sodium [Moles/Vol] 136 mmol/L Normal 136-145 [facility] Comment on above: Order Comment: Order Date: 08/25/24 Order Info: 3016-3 - TSH Performed By: #### L 501.9520 #### [facility] [address] [place], [address] T PROT 8.0 g/dL Normal 6.4-8.2 [facility] Comment on above: Order Comment: Order Date: 08/25/24 Order Info: 3016-3 - TSH Performed By: #### L 501.9520 #### [facility] [address] [place], [address] Urea nitrogen [Mass/Vol] 11 mg/dL Normal 7-18 [facility] Comment on above: Order Comment: Order Date: 08/25/24 Order Info: 3016-3 - TSH Performed By: #### L 501.9520 #### [facility] [address] [place], [address] Erythrocyte Sed Rateon 06-12 SED RATE 18 mm/hr Normal 0-30 [facility] Comment on above: Order Comment: CC: Hiral BELLAMY Performed By: #### L 501.9520, L500.4050, L101.9900, L506.1000, L506.0400, L100.0100, L3300.6900, L3400.5105, L505.7010, L3100.5475 #### [facility] [address] [place], [address] SED RATE Normal 0-30 [facility] Comment on above: Order Comment: Order Date: 06/02/24 Order Info: [id number] - CBC Order Info: [id number] - SED Result Comment: DUP ORDERS Performed By: #### L 101.9900, L100.0500, L500.4100 #### [facility] [address] [place], [address] Lipid Profileon 06-12-2024 Cholesterol [Mass/Vol] 157 mg/dL Normal 200 [facility] Comment on above: Order Comment: Order Date: 06/02/24 Order Info: 0786-1 - CMP Order Info: [id number] - LIPID Result Comment: <200 mg/dL Desirable 200-240 mg/dL Borderline >240 mg/dL High Risk Performed By: #### L 101.9900, L100.0500, L500.4100 #### [facility] [address] [place], [address] Cholesterol in HDL [Mass/Vol] 60 mg/dL Normal [facility] Comment on above: Order Comment: Order Date: 06/02/24 Order Info: 0786-1 - CMP Order Info: [id number] - LIPID Result Comment: The drugs N-Acetylcysteine and Metamizole may falsely depress this assay. Reference Range HDL <40 mg/dL Low HDL Cholesterol HDL >or= 60 mg/dL High HDL Cholesterol Performed By: #### L 101.9900, L100.0500, L500.4100 #### [facility] [address] [place], [address] Cholesterol in LDL [Mass/Vol] 81 mg/dL Normal 0-130 [facility] Comment on above: Order Comment: Order Date: 06/02/24 Order Info: 0786-1 - CMP Order Info: [id number] - LIPID Performed By: #### L 101.9900, L100.0500, L500.4100 #### [facility] [address] [place], [place], [address] Cholesterol in VLDL [Mass/Vol] 16 mg/dL Normal 5-40 [facility] Comment on above: Order Comment: Order Date: 06/02/24 Order Info: 0786-1 - CMP Order Info: [id number] - LIPID Performed By: #### L 101.9900, L100.0500, L500.4100 #### [facility] [address] [place], [address] Triglyceride [Mass/Vol] 78 mg/dL Normal [facility] Comment on above: Order Comment: Order Date: 06/02/24 Order Info: 0786-1 - CMP Order Info: [id number] - LIPID Result Comment: The drugs N-Acetylcysteine and Metamizole may falsely depress this assay. Serum Triglycerides Reference Interval Normal <150 mg/dL Borderline high 150 - 199 mg/dL High 200 - 499 mg/dL Very High > or = 500 mg/dL Performed By: #### L 101.9900, L100.0500, L500.4100 #### [facility] [address] [place], [address] Rheumatoid Factoron 06-12-20 RHEUMATOID FAC < 10.0 Normal <15 [facility] Comment on above: Order Comment: Order Date: 08/25/24 Order Info: 3016-3 - TSH Performed By: #### L 501.9520 #### [facility] [address] [place], [address] Thyroid Stim Hormone (TSH)on 06-12-2024 TSH 10.000 uIU/mL High 0.358-3.740 [facility] Comment on above: Order Comment: Order Date: 08/25/24 Order Info: 3016-3 - TSH Performed By: #### L 501.9520 #### [facility] [address] [place], [address] PAP IG HPV APTIMA 16/18,45on 05-19-2024 ADEQ Comment Normal . [facility] Comment on above: Order Comment: Speci men Comment: [id number] Specimen Comment: Source.............Cervix Specimen Comment: LMP / Prev Treat...[id number] Specimen Comment: No. of containers..01 ThinPrep Vial Result Comment: Sati sfactory for evaluation. Endocervical and/or squamous metaplastic cells (endocervical component) are present. Performed By: #### L 7400.0280 #### [facility] [address] [place], [place], [address] COMM . Normal . [facility] Comment on above: Order Comment: Speci men Comment: [id number] Specimen Comment: Source.............Cervix Specimen Comment: LMP / Prev Treat...[id number] Specimen Comment: No. of containers..01 ThinPrep Vial Performed By: #### L 7400.0280 #### [facility] [address] [place], [place], [address] COMMENT Comment Normal . [facility] Comment on above: Order Comment: Speci men Comment: [id number] Specimen Comment: Source.............Cervix Specimen Comment: LMP / Prev Treat...[id number] Specimen Comment: No. of containers..01 ThinPrep Vial Result Comment: This liquid based ThinPrep(R) pap test was screened with the use of an image guided system. Performed By: #### L 7400.0280 #### [facility] [address] [place], [place], [address] DIAG Comment Normal . [facility] Comment on above: Order Comment: Speci men Comment: [id number] Specimen Comment: Source.............Cervix Specimen Comment: LMP / Prev Treat...[id number] Specimen Comment: No. of containers..01 ThinPrep Vial Result Comment: NEGA TIVE FOR INTRAEPITHELIAL LESION OR MALIGNANCY. Performed By: #### L 7400.0280 #### [facility] [address] [place], [place], [address] HPV APTIMA, HR Negative Normal Negative [facility] Comment on above: Order Comment: Speci men Comment: [id number] Specimen Comment: Source.............Cervix Specimen Comment: LMP / Prev Treat...[id number] Specimen Comment: No. of containers..01 ThinPrep Vial Result Comment: This nucleic acid amplification test detects fourteen high- risk HPV types (16,18,31,33,35,39,45,51,52,56,58,59,66,68) without differentiation. Performed By: #### L 7400.0280 #### [facility] [address] [place], [address] HPV Cordelia Rfx Comment Normal . [facility] Comment on above: Order Comment: Speci men Comment: [id number] Specimen Comment: Source.............Cervix Specimen Comment: LMP / Prev Treat...[id number] Specimen Comment: No. of containers..01 ThinPrep Vial Result Comment: Crit erjanice not met, HPV Genotype not performed. Performed at: - [address] [id number] Respiratory Therapy Assistant: Reba Jennings MD, Phone: [phone] Performed at: = - [facility] [address] [id number] Respiratory Therapy Assistant: Reba Jennings MD, Phone: [phone] Performed By: #### L 7400.0280 #### [facility] [address] [place], [place], [address] PAPSMR Comment Normal . [facility] Comment on above: Order Comment: Speci men Comment: [id number] Specimen Comment: Source.............Cervix Specimen Comment: LMP / Prev Treat...[id number]=[id number] Specimen Comment: No. of containers..01 ThinPrep Vial Result Comment: The Pap smear is a screening test designed to aid in the detection of premalignant and malignant conditions of the uterine cervix. It is not a diagnostic procedure and should not be used as the sole means of detecting cervical cancer. Both false-positive and false-negative reports do occur. Performed By: #### L [id number] #### [facility] [address] [place], [address] PERFORM Comment Normal . [facility] Comment on above: Order Comment: Speci men Comment: [id number] Specimen Comment: Source.............Cervix Specimen Comment: LMP / Prev Treat...[id number] Specimen Comment: No. of containers..01 ThinPrep Vial Result Comment: Brandi Lewis, Planning Analyst (ASCP) Performed By: #### L [id number] #### [facility] [address] 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 Required: No Is patient in pain?: No Allergies cat dander Allergy (Intermediate, Verified 05/12/24 13:17) Hives cigarette smoke Allergy (Intermediate, Verified 05/12/24 13:17) Other dog dander Allergy (Intermediate, Verified 05/12/24 13:17) Hives perfume Allergy (Intermediate, Verified 05/12/24 13:17) Other Seasonal Allergies: Uncoded Allergy (Intermediate, Verified 05/12/24 13:17) Hives aspirin (From Flexiroam Back and Body) Allergy (Verified 05/12/24 13:17) Other caffeine (From Flexiroam Back and Body) Allergy (Verified 05/12/24 13:17) Other Medications ???Medication ???Instructions ???Recorded ???Confirmed ???Type albuterol sulfate 90 mcg/actuation 2 puff inhalation Q6H PRN asthma 01/12/20 05/12/24 History aerosol inhaler (ProAir HFA) fluticasone fur. 100 mcg-umeclid 1 inh inhalation DAILY 11/23/21 05/12/24 History 62.5 mcg-vilant 25 mcg inhalat.powder (Trelegy Ellipta) levocetirizine 5 mg tablet (Xyzal) 5 mg PO DAILY 11/23/21 05/12/24 History lansoprazole 30 mg capsule,delayed 30 mg PO DAILY 09/16/23 05/12/24 History release Is last menstrual period known: Yes Last Menstrual Period: 04/28/24 Post menopausal: No Patient : No : No Control Method[facility] History (Updated 05/12/24 @ 13:32 by Suzie Wilks NP, HOTEL STAFF MEMBER-C) History of gestational diabetes delivery delivered Acute otitis media, left depression Autoimmune disease Gestational diabetes Acute pharyngitis Urinary tract infection with hematuria Obesity affecting Asthma affecting , antepartum Surgical History History of surgery History of esophagogastroduodenoscop y (EGD) S/P cholecystectomy Family History Grandmother Breast cancer Grandfather Cancer Mother Diabetes Father Diabetes Social History adopted: No household members: spouse and children housing: house number of children: 1 current occupational status: employed current occupation: [employer] current occupational exposures/hazards: No pets and animals: Yes pets and animals: dog(s) history of recent travel: No sexually active: Yes Smoking Status: Never smoker second hand exposure: No alcohol intake: current alcohol intake frequency: holidays/special occasions only details: occasional- not while substance use type: does not use diet: other well-balanced diet: daily or most days caffeine: Yes Type: coffee Number of servings: 1 eating out: 1-3 times/week during the past year weight has: remained stable what type of physical activity do you participate in: none soy/mosque: None seatbelt use: always do you feel safe at home: Yes additional social history: Anthony blankenship History 2 Elective abortions Hx Para 2 Spontaneous abortions Hx # Term Pregnancies Ectopic pregnancies Hx # Pregnancies Multiple births 1 # of living children 3 Past Pregnancies Del. Date Name GA/Weeks Outcome Route Bth Weight Gen Labor Lgth Anesthesia Del Locatn Provider FOB 08/11/20 Vincent 40 live - full term 7lbs 5oz Male spinal [facility] 03/28/23 Alberto 37 5lbs 5oz Female [facility] Anthony 03/28/23 Vickey 37 3lbs 14oz Female [facility] Anthony Delivery Date: 08/11/20 Last Updated by: Tenisha Rodriguez Breech presentation; proteinuria; elevated BP HPI Encounter for routine gynecological examination Details: SUE ULRICH is a 33 year old who presents for annual exam. Stopped breast feeding 2 months ago and menses regular but slightly heavier. Changing super tampon about every 3-4 hours. Some weight gain, has had hives: seeing plumber assistant and was told her high dose of Xyzol can stimulate appetite. Last PAP: 2020 History of abnormal PAP: no Last mammogram: age 42 Other preventative health care screenings: Mia Female Reproductive History Last Menstrual Period: 04/28/24 Cycle Length: 21-35 Questions: metorrhagia: No, sexually active: Yes, dyspareunia: No and PCB: No ROS Const Constitutional: Denies fatigue, lay (more content not included)... Normal [facility] Basophil percentageOrdered B y: Faina Stokes on 03-29-2023 WBC (Bld) [#/Vol] 15.9 10*3/uL 4.4-11.0 [facility] Blood erythrocytes count (nu mber/volume)Ordered By: Faina Stokes on 03-29-2023 RBC (Bld) [#/Vol] 3.41 10*6/uL 4.2-5.4 [facility] Blood hemoglobin measurement (mass/volume)Ordered By: Faina Stokes on 03-29-2023 Hemoglobin (Bld) [Mass/Vol] 10.5 g/dL 12.0-15.0 [facility] Blood platelet mean volumeOr dered By: Faina Stokes on 03-29-2023 Platelet mean volume (Bld) [Entitic vol] 12.6 fL 6.2-12.0 [facility] Determination of erythrocyte mean corpuscular volume (MCV)Ordered By: Faina Stokes on 03-29-2023 MCV (RBC) [Entitic vol] 93.5 fL 81-99 [facility] Glucose Glucometer (dC) [M ass/Vol]Ordered By: Faina Stokes on 03-29-2023 Glucose [Mass/Vol] 82 mg/dL 74-106 [facility] Comment on above: MANAGEMENT OF PATIEN T CARE PER NURSING PROTOCOL Hematocrit Auto (Bld) [Volum e fraction]Ordered By: Faina Stokes on 03-29-2023 Hematocrit (Bld) [Volume fraction] 31.9 % 37-47 [facility] - Hematology and Cell countsOrdered By: Faina Stokes on 03-29-2023 Erythrocyte distribution width (RBC) [Entitic vol] 51.3 fL 35.1-43.9 [facility] Erythrocyte distribution width (RBC) [Ratio] 15.0 % 11.6-14.6 [facility] MCH (RBC) [Entitic mass] 30.8 pg 27.0-32.0 [facility] MCHC Auto (RBC) [Mass/Vol]Or dered By: Faina Stokes on 03-29-2023 MCHC (RBC) [Mass/Vol] 32.9 g/dL 32-36 [facility] Platelets bldOrdered By: Bart Stokes on 03-29-2023 Platelets (Bld) [#/Vol] 137 10*3/uL 150-450 [facility] Absolute lymphocyte countOrd ered By: Faina Stokes on 03-28-2023 Lymphocytes Auto (Unsp spec) [#/Vol] 2.40 10*3/uL 0.83-4.51 [facility] Basophil percentageOrdered B y: Faina Stokes on 03-28-2023 Basophils/100 WBC (Bld) 0.8 % 0-1 [facility] Eosinophils/100 WBC (Bld) 2.5 % 0-5 [facility] Neutrophils (Bld) [#/Vol] 7.1 10*3/uL 2.0-7.7 [facility] Neutrophils/100 WBC (Bld) 66.8 % 47-70 [facility] Blood lymphocytes/100 leukoc ytesOrdered By: Faina Stokes on 03-28-2023 Lymphocytes/100 WBC (Bld) 22.7 % 19-41 [facility] Blood monocytes/100 leukocyt esOrdered By: Faina Stokes on 03-28-2023 Monocytes/100 WBC (Bld) 6.1 % 0-10 [facility] - Hematology and Cell countsOrdered By: Faina Stokes on 03-28-2023 Immature granulocytes/100 WBC (Bld) 1.100 % 0.0-0.9 [facility] Comment on above: IG% - Immature Granu locytes (promyelocytes, myelocytes and metamyelocytes) > 1% indicates that a LEFT SHIFT is Present. Nucleated RBC/100 WBC (Bld) [Ratio] 0 % 0-5 [facility] Serum Treponema species anti body detectionOrdered By: Faina Stokes on 03-28-2023 Treponema sp Ab Ql (S) Non-Reactive [facility] - Chemistry and C hemistry - challengeon 03-25-2023 Glucose Ql (U) Negative [facility] - Urinalysison Protein Ql (U) Negative [facility] No Panel InformationOrdered By: Faina Stokes on 03-25-2023 Group B Streptococcus Culture Group B Beta Streptococcus is not isolated. [facility] - Chemistry and C hemistry - challengeon 03-14-2023 Glucose Ql (U) Negative [facility] - Urinalysison Protein Ql (U) Trace [facility] - Chemistry and C hemistry - challengeon 02-28-2023 Glucose Ql (U) Negative [facility] - Urinalysison Protein Ql (U) Negative [facility] - Chemistry and C hemistry - challengeon 02-10-2023 Glucose Ql (U) Negative [facility] - Urinalysison Protein Ql (U) Negative [facility] - Chemistry and C hemistry - challengeon 01-31-2023 Glucose Ql (U) Negative [facility] - Urinalysison Protein Ql (U) Negative [facility] Absolute lymphocyte countOrd ered By: Dr. Levine on 01-18-2023 Lymphocytes Auto (Unsp spec) [#/Vol] 1.95 10*3/uL 0.83-4.51 [facility] Basophil percentageOrdered B y: Dr. Levine on 01-18-2023 Basophils/100 WBC (Bld) 0.4 % 0-1 [facility] Eosinophils/100 WBC (Bld) 2.1 % 0-5 [facility] Neutrophils (Bld) [#/Vol] 7.9 10*3/uL 2.0-7.7 [facility] Neutrophils/100 WBC (Bld) 73.9 % 47-70 [facility] WBC (Bld) [#/Vol] 10.7 10*3/uL 4.4-11.0 [facility] Blood erythrocytes count (nu mber/volume)Ordered By: Dr. Levine on 01-18-2023 RBC (Bld) [#/Vol] 3.45 10*6/uL 4.2-5.4 [facility] Blood hemoglobin measurement (mass/volume)Ordered By: Dr. Levine on 01-18-2023 Hemoglobin (Bld) [Mass/Vol] 10.4 g/dL 12.0-15.0 [facility] Blood lymphocytes/100 leukoc ytesOrdered By: Dr. Levine on 01-18-2023 Lymphocytes/100 WBC (Bld) 18.2 % 19-41 [facility] Blood monocytes/100 leukocyt esOrdered By: Dr. Levine on 01-18-2023 Monocytes/100 WBC (Bld) 4.4 % 0-10 [facility] Blood platelet mean volumeOr dered By: Dr. Levine on 01-18-2023 Platelet mean volume (Bld) [Entitic vol] 11.2 fL 6.2-12.0 [facility] Determination of erythrocyte mean corpuscular volume (MCV)Ordered By: Dr. Levine on 01-18-2023 MCV (RBC) [Entitic vol] 91.9 fL 81-99 [facility] Gestational diabetes screen 1-hour screen with 50g oral glucose loadOrdered By: Dr. Levine on 01-18-2023 Glucose 1 Hr post 50 g glucose PO [Mass/Vol] 221 mg/dL 70-140 [facility] HIV 1 and HIV-2 antibody ass ay with HIV-1 p24 antigen detectionOrdered By: Dr. Levine on 01-18-2023 HIV 1+2 Ab+HIV1 p24 Ag IA Ql Non-Reactive Nonreactive [facility] Hematocrit Auto (Bld) [Volum e fraction]Ordered By: Dr. Levine on 01-18-2023 Hematocrit (Bld) [Volume fraction] 31.7 % 37-47 [facility] - Hematology and Cell countsOrdered By: Dr. Levine on 01-18-2023 Erythrocyte distribution width (RBC) [Entitic vol] 41.2 fL 35.1-43.9 [facility] Erythrocyte distribution width (RBC) [Ratio] 12.3 % 11.6-14.6 [facility] Immature granulocytes/100 WBC (Bld) 1.000 % 0.0-0.9 [facility] Comment on above: IG% - Immature Granu locytes (promyelocytes, myelocytes and metamyelocytes) > 1% indicates that a LEFT SHIFT is Present. MCH (RBC) [Entitic mass] 30.1 pg 27.0-32.0 [facility] Nucleated RBC/100 WBC (Bld) [Ratio] 0 % 0-5 [facility] MCHC Auto (RBC) [Mass/Vol]Or dered By: Dr. Levine on 01-18-2023 MCHC (RBC) [Mass/Vol] 32.8 g/dL 32-36 [facility] Platelets bldOrdered By: Dr. Levine on 01-18-2023 Platelets (Bld) [#/Vol] 283 10*3/uL 150-450 [facility] Serum Treponema species anti body detectionOrdered By: Dr. Levine on 01-18-2023 Treponema sp Ab Ql (S) Non-Reactive [facility] - Chemistry and C hemistry - challengeon 01-17-2023 Glucose Ql (U) Negative [facility] - Urinalysison Protein Ql (U) Negative [facility] - Chemistry and C hemistry - challengeon 12-17-2022 Glucose Ql (U) Negative [facility] - Urinalysison Protein Ql (U) Negative [facility] - Chemistry and C hemistry - challengeon 10-22-2022 Glucose Ql (U) Negative [facility] - Urinalysison Protein Ql (U) Negative [facility] Quantitative serum or plasma 3 hour gestational glucose tolerance panelOrdered By: Jennifer James on 10-08-2022 Glucose tolerance 3 hours gestational panel See comment [facility] Comment on above: FASTING 90 Col: 02/23 0652GLUCOSE TOLERANCE TEST FOR Reference Interval GESTATIONAL DIABETES Fasting <105 mg/dL 1 hour <190 mg/dl 2 hour <165 mg/dl 3 hour <145 mg/dl 1 HR GLU 141 Col: 10/08/22 0800 2 HR GLU PENDING RECEIPT Col: 10/08/22 0853 3 HR GLU PENDING RECEIPT Col: 10/08/22 0953 FASTING 90 Col: 02/23 0652GLUCOSE TOLERANCE TEST FOR Reference Interval GESTATIONAL DIABETES Fasting <105 mg/dL 1 hour <190 mg/dl 2 hour <165 mg/dl 3 hour <145 mg/dl 1 HR GLU 141 Col: 10/08/22 0800 2 HR GLU 119 Col: 10/08/22 0858 3 HR GLU 103 Col: 10/08/22 0958 Absolute lymphocyte countOrd ered By: Dr. Levine on 10-02-2022 Lymphocytes Auto (Unsp spec) [#/Vol] 1.92 10*3/uL 0.83-4.51 [facility] Basophil percentageOrdered B y: Dr. Levine on 10-02-2022 Basophils/100 WBC (Bld) 0.8 % 0-1 [facility] Eosinophils/100 WBC (Bld) 4.1 % 0-5 [facility] Neutrophils (Bld) [#/Vol] 5.7 10*3/uL 2.0-7.7 [facility] Neutrophils/100 WBC (Bld) 67.1 % 47-70 [facility] WBC (Bld) [#/Vol] 8.5 10*3/uL 4.4-11.0 [facility] Blood erythrocytes count (nu mber/volume)Ordered By: Dr. Levine on 10-02-2022 RBC (Bld) [#/Vol] 4.19 10*6/uL 4.2-5.4 [facility] Blood hemoglobin measurement (mass/volume)Ordered By: Dr. Levine on 10-02-2022 Hemoglobin (Bld) [Mass/Vol] 12.5 g/dL 12.0-15.0 [facility] Blood lymphocytes/100 leukoc ytesOrdered By: Dr. Levine on 10-02-2022 Lymphocytes/100 WBC (Bld) 22.6 % 19-41 [facility] Blood monocytes/100 leukocyt esOrdered By: Dr. Levine on 10-02-2022 Monocytes/100 WBC (Bld) 4.9 % 0-10 [facility] Blood platelet mean volumeOr dered By: Dr. Levine on 10-02-2022 Platelet mean volume (Bld) [Entitic vol] 11.7 fL 6.2-12.0 [facility] Determination of erythrocyte mean corpuscular volume (MCV)Ordered By: Dr. Levine on 10-02-2022 MCV (RBC) [Entitic vol] 92.1 fL 81-99 [facility] Gestational diabetes screen 1-hour screen with 50g oral glucose loadOrdered By: Dr. Levine on 10-02-2022 Glucose 1 Hr post 50 g glucose PO [Mass/Vol] 153 mg/dL 70-140 [facility] HIV 1 and HIV-2 antibody ass ay with HIV-1 p24 antigen detectionOrdered By: Dr. Levine on 10-02-2022 HIV 1+2 Ab+HIV1 p24 Ag IA Ql Non-Reactive Nonreactive [facility] Hematocrit Auto (Bld) [Volum e fraction]Ordered By: Dr. Levine on 10-02-2022 Hematocrit (Bld) [Volume fraction] 38.6 % 37-47 [facility] - Hematology and Cell countsOrdered By: Dr. Levine on 10-02-2022 Erythrocyte distribution width (RBC) [Entitic vol] 43.2 fL 35.1-43.9 [facility] Erythrocyte distribution width (RBC) [Ratio] 12.9 % 11.6-14.6 [facility] Immature granulocytes/100 WBC (Bld) 0.500 % 0.0-0.9 [facility] Comment on above: IG% - Immature Granu locytes (promyelocytes, myelocytes and metamyelocytes) > 1% indicates that a LEFT SHIFT is Present. MCH (RBC) [Entitic mass] 29.8 pg 27.0-32.0 [facility] Nucleated RBC/100 WBC (Bld) [Ratio] 0 % 0-5 [facility] MCHC Auto (RBC) [Mass/Vol]Or dered By: Dr. Levine on 10-02-2022 MCHC (RBC) [Mass/Vol] 32.4 g/dL 32-36 [facility] No Panel InformationOrdered By: Dr. Levine on 10-02-2022 Hepatitis B Surface Antigen Non-Reactive Nonreactive [facility] Hepatitis C Antibody Non-Reactive Nonreactive [facility] Comment on above: Non Reactive: < 0.8 Equivocal: >/= 0.8 to < 1.0 Reactive: >/= 1.0The CDC recommends that a reactive/equivocal HCV antibody result be followed up by the HCV Nucleic Acid Amplificationtest (049777) Rubella IgG Antibody Reactive Nonreactive [facility] Comment on above: Antibody Results Int erpretation of Immune Status Non Reactive Presumed Non-Immune Equivocal Equivocal Reactive Presumed Immune Platelets bldOrdered By: Dr. Levine on 10-02-2022 Platelets (Bld) [#/Vol] 225 10*3/uL 150-450 [facility] Serum Treponema species anti body detectionOrdered By: Dr. Levine on 10-02-2022 Treponema sp Ab Ql (S) Non-Reactive [facility] Culture, urineOrdered By: Dr Christopher Levine on 09-27-2022 Bacteria identified Cx Nom (U) Positive [facility] Chlamydia trachomatis rRNA d etection by probe and target amplification methodOrdered By: Dr. Levine on 09-25-2022 C. trachomatis rRNA ANRDEW+probe Ql (Unsp spec) Negative Negative [facility] - Microbiology an d Antimicrobial susceptibilityOrdered By: Dr. Levine on 09-25-2022 N. gonorrhoeae DNA ANDREW+probe Ql (Unsp spec) Negative Negative [facility] Comment on above: Performed at: =[address] [id number] Director: Reba Jennings MD, Phone: [phone] XR FLUORO 1-2 HRS TECH TIMEo n 04-03-2021 XR FLUORO 1-2 HRS TECH TIME ORIGINAL EXAMINATION: FLUORO MD - > 1 HR03/30/2021 2:59 pm FLUORO MD - > 1 HR COMPARISON: None Technical Details: 1 minute 32 seconds. 32.387 mGy. 6 images HISTORY: ORDERING SYSTEM PROVIDED HISTORY: Reason for Exam: ERCP FINDINGS: Fluoroscopic spot images were provided for interpretation. They demonstrate instrumentation and opacification of the biliary system.. Detail is limited. Please see the operative note for details. IMPRESSION: Documentation of fluoroscopy. Interpreted by: Jennifer Coughlin Preliminary Report By: Jennifer Coughlin Electronically signed By Jennifer Coughlin Dictated Date: 04/03/2021 9:54:40 AM Prelim Date: 04/03/2021 9:55:34 AM Sign Date: 04/03/2021 9:55:34 AM Ordering Provider: ONUR ARGUELLES Normal [facility] ([place] PREGUon 03-30-2021 HCG ( test) Ql (U) Negative Normal [facility] [place] Comment on above: Performed By: #### P REGU #### [address] [address] test (u) int Not detected Invalid Interpretation Code [facility] [place] Comment on above: Performed By: #### P REGU #### [place] [place], [place] [address] Final Surgical Pathology Rep [facility] 01-08-2021 Final Surgical Pathology Report . Pathology Reports Accession: Collected Date/Time: Received Date/Time: Pathologist: [id number] 01/04/2021 12:33 EDT 01/05/2021 08:55 EDT PABLO GABRIEL MD Final Surgical Pathology Report DIAGNOSIS: GALLBLADDER - CHRONIC CHOLECYSTITIS WITH CHOLELITHIASIS. COMMENT: AO - [id number] CLINICAL INFORMATION: Procedure: ROBOTIC-ASSISTED CHOLECYSTECTOMY Preoperative diagnosis: CHOLEDOCHOLITHIASIS Postoperative diagnosis: CHOLEDOCHOLITHIASIS SPECIMEN: A GALLBLADDER GROSS DESCRIPTION: A. Received in formalin, labeled with the patients name, Case #[id number], and gallbladder Dimensions-previously opened measuring 9 x 2 x 2 cm Cystic duct/pericystic duct lymph node-patent, no lymph node Serosal surface-yellow -pink predominantly smooth Luminal contents-dark green liquid bile and 1 green hard calculi measuring 0.7 cm. Mucosal surface-wahl -green stained with minute white specks Wall thickness-0.5 cm RS- 1 Dictated by CHRIS WILKINS MICROSCOPIC DESCRIPTION: Slides reviewed. Electronically Signed by Pathology Report verified by [facility] Electronically signed by PABLO GABRIEL Sign out Date: 01/08/2021 16:01 Performing Lab: [facility], [address] [place] [address] Normal [facility] ([place]) Comment on above: Performed By: #### S PFR #### [place] [address] .GFRon 01-04-2021 GFR 123 ml/min/1.73sqm Normal [facility] ([place] Comment on above: Result Comment: GFR Population mean for , Non- Americans Ages 20-29 = 116 mL/min/1.73 sq.m. Ages 30-39 = 107 mL/min/1.73 sq.m. Ages 40-49 = 99 mL/min/1.73 sq.m. Ages 50-59 = 93 mL/min/1.73 sq.m. Ages 60-69 = 85 mL/min/1.73 sq.m. Ages 70+ = 75 mL/min/1.73 sq.m. Chronic Kidney Disease: Less than 60 mL/min/1.73 square meters End Stage Renal Disease: Less than 15 mL/min/1.73 square meters Performed By: #### C MP #### [address] [address] #### GFR #### [address] [address] GFR Non- 101 ml/min/1.73sqm Normal [facility] ([place] Comment on above: Result Comment: GFR Population mean for , Non- Americans Ages 20-29 = 116 mL/min/1.73 sq.m. Ages 30-39 = 107 mL/min/1.73 sq.m. Ages 40-49 = 99 mL/min/1.73 sq.m. Ages 50-59 = 93 mL/min/1.73 sq.m. Ages 60-69 = 85 mL/min/1.73 sq.m. Ages 70+ = 75 mL/min/1.73 sq.m. Chronic Kidney Disease: Less than 60 mL/min/1.73 square meters End Stage Renal Disease: Less than 15 mL/min/1.73 square meters Performed By: #### C MP #### [place] [address] #### GFR #### [address] [address] CMPon 01-04-2021 Albumin Level 3.5 G/dL Normal 3.5-5.0 [facility] ([place] Comment on above: Order Comment: Wrong tube drawn Performed By: #### C MP #### [place] [address] #### GFR #### [address] [address] Albumin/Globulin [Mass ratio] 1.0 {ratio} Low 1.1-2.5 [facility] ([place] Comment on above: Order Comment: Wrong tube drawn Performed By: #### C MP #### [place] [id number] #### GFR #### [address] [address] ALP [Catalytic activity/Vol] 149 U/L High 40-135 [facility] ([place] Comment on above: Order Comment: Wrong tube drawn Performed By: #### C MP #### [address] [address] #### GFR #### [address] [address] ALT [Catalytic activity/Vol] 48 U/L Normal 14-59 [facility] [place] Comment on above: Order Comment: Wrong tube drawn Performed By: #### C MP #### [place] [address] #### GFR #### [address] [address] AST [Catalytic activity/Vol] 21 U/L Normal 10-40 [facility] [place] Comment on above: Order Comment: Wrong tube drawn Performed By: #### C MP #### [place] [address] #### GFR #### [place] [address] Bili Total 0.4 mg/dL Normal 0.2-1.0 [facility] ([place] Comment on above: Order Comment: Wrong tube drawn Result Comment: Use of this assay is not recommended for patients undergoing treatment with eltrombopag due to the potential for falsely elevated results. Performed By: #### C MP #### [address] [address] #### GFR #### [place] [id number] BUN/Creatinine Ratio 17 ratio Normal 7-27 [facility] ([place]) Comment on above: Order Comment: Wrong tube drawn Performed By: #### C MP #### [address] [address] #### GFR #### [place] [id number] Calcium [Mass/Vol] 8.6 mg/dL Normal 8.4-10.2 [facility] Comment on above: Order Comment: Wrong tube drawn Performed By: #### C MP #### [address] [address] #### GFR #### [address] [address] Chloride [Moles/Vol] 106 mmol/L Normal 98-107 [facility] ([place]) Comment on above: Order Comment: Wrong tube drawn Performed By: #### C MP #### [address] [address] #### GFR #### [address] [address] CO2 [Moles/Vol] 25 mmol/L Normal 22-29 [facility] ([place] Comment on above: Order Comment: Wrong tube drawn Performed By: #### C MP #### [address] [address] #### GFR #### [address] [address] Creatinine [Mass/Vol] 0.69 mg/dL Normal 0.55-1.02 [facility] ([place]) Comment on above: Order Comment: Wrong tube drawn Performed By: #### C MP #### [address] [address] #### GFR #### [address] [address] Electrolyte Balance 11.0 mEq/L Normal [facility] ([place]) Comment on above: Order Comment: Wrong tube drawn Performed By: #### C MP #### [address] [address] #### GFR #### [address] [address] Globulin 3.5 G/dL Normal [facility] ([place]) Comment on above: Order Comment: Wrong tube drawn Performed By: #### C MP #### [address] [address] #### GFR #### [address] [address] Glucose [Mass/Vol] 93 mg/dL Normal 70-105 [facility] ([place]) Comment on above: Order Comment: Wrong tube drawn Performed By: #### C MP #### [address] [address] #### GFR #### [address] [address] Potassium [Moles/Vol] 4.3 mmol/L Normal 3.5-5.1 [facility] ([place]) Comment on above: Order Comment: Wrong tube drawn Performed By: #### C MP #### [place] [address] #### GFR #### [address] [address] Sodium [Moles/Vol] 142 mmol/L Normal 136-145 [facility] ([place]) Comment on above: Order Comment: Wrong tube drawn Performed By: #### C MP #### [place] [address] #### GFR #### [address] [address] Total Protein 7.0 G/dL Normal 6.4-8.2 [facility] ([place]) Comment on above: Order Comment: Wrong tube drawn Performed By: #### C MP #### [place] [address] #### GFR #### [address] [address] Urea nitrogen [Mass/Vol] 12 mg/dL Normal 7-18 [facility] ([place]) Comment on above: Order Comment: Wrong tube drawn Performed By: #### C MP #### [place] [address] #### GFR #### [address] [address] PREGUon 01-04-2021 HCG ( test) Ql (U) Negative Normal [facility] ([place]) Comment on above: Performed By: #### P REGU #### [address] [address] test (u) int Not detected Invalid Interpretation Code [facility] ([place]) Comment on above: Performed By: #### P REGU #### [place] [address] [place], [place] [address] XR ERCP BILIARY AND PANCREAT IC DUCTon 12-30-2020 XR ERCP BILIARY AND PANCREATIC DUCT ORIGINAL XR ERCP BILIARY AND PANCREATIC DUCT ORDERING PROVIDER: BLANE CLINICAL STATEMENT: ERCP Technical Details: History - ERCP, balloon sweep, sphincter; Total Dose - 68.1 mGy; Government Documents Librarian - jlm; Fluoro Time - 204.5 sec; Films - 8; C-Arm# - [id number]; Outside Films for Comparison - n; FINDINGS: Fluoroscopic spot images were provided for interpretation. They demonstrate guidance for endoscopic retrograde cholangiogram. No filling defects are visualized, but the distal common duct is not well seen on the provided images. Biliary stent was placed. Contrast opacifies the gallbladder. Detail is limited. Please see the operative note for details. Interpreted By: Dakota Owens MD Preliminary Report By: Dakota Owens MD Electronically Signed By: Dakota Owens MD Dictated Date: 12/30/2020 1:41:56 AM Prelim Date: 12/30/2020 1:44:30 AM Sign Date: 12/30/2020 2:07:06 AM Ordering Provider:Onur Arguelles Normal [facility] ([place]) PREGUon 12-26-2020 HCG ( test) Ql (U) Negative Normal [facility] ([place]) Comment on above: Performed By: #### P REGU #### [address] [address] test (u) int Not detected Invalid Interpretation Code [facility] ([place]) Comment on above: Performed By: #### P REGU #### [address] [address] Vital Signs Date Time Vital Sign Value Performing Clinician Renéei sujata 03-31-2023 14:00-0400 Body temperature 97.7 [degF] Dr. Dave Bellamy Work Phone: [facility] 03-31-2023 14:00-0400 Diastolic blood pressure 72 mm[Hg] Dr. Dave Bellamy Work Phone: [facility] 03-31-2023 14:00-0400 Heart rate 88 /min Dr. Dave Bellamy Work Phone: [facility] 03-31-2023 14:00-0400 Respiratory rate 16 /min Dr. Dave Bellamy Work Phone: [facility] 03-31-2023 14:00-0400 Systolic blood pressure 116 mm[Hg] Dr. Dave Bellamy Work Phone: [facility] 03-31-2023 08:13-0400 SaO2% (BldA) [Mass fraction] 96 % Dr. Dave Bellamy Work Phone: [facility] 03-28-2023 10:08-0400 Body height 162.[address] Dave Bellamy Work Phone: [facility] 03-28-2023 10:08-0400 Body mass index (BMI) [Ratio] 38 kg/m2 Dr. Dave Bellamy Work Phone: [facility] 03-28-2023 10:08-0400 Body weight 100.[address] Dave Bellamy Work Phone: [facility] 03-25-2023 10:45-0400 Body height 165.[address] Dave Bellamy Work Phone: [facility] 03-25-2023 10:45-0400 Body mass index (BMI) [Ratio] 37.7 kg/m2 Dr. Dave Bellamy Work Phone: [facility] 03-25-2023 10:45-0400 Body weight 102.[address] Dave Bellamy Work Phone: [facility] 03-25-2023 10:24-0400 Diastolic blood pressure 75 mm[Hg] Dr. Dave Bellamy Work Phone: [facility] 03-25-2023 10:24-0400 Heart rate 75 /min Dr. Dave Bellamy Work Phone: [facility] 03-25-2023 10:24-0400 Systolic blood pressure 122 mm[Hg] Dr. Dave Bellamy Work Phone: [facility] 03-25-2023 09:34-0400 Body mass index (BMI) [Ratio] 37.9 kg/m2 Dr. Dave Bellamy Work Phone: [facility] 03-25-2023 09:34-0400 Body weight 103.[address] Dave Bellamy Work Phone: [facility] 03-25-2023 09:34-0400 Diastolic blood pressure 94 mm[Hg] Dr. Dave Bellamy Work Phone: [facility] 03-25-2023 09:34-0400 Systolic blood pressure 149 mm[Hg] Dr. Dave Bellamy Work Phone: 2(712)[phone] [address] 03-14-2023 14:04-0400 Body mass index (BMI) [Ratio] 37.8 kg/m2 Dr. Dave Bellamy Work Phone: [facility] 03-14-2023 14:04-0400 Body weight 103.[address] Dave Bellamy Work Phone: [facility] 03-14-2023 14:04-0400 Diastolic blood pressure 75 mm[Hg] Dr. Dave Bellamy Work Phone: [facility] 03-14-2023 14:04-0400 Systolic blood pressure 112 mm[Hg] Dr. Dave Bellamy Work Phone: [facility] 02-28-2023 11:28-0400 Body height 165.[address] Dave Bellamy Work Phone: [facility] 02-28-2023 11:28-0400 Body mass index (BMI) [Ratio] 37.6 kg/m2 Dr. Dave Bellamy Work Phone: [facility] 02-28-2023 11:28-0400 Body weight 102.[address] Dave Bellamy Work Phone: [facility] 02-28-2023 11:28-0400 Diastolic blood pressure 80 mm[Hg] Dr. Dave Bellamy Work Phone: [facility] 02-28-2023 11:28-0400 Systolic blood pressure 118 mm[Hg] Dr. Dave Bellamy Work Phone: [facility] 02-19-2023 12:00-0400 Body weight 99.[address] Dave Bellamy Work Phone: [facility] 02-10-2023 16:08-0400 Body mass index (BMI) [Ratio] 36.4 kg/m2 Dr. Dave Bellamy Work Phone: [facility] 02-10-2023 16:08-0400 Body weight 99.[address] Dave Bellamy Work Phone: [facility] 02-10-2023 16:08-0400 Diastolic blood pressure 83 mm[Hg] Dr. Dave Bellamy Work Phone: [facility] 02-10-2023 16:08-0400 Systolic blood pressure 117 mm[Hg] Dr. Dave Bellamy Work Phone: [facility] 01-31-2023 16:14-0400 Body mass index (BMI) [Ratio] 36.5 kg/m2 Dr. Dave Bellamy Work Phone: [facility] 01-31-2023 16:14-0400 Body weight 99.[address] Dave Bellamy Work Phone: [facility] 01-31-2023 16:14-0400 Diastolic blood pressure 79 mm[Hg] Dr. Dave Bellamy Work Phone: [facility] 01-31-2023 16:14-0400 Systolic blood pressure 113 mm[Hg] Dr. Dave Bellamy Work Phone: [facility] 01-17-2023 14:08-0400 Body height 165.[address] Dave Bellamy Work Phone: [facility] 01-17-2023 14:08-0400 Body mass index (BMI) [Ratio] 36.4 kg/m2 Dr. Dave Bellamy Work Phone: [facility] 01-17-2023 14:08-0400 Body weight 99.[address] Dave Bellamy Work Phone: [facility] 01-17-2023 14:08-0400 Diastolic blood pressure 81 mm[Hg] Dr. Dave Bellamy Work Phone: [facility] 01-17-2023 14:08-0400 Systolic blood pressure 122 mm[Hg] Dr. Dave Bellamy Work Phone: 8(015)[phone] [address] 12-17-2022 11:06-0400 Diastolic blood pressure 76 mm[Hg] Dr. Dave Bellamy Work Phone: 2(375)[phone] [place] [address] 12-17-2022 11:06-0400 Systolic blood pressure 110 mm[Hg] Dr. Dave Bellamy Work Phone: 4([phone])[phone] [address] 12-17-2022 11:00-0400 Body mass index (BMI) [Ratio] 35 kg/m2 Dr. Dave Bellamy Work Phone: 2([phone])[phone] [address] 12-17-2022 11:00-0400 Body weight 95.[address] Dave Bellamy Work Phone: 3([phone] [place] [address] 11-19-2022 11:21-0400 Body mass index (BMI) [Ratio] 34.1 kg/m2 Dr. Dave Bellamy Work Phone: [phone] [place] [address] 11-19-2022 11:21-0400 Body weight 93.[address] Dave Bellamy Work Phone: [facility] 11-19-2022 11:21-0400 Diastolic blood pressure 69 mm[Hg] Dr. Dave Bellamy Work Phone: [facility] 11-19-2022 11:21-0400 Systolic blood pressure 90 mm[Hg] Dr. Dave Bellamy Work Phone: [facility] 10-22-2022 11:57-0400 Body mass index (BMI) [Ratio] 33.7 kg/m2 Dr. Dave Bellamy Work Phone: [facility] 10-22-2022 11:57-0400 Body weight 91.[address] Dave Bellamy Work Phone: [facility] 10-22-2022 11:57-0400 Diastolic blood pressure 71 mm[Hg] Dr. Dave Bellamy Work Phone: [facility] 10-22-2022 11:57-0400 Systolic blood pressure 111 mm[Hg] Dr. Dave Bellamy Work Phone: [facility] 09-25-2022 09:14-0500 Body height 165.[address] Dave Bellamy Work Phone: [facility] 09-25-2022 09:14-0500 Body mass index (BMI) [Ratio] 34.1 kg/m2 Dr. Dave Bellamy Work Phone: [facility] 09-25-2022 09:14-0500 Body weight 93.[address] Dave Bellamy Work Phone: [facility] 09-25-2022 09:14-0500 Diastolic blood pressure 78 mm[Hg] Dr. Dave Bellamy Work Phone: [facility] 09-25-2022 09:14-0500 Systolic blood pressure 118 mm[Hg] Dr. Dave Bellamy Work Phone: [facility] Encounters Encounter Date Encounter Type Care Provider Facility Start: 12-08-2024 End: 12-08-[address] Florecita Bellamy MD Work Phone: [facility] Work Phone: Start: 12-08-2024 End: 12-08-[address] Candida Mclean MD -Laboratory Work Phone: Start: 12-08-2024 End: 12-08-2024 ambulatory Candida Mclean Facility:[facility] Start: 10-18-2024 End: 10-18-[address] Florecita Bellamy MD Work Phone: [facility] Work Phone: Start: 10-18-2024 End: 10-18-[address] Florecita Bellamy MD -Laboratory Work Phone: Start: 10-18-2024 End: 10-18-2024 [facility] Start: 08-20-2024 End: 08-20-[address] Florecita Bellamy MD -Laboratory Work Phone: Start: 08-20-2024 End: 08-20-2024 [facility] Start: 06-12-2024 End: 06-12-2024 [facility] Start: 05-12-2024 Encounter for gynecological examination (general) (routine) without abnormal findings Suzie Wilks NP [facility] Start: 05-12-2024 End: 05-12-2024 ambulatory [facility] Facility[facility] Start: 05-12-2024 End: 05-12-2024 [facility] Start: 02-25-2024 End: 03-18-2024 ambulatory [facility] Start: 03-31-2023 Non-patient / Non-visit Dr. Jose Bellamy Work Phone: [facility] Start: 03-30-2023 Non-patient / Non-visit Dr. Jose Bellamy Work Phone: [facility] Start: 03-29-2023 Non-patient / Non-visit Dr. Jose Bellamy Work Phone: [facility] Start: 03-28-2023 Non-patient / Non-visit Dr. Jose Bellamy Work Phone: [facility] Start: 03-28-2023 End: 03-31-2023 Evaluation and management of inpatient Dr. Dave Bellamy Work Phone: [facility] Work Phone: Start: 03-25-2023 Non-patient / Non-visit Dr. Jose Bellamy Work Phone: [facility] Start: 03-25-2023 End: 03-25-[address] Dave Bellamy Work Phone: [facility] Work Phone: Start: 03-25-2023 End: 03-25-[address] Dave Bellamy Work Phone: [facility] Out[facility] Work Phone: Start: 03-24-2023 End: 03-24-2023 ambulatory [facility] Start: 03-20-2023 End: 03-20-2023 ambulatory [facility] Start: 03-14-2023 End: 03-14-[address] Dave Bellamy Work Phone: [facility] Work Phone: Start: 02-28-2023 End: 02-28-[address] Dave Bellamy Work Phone: [facility] Work Phone: Start: 02-20-2023 End: 02-20-2023 ambulatory [place] [facility] Start: 02-19-2023 End: 03-03-[address] Dave Bellamy Work Phone: [facility] Work Phone: Start: 02-19-2023 End: 03-03-[address] Dave Bellamy Work Phone: [facility] Work Phone: Start: 02-10-2023 End: 02-10-[address] Dave Bellamy Work Phone: [facility] Work Phone: Start: 01-31-2023 End: 01-31-[address] Dave Bellamy Work Phone: [facility] Work Phone: Start: 01-23-2023 [facility] Start: 01-18-2023 End: 01-18-[address] Dave Bellamy Work Phone: [facility] Work Phone: Start: 01-18-2023 End: 01-18-[address] Dave Bellamy Work Phone: [facility] Start: 01-17-2023 End: 01-17-[address] Dave Bellamy Work Phone: [facility] Start: 12-26-2022 End: 12-26-2022 ambulatory [place] Maryse [facility] Start: 12-17-2022 End: 12-17-[address] Dave Bellamy Work Phone: [facility] Start: 11-28-2022 End: 11-28-2022 ambulatory SINTIA MENDOZA [facility] Start: 11-19-2022 End: 11-19-[address] Dave Bellamy Work Phone: [facility] Start: 10-22-2022 End: 10-22-[address] Dave Bellamy Work Phone: [facility] Start: 10-08-2022 End: 10-08-[address] Dave Bellamy Work Phone: [facility] Work Phone: Start: 10-08-2022 End: 10-08-[address] Dave Bellamy Work Phone: [facility] Start: 10-02-2022 End: 10-02-[address] Dave Bellamy Work Phone: [facility] Work Phone: Start: 10-02-2022 End: 10-02-[address] Dave Bellamy Work Phone: [facility] Start: 09-25-2022 End: 09-25-[address] Dave Bellamy Work Phone: [facility] Work Phone: Start: 09-25-2022 End: 09-25-[address] [facility] Bellamy [facility] Start: 09-25-2022 End: 09-25-[address] Dave Bellamy Work Phone: [facility] Procedures Date Procedure Procedure Detail Performing Clinician Start: 03-25-2023 Group B Streptococcu s Culture Dr. Dave Bellamy Work Phone: H/O: section Hx of cesa rean section Dr. Dave Bellamy Work Phone: Comment on above: VALERIO manriqueTCS schedu led for 04/04 @ 7:[address] with SM Urine culture Dr[address] Dave Bellamy Work Phone: Plan of Treatment Date Care Activity Detail Author Start: 03-31-2023 Patient discharge [facility] Start: 03-29-2023 Application of abdom inal corset [facility] Start: 03-29-2023 Consultation [facility] Start: 03-28-2023 Notification of physician [facility] Start: 03-28-2023 Vital signs measurements [facility] Start: 03-28-2023 [facility] [place] [facility] Start: 03-28-2023 Administration of medication [facility] Start: 03-28-2023 Ambulation therapy management [facility] Start: 03-28-2023 Application of device [facility] Start: 03-28-2023 End: 03-28-2023 Application of intermittent pneumatic compression device [facility] Start: 03-28-2023 Assessment of risk o f venous thromboembolism [facility] Start: 03-28-2023 Catheterization of vein [facility] Start: 03-28-2023 Deep breathing and c oughing exercises [facility] Start: 03-28-2023 Exercises [facility] [place] [facility] Start: 03-28-2023 Measuring intake and output [facility] Start: 03-28-2023 Notification of physician [facility] Start: 03-28-2023 Procedure discontinued [facility] Start: 03-28-2023 Provision of activit y privileges [facility] Start: 03-28-2023 Vital signs measurements [facility] Start: 03-28-2023 Wound care [facility] [place] [facility] Start: 03-28-2023 [facility] Start: 03-28-2023 Application of abdom inal corset [facility] Start: 03-28-2023 section Repeat C-Sect ion (Not Applicable) [facility] Start: 03-28-2023 Admission procedure [facility] Start: 03-28-2023 Verification routine [facility] Start: 03-25-2023 Nonstress test [facility] Start: 03-25-2023 Patient discharge [facility] Glucose [Mass/volume ] in Serum or Plasma --2 hours post dose glucose [facility] Glucose [Mass/volume ] in Serum or Plasma --3 hours post dose glucose [facility] Patient Education After a [facility] Work Phone: Patient referral [facility] Work Phone: Streptococcus agalac tiae [Presence] in Unspecified specimen by Organism specific culture [facility] Immunizations Immunization Date Immunization Notes Care Provider Elida wade 01-31-2023 tetanus toxoid, reduced diphtheria toxoid, and acellular pertussis vaccine, adsorbed Dr. Dave Bellamy Work Phone: [facility] 05-05-2020 tetanus toxoid, reduced diphtheria toxoid, and acellular pertussis vaccine, adsorbed Dr. Dave Bellamy Work Phone: [facility] 04-07-2020 influenza, injectabl e, quadrivalent, preservative free Dr. Florecita Bellamy MD Work Phone: [facility] 04-07-2020 influenza, seasonal, injectable Dr. Dave Bellamy Work Phone: [facility] Payers Date Payer Category Payer Private Health Insurance [id number] Self-pay [id number] 2023 Private Health Insurance [id number] 1990 Unknown [id number] 1990 Unknown [id number] 1990 Unknown [id number] 1990 Unknown [id number] 1992 Unknown [id number] 1990 Unknown [id number] Unknown COMMERCIAL OTHER [id number] Unknown [id number] Unknown [id number] Unknown [id number] Unknown [id number] Unknown [id number] Unknown [id number] Unknown [id number] Social History Date Type Detail Facility Start: 09-25-2022 End: 03-28-2023 Tobacco smoking status MEIS Unknown if ever smoked [facility] Start: 1990 Sex Assigned At Female [facility] Start: 09-16-2023 Tobacco smoking stat [facility] Never smoked tobacco (finding) [facility] Start: 10-25-2024 Sex Female (finding) [facility] Medical Equipment Procedure Code Equipment Code Equipment Origin al Text Equipment Identifier Dates Blood Sugar Diagnostic (Blood Glucose Test) strip Start: 01-20-2023 Lancets Start: 01-20-2023 Blood Sugar Diagnostic (Blood Glucose Test) strip Start: 01-20-2023 Lancets Start: 01-20-2023 Blood Sugar Diagnostic (Blood Glucose Test) strip Start: 01-20-2023 Lancets Start: 01-20-2023 Blood Sugar Diagnostic (Blood Glucose Test) strip Start: 01-20-2023 Lancets Start: 01-20-2023 Blood Sugar Diagnostic (Blood Glucose Test) strip Start: 01-20-2023 End: 05-12-2024 Lancets misc Start: 01-20-2023 End: 05-12-2024 Blood Sugar Diagnostic (Blood Glucose Test) strip Start: 01-20-2023 End: 05-12-2024 Lancets misc Start: 01-20-2023 End: 05-12-2024 Goals Date Patient Goal Desired Activity /State Mental Status Date Assessment Result Facility 03-29-2023 Cognitive function Level Of Cons ciousness Awake;Alert;Appropriate [facility] Work Phone: Clinical Notes 03-28-2023 to 03-31-2023 Note Date & Type Note Facility 03-31-2023 Discharge summary Note Date/Time March 28, 2023 5:05pm [facility] Medical Records Department [address] [place] [address] Instructions for Home/Discharge Instructions 03/28/23 1705 MR#: [id number] Acct: [id number] Name: SUE ULRICH Rep #:[id number] : 1990 32 From: Faina silverio MD PCP: Dr. Dave Bellamy MD Status: ADM IN Discharge Instructions Diet Discharge Diet: No restrictions Activity Discharge Activity: May Not Drive (for 2 weeks or while taking narcotic pain medications.), May Shower and May Take a Tub Bath (in 7 days) May shower in (days): 0 May resume sexual activity in: 4-6 weeks Weight Bearing Status: Full weight bearing Lifting Restrictions: 20 pounds Dressing / Incision Call your doctor if your incision/area has: Continuous Slow Oozing, Sudden Increased Bleeding, Increased Pain/ Swelling, Increased Redness and Foul Smelling Discharge Call your doctor if you observe: Fever of 101 or Higher and Using more than 1 pad per hour (for 2 hours) Suture Line Care: Avoid Pulling/Pushing and Avoid Pinching/Bending Cleanse incision/area with: Soap & Water and Keep Dressing Clean & Dry Follow Up Care Please Follow Up With: Faina Stokes MD When: Call [phone] to make an appointment for an incision check in 1-2 weeks. Test Results: Test results from this visit will be discussed in further detail at your follow-up appointment, if applicable. Discharge Plan Admission Admit Date/Time: 03/28/23 09:55 Attending Provider: Faina Stokes Primary Care Provider: Dave Bellamy Discharge Orders/Prescriptions Prescriptions: No Action albuterol sulfate [ProAir HFA] 90 mcg/actuation HFA aerosol inhaler 2 puff INHALATION Q6H PRN (Reason: asthma) montelukast [Singulair] 10 mg tablet 10 mg PO DAILY levocetirizine [Xyzal] 5 mg tablet 5 mg PO DAILY omeprazole 40 mg capsule,delayed release(DR/EC) 40 mg PO DAILY Trelegy Ellipta 100-62.5-25 mcg blister with device 1 inh inhalation DAILY (DME) blood-glucose meter Misc See Rx Instructions .MEDSUPPLY Qty: 1 0RF Rx Instructions: As directed- Test fasting and 2 hours after meals (DME) lancets Misc See Rx Instructions .MEDSUPPLY Qty: 100 6RF Rx Instructions: As directe Fasting & 2 hours post meals (DME) Blood Glucose Test Strip See Rx Instructions .Route Qty: 120 4RF Rx Instructions: As directed- Fasting & 2 hours post meals Referrals / Follow Up: Dave Bellamy MD [Primary Care Provider] - 03/31/23 0807<Electronically signed by Faina Stokes MD>Faina Stokse MD CC: Dr. Dave Bellamy MD ~ Signed [facility] Work Phone: 1(421) 457-781108-28-2023 Discharge summary Author [facility] March 31, 2023 8:07am Note Date/Time March 31, 2023 7: 03am [facility] Medical Records Department [address] [place] [address] Discharge Summary 03/31/23 0702 MR#: [id number] Acct: [id number] Name: HEAD,SUE JOHNSTON Rep #:[id number] : 1990 32 From: Faina silverio MD PCP: Dr. Dave Bellamy MD Status: ADM IN Location: [id number] Providers Date of Admission: 03/28/23 Primary Care Physician: Dr. Dave Bellamy MD Reason For Visit: REPEAT C SECTION Diagnosis Discharge Diagnosis (1) delivery delivered: Status: Acute Code(s): O82 - Encounter for delivery without indication (2) Gestational diabetes mellitus (GDM): Status: Acute Code(s): O24.419 - Gestational diabetes mellitus in , unspecified control Plan s/p LTCS PPD # 3 1. routine post care 2. breast feeding- support given 3. rh positive 4. rubella immune Medications at Discharge Home Medications albuterol sulfate 90 mcg/actuation aerosol inhaler (ProAir HFA) 2 puff inhalation Q6H PRN asthma 01/12/20 fluticasone fur. 100 mcg-umeclid 62.5 mcg-vilant 25 mcg inhalat.powder (Trelegy Ellipta) 1 inh inhalation DAILY 11/23/21 levocetirizine 5 mg tablet (Xyzal) 5 mg PO DAILY 11/23/21 montelukast 10 mg tablet (Singulair) 10 mg PO DAILY 11/23/21 omeprazole 40 mg capsule,delayed release 40 mg PO DAILY 11/23/21 blood sugar diagnostic (Blood Glucose Test strips) #120 ea 01/20/23 blood-glucose meter #1 ea 01/20/23 lancets #100 ea 01/20/23 naproxen 500 mg tablet 500 mg PO Q8H #0 tabs 03/30/23 oxycodone 5 mg tablet 5 - 10 mg (1 - 2 x 5 mg) PO Q4H PRN PRN Pain Score 4-10 5 days #14 tabs 03/30/23 Hospital Course Summary of Care Provided Hospital Course: patient presented for RLTCS and had an uncomplicated delivery. Postoperatively patient had return of bowel and bladder function and was ambulating well, tolerating adequate p.o., and was stable for discharge to home on postop day #3. Discharge medications naproxen and Percocet. Follow-up in office in 2 weeks forincision check in 6 weeks for visit. Routine post section diet and activity instructions. Weight / BMI Weight Weight: 222 lb Body Mass Index (BMI) 38.0 ABG / Lab / Microbiology Data 03/29/23 06:15 D/C Instructions Discharge Diet: No restrictions Discharge Activity: May Not Drive (for 2 weeks or while taking narcotic pain medications.), May Shower and May Take a Tub Bath (in 7 days) May shower in (days): 0 May resume sexual activity in: 4-6 weeks Weight Bearing Status: Full weight bearing Call your doctor if your incision/area has: Continuous Slow Oozing, Sudden Increased Bleeding, Increased Pain/ Swelling, Increased Redness and Foul Smelling Discharge Call your doctor if you observe: Fever of 101 or Higher and Using more than 1 pad per hour (for 2 hours) Suture Line Care: Avoid Pulling/Pushing and Avoid Pinching/Bending Cleanse incision/area with: Soap & Water and Keep Dressing Clean & Dry Please Follow Up With: Faina Stokes MD When: Call [phone] to make an appointment for an incision check in 1-2 weeks. Meaningful Use Info Meaningful Use Diagnoses (Choose all that apply): None applicable Discharge Plan Admission Admit Date/Time: 03/28/23 09:55 Attending Provider: Faina Stokes Primary Care Provider: Dave Bellamy Discharge Orders/Prescriptions Prescriptions: New naproxen 500 mg Tablet 500 mg PO Q8H Qty: 0 0RF oxycodone 5 mg Tablet 5 - 10 mg PO Q4H PRN PRN (Reason: Pain Score 4-10) 5 Days Qty: 14 0RF Continued albuterol sulfate [ProAir HFA] 90 mcg/actuation HFA aerosol inhaler 2 puff INHALATION Q6H PRN (Reason: asthma) montelukast [Singulair] 10 mg tablet 10 mg PO DAILY levocetirizine [Xyzal] 5 mg tablet 5 mg PO DAILY omeprazole 40 mg capsule,delayed release(DR/EC) 40 mg PO DAILY Trelegy Ellipta 100-62.5-25 mcg blister with device 1 inh inhalation DAILY No Action (DME) blood-glucose meter Misc See Rx Instructions .MEDSUPPLY Qty: 1 0RF Rx Instructions: As directed- Test fasting and 2 hours after meals (DME) lancets Misc See Rx Instructions .MEDSUPPLY Qty: 100 6RF Rx Instructions: As directe Fasting & 2 hours post meals (DME) Blood Glucose Test Strip See Rx Instructions .Route Qty: 120 4RF Rx Instructions: As directed- Fasting & 2 hours post meals Referrals / Follow Up: Dave Bellamy MD [Primary Care Provider] - 03/31/23 0807 <Electronically signed by Faina Stokes MD> Cosigner Signature (if applicable): CC: Dr. Dave Bellamy MD; Dr. Faina Stokes MD~ Signed [facility] Work Phone: 1(970) 714-867908-28-2023 Progress note Author Faina Stokes [facility] March 31, 2023 8:07am Note Date/Time March 31, 2023 7: 02am [facility] Medical Records Department [address] [place] [address] Progress Note - OBGYN 03/31/23 0701 MR#: [id number] Acct: [id number] Name: SUE ULRICH Rep #:[id number] : 1990 32 From: Faina silverio MD PCP: Dr. Dave Bellamy MD Status: ADM IN [id number] Subjective Subjective Patient doing well without complaints. Tolerating PO. Ambulating and voiding without difficulty. infant feeding well. Denies chest pain, shortness of breath,calf pain/swelling, fevers, chills, lightheadedness. Objective Data Objective Data Vital Signs: Vital Signs Temp Pulse Resp BP Pulse Ox O2 Del Method 97.6 F L 65 18 124/71 H 97 Room Air 03/30/23 19:30 03/31/23 01:10 03/31/23 01:10 03/31/23 01:10 03/30/23 19:30 03/30/23 19:30 Oxygen Delivery Method Room Air Weight: 222 lb Body Mass Index (BMI) 38.0 Intake & Output: Intake and Output for Last 24 Hours 03/29/23 03/30/23 03/31/23 23:59 23:59 23:59 Intake Total 3506.67 / 3506.67 Output Total 1850 / 1850 Balance 1656.67 / 1656.67 Lab / Micro Data 03/29/23 06:15 ROS Constitutional Constitutional: Reports systems reviewed and no addt'l complaints, except as documented Cardiovascular Cardiovascular: Reports systems reviewed and no addt'l complaints, except as documented Respiratory/Chest Respiratory/Chest: Reports systems reviewed and no addt'l complaints, except as documented Gastrointestinal Gastrointestinal: Reports systems reviewed and no addt'l complaints, except as documented Physical Exam Const alert, oriented x3 and no apparent distress HEENT Head and Scalp: atraumatic Resp normal respiratory effort GI soft to palpation and non-tender Inspection: incision intact, healing well and drainage (none) Bimanual Exam - Vag & Uterus: uterus non-tender Uterus Palpation: uterus fundus firm (below Umbilicus) Assessment & Plan (1) delivery delivered: COMMENT: SM RLTCS twins 37 IUGR GDMA1 alberto hurd girls (2) Gestational diabetes mellitus (GDM): COMMENT: BS fasting & 2hr post meals, 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 routine post care 2. breast feeding- support given 3. rh positive 4. rubella immune 03/31/23 0807 <Electronically signed by Faina Stokes MD> Cosigner Signature (if applicable): CC: ~ Signed [facility] Work Phone: 1(656) 684-119908-27-2023 Progress note Author Jennifer James [facility] March 30, 2023 8:33am Note Date/Time March 30, 2023 8: 33am [facility] Medical Records Department [address] [place] [id number] Progress Note - OBGYN 03/30/23 0829 MR#: [id number] Acct: [id number] Name: SUE ULRICH Rep #:[id number] : 1990 32 From: Jennifer James CNM PCP: Dr. Dave Bellamy MD Status: ADM IN Location: [id number] Subjective Subjective Patient doing well without complaints. Tolerating PO. Ambulating and voiding without difficulty. Feeding well. Denies chest pain, shortness of breath, calf pain/swelling, fevers, chills, lightheadedness. Objective Data Objective Data Vital Signs: Vital Signs Temp Pulse Resp BP Pulse Ox O2 Del Method 97.7 F L 87 18 121/70 H 96 Room Air 03/30/23 02:00 03/30/23 02:00 03/30/23 02:00 03/30/23 02:00 03/30/23 02:00 03/30/23 02:00 Oxygen Delivery Method Room Air Weight: 222 lb Body Mass Index (BMI) 38.0 Intake & Output: Intake and Output for Last 24 Hours 03/28/23 03/29/23 03/30/23 23:59 23:59 23:59 Intake Total 2170.33 / 2170.33 3506.67 / 3506.67 Output Total 1500 / 1500 1850 / 1850 Balance 670.33 / 670.33 1656.67 / 1656.67 Lab / Micro Data Attestation: I reviewed the patient's lab results. 03/29/23 06:15 ROS Constitutional Constitutional: Reports systems reviewed and no addt'l complaints, except as documented; Denies anorexia or headache(s) Cardiovascular Cardiovascular: Reports systems reviewed and no addt'l complaints, except as documented; Denies dizziness, dyspnea, nausea or tachypnea Respiratory/Chest Respiratory/Chest: Reports systems reviewed and no addt'l complaints, except as documented; Denies cough, dyspnea, shortness of breath at rest or tachypnea Gastrointestinal Gastrointestinal: Reports systems reviewed and no addt'l complaints, except as documented; Denies abdominal pain, constipation or nausea Genitourinary Genitourinary: Reports systems reviewed and no addt'l complaints, except as documented; Denies burning urination, difficulty urinating, dysuria, urinary frequency or urinary incontinence Musculoskeletal Musculoskeletal: Reports systems reviewed and no addt'l complaints, except as documented Integumentary Integumentary: Reports systems reviewed and no addt'l complaints, except as documented Neurologic Neurologic: Reports systems reviewed and no addt'l complaints, except as documented; Denies abnormal speech, dizziness or headache(s) Psychiatric Psychiatric: Reports systems reviewed and no addt'l complaints, except as documented Endocrine Endocrinology: Reports systems reviewed and no addt'l complaints, except as documented Hematologic/Lymphatic Hematologic/Lymphatic: Reports systems reviewed and no addt'l complaints, exceptas documented Physical Exam Const alert, oriented x3 and no apparent distress Neck full ROM Resp normal respiratory effort, normal air movement and no retractions Effort and Inspection: able to speak in complete sentences and symmetric chest movement GI soft to palpation Inspection: incision Bladder / Kidney Exam: bladder normal to palpation Uterus Palpation: uterus fundus firm Extremity normal to inspection and full ROM Psych mental status grossly normal, thought process normal and cooperative Assessment & Plan (1) delivery delivered: COMMENT: RLTCS twins 37 IUGR GDMA1 alberto vickey girls PLAN: s/p LTCS PPD # 2 1. routine post care 2. breast feeding- support given 3. rh positive 4. 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 Charges/Coding Multi Select Codes Urinary/Genital Urinary/Genital CPT Codes: No Charge 03/30/23832 <Electronically signed by Jennifer James CNM> Cosigner Signature (if applicable): CC: ~ Signed [facility] Work Phone: 1(718) 456-575508-26-2023 Progress note Author Jennifer James [facility] March 29, 2023 9:27am Note Date/Time March 29, 2023 9: 27am [facility] Medical Records Department [address] [place] [address] Progress Note - OBGYN 03/29/23925 MR#: [id number] Acct: [id number] Name: SUE ULRICH Rep #:[id number] : 1990 32 From: Jennifer James CNM PCP: Dr. Dave Bellamy MD Status: ADM IN Location: [place] [address] Subjective Subjective Patient doing well without complaints. Tolerating PO. Ambulating and voiding without difficulty. Feeding well. Denies chest pain, shortness of breath, calf pain/swelling, fevers, chills, lightheadedness. Objective Data Objective Data Vital Signs: Vital Signs Temp Pulse Resp BP Pulse Ox O2 Del Method 98.1 F 76 18 101/61 95 Room Air 03/29/23 08:11 03/29/23 08:11 03/29/23 08:11 03/29/23 08:11 03/29/23 08:11 03/29/23 08:11 Oxygen Delivery Method Room Air Weight: 222 lb Body Mass Index (BMI) 38.0 Intake & Output: Intake and Output for Last 24 Hours 03/27/23 03/28/23 03/29/23 23:59 23:59 23:59 Intake Total 2170.33 / 2170.33 Output Total 1500 / 1500 250 / 250 Balance 670.33 / 670.33 -250 / -250 Lab / Micro Data 03/29/23 06:15 Labs: Laboratory Results - last 24 hr 03/28/23 10:25: WBC 10.6, RBC 3.98 L, Hgb 12.1, Hct 36.9 L, MCV 92.7, MCH 30.4, MCHC 32.8, RDW Std Deviation 49.2 H, RDW Coeff of Eveline 14.6, Plt Count 153, MPV 12.8 H, Immature Gran % (Auto) 1.100 H, Neut % (Auto) 66.8, Lymph % (Auto) 22.7,Bandera % (Auto) 6.1, Eos % (Auto) 2.5, Baso % (Auto) 0.8, Absolute Neuts (auto) 7.1, Absolute Lymphs (auto) 2.40, Nucleated RBC % 0, Syphilis Total Ab Non-reactive, Blood Type A POSITIVE, Antibody Screen NEGATIVE 03/28/23 10:46: POC Glucose 78 03/28/23 18:41: POC Glucose 90 03/29/23 06:15: WBC 15.9 H, RBC 3.41 L, Hgb 10.5 L, Hct 31.9 L, MCV 93.5, MCH 30.8, MCHC 32.9, RDW Std Deviation 51.3 H, RDW Coeff of Eveline 15.0 H, Plt Count 137 L, MPV 12.6 H 03/29/23 06:18: POC Glucose 82 ROS Constitutional Constitutional: Reports systems reviewed and no addt'l complaints, except as documented; Denies anorexia or headache(s) Cardiovascular Cardiovascular: Reports systems reviewed and no addt'l complaints, except as documented; Denies dizziness, dyspnea, nausea or tachypnea Respiratory/Chest Respiratory/Chest: Reports systems reviewed and no addt'l complaints, except as documented; Denies cough, dyspnea, shortness of breath at rest or tachypnea Gastrointestinal Gastrointestinal: Reports systems reviewed and no addt'l complaints, except as documented; Denies abdominal pain, constipation or nausea Genitourinary Genitourinary: Reports systems reviewed and no addt'l complaints, except as documented; Denies burning urination, difficulty urinating, dysuria, urinary frequency or urinary incontinence Musculoskeletal Musculoskeletal: Reports systems reviewed and no addt'l complaints, except as documented Integumentary Integumentary: Reports systems reviewed and no addt'l complaints, except as documented Neurologic Neurologic: Reports systems reviewed and no addt'l complaints, except as documented; Denies abnormal speech, dizziness or headache(s) Psychiatric Psychiatric: Reports systems reviewed and no addt'l complaints, except as documented Endocrine Endocrinology: Reports systems reviewed and no addt'l complaints, except as documented Hematologic/Lymphatic Hematologic/Lymphatic: Reports systems reviewed and no addt'l complaints, exceptas documented Physical Exam Const alert, oriented x3 and no apparent distress Neck full ROM Resp normal respiratory effort, normal air movement and no retractions Effort and Inspection: able to speak in complete sentences and symmetric chest movement GI soft to palpation Inspection: incision intact Bladder / Kidney Exam: bladder normal to palpation Uterus Palpation: uterus fundus Extremity normal to inspection and full ROM Psych mental status grossly normal, thought process normal and cooperative Assessment & Plan (1) delivery delivered: COMMENT: RLTCS twins 37 IUGR GDMA1 alberto hurd girls PLAN: s/p LTCS PPD # 1 1. routine post care 2. breast feeding- support given 3. rh positive 4. 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 Charges/Coding Multi Select Codes Urinary/Genital Urinary/Genital CPT Codes: No Charge 03/29/23 09 <Electronically signed by Jennifer James CNM> Cosigner Signature (if applicable): CC: ~ Signed [facility] Work Phone: 1(206) 887-296308-25-2023 History and physical note Author Faina Stokes [facility] March 28, 2023 5:00pm Note Date/Time March 28, 2023 4: 59pm [facility] Medical Records Department [address] [place] [address] H&P Exam - FINANCIAL INVESTMENT MANAGER 03/28/23 1615 MR#: [id number] Acct: [id number] Name: SUE ULRICH Rep #:[id number] : 1990 32 From: Faina silverio MD PCP: Dr. Dave Bellamy MD Status: ADM IN Location: [id number] HPI - General General Date of Admission: 03/28/23 HPI Narrative SUE ULRICH, is a 32 F who presents for RLTCS twins, delivering at 37 weeks dueto IUGR of one twin. Maternal Data Information BANG Calculator Estimated Delivery Date Method Current WG Current Estimate 04/18/23 LMP (Certain) 37w 0d # 2 PFSH PFSH Medical History (Updated 03/28/23 @ 10:14 by Shobha Jordan) Acute pharyngitis Asthma affecting , antepartum Autoimmune disease Gestational diabetes Obesity affecting depression Urinary tract infection with hematuria Home Medications albuterol sulfate 90 mcg/actuation aerosol inhaler (ProAir HFA) 2 puff inhalation Q6H PRN asthma 01/12/20 [History Last Taken 08/08/20] fluticasone fur. 100 mcg-umeclid 62.5 mcg-vilant 25 mcg inhalat.powder (Trelegy Ellipta) 1 inh inhalation DAILY 11/23/21 [History Last Taken Unknown] levocetirizine 5 mg tablet (Xyzal) 5 mg PO DAILY 11/23/21 [History Last Taken Unknown] montelukast 10 mg tablet (Singulair) 10 mg PO DAILY 11/23/21 [History Last Taken Unknown] omeprazole 40 mg capsule,delayed release 40 mg PO DAILY 11/23/21 [History Last Taken Unknown] blood sugar diagnostic (Blood Glucose Test strips) #120 ea 01/20/23 [Rx Last Taken Unknown] blood-glucose meter #1 ea 01/20/23 [Rx Last Taken Unknown] lancets #100 ea 01/20/23 [Rx Last Taken Unknown] Allergy/AdvReac Type Severity Reaction Status Date / Time cat dander Allergy Intermediate Hives Verified 03/25/23 09:35 cigarette smoke Allergy Intermediate Other Verified 03/25/23 09:35 dog dander Allergy Intermediate Hives Verified 03/25/23 09:35 perfume Allergy Intermediate Other Verified 03/25/23 09:35 Seasonal Allergies: Uncoded Allergy Intermediate Hives Verified 03/25/23 09:35 aspirin Allergy Other Verified 03/25/23 09:35 [From [facility]] caffeine Allergy Other Verified 03/25/23 09:35 [From [facility]] Family History Grandmother Breast cancer Grandfather Cancer Mother Diabetes Father Diabetes Surgical History (Updated 03/28/23 @ 10:17 by Shobha Jordan) History of esophagogastroduodenoscopy (EGD) History of surgery S/P cholecystectomy Social History adopted: No household members: spouse and children housing: house number of children: 1 current occupational status: employed current occupation: [employer] current occupational exposures/hazards: No pets and animals: Yes pets and animals: dog(s) history of recent travel: No sexually active: Yes Smoking Status: Never smoker second hand exposure: No alcohol intake: current alcohol intake frequency: holidays/special occasions only details: occasional- not while substance use type: does not use diet: other well-balanced diet: daily or most days caffeine: Yes Type: coffee Number of servings: 1 eating out: 1-3 times/week during the past year weight has: remained stable what type of physical activity do you participate in: none soy/mosque: None seatbelt use: always do you feel safe at home: Yes additional social history: Anthony blankenship History 2 Elective abortions Hx Para 1 Spontaneous abortions Hx # Term Pregnancies Ectopic pregnancies Hx # Pregnancies Multiple births # of living children 1 Past Pregnancies Del. Date Name GA/Weeks Outcome Route Bth Weight Gen Labor Lgth Anesthesia Del [facility] Provider FOB 08/11/20 Juliogina 40 live - full term 7lbs 5oz Male spinal [facility] Delivery Date: 08/11/20 Last Updated by: Tenisha Rodriguez Breech presentation; proteinuria; elevated BP Visit Details Expected Delivery Route/Plan prior section ,desires repeat Plans Covid status: [] Flu vaccine: [] Tdap vaccine: [] Rhogam: [] LARC form signed: [] Problem list reviewed and updated with the most current plan of care details and appropriate orders placed. Relevant counseling for the gestational age provided. Continue routine care and follow up unless otherwise noted in visit notes/problem list details OB Flowsheet Initial Weight: Not Recorded Date -?-?-?-?-?-?-?-?-?-?-?-?- EGA Weight BP Urine Prot -?-?-?-?-?-?-?-?-?-?-?-?- Glucose FHR FuHt Pres Dilation -?-?-?-?-?-?-?-?-?-?-?-?- Effaced St Visit Note 09/25/22 -?-?-?-?-?-?-?-?-?-?-?-?- 10w 5d 205 lb 4 oz 118/78 -?-?-?-?-?-?-?-?-?-?-?-?- A -?-?-?-?-?-?-?-?-?-?-?-?- B A -?-?-?-?-?-?-?-?-?-?-?-?- B -?-?-?-?-?-?-?-?-?-?-?-?- A -?-?-?-?-?-?-?-?-?-?-?--?- B A JV- di/di twin g estation measuring 11 weeks 0 days (both) and consistent with LMP. early glucola ordered. declines nipt. heart rates 180 and 160 -?-?-?-?-?-?-?-?-?-?-?-?- B 10/22/22 -?-?-?-?-?-?-?-?-?-?-?-?- 14w 4d 202 lb 8 oz 111/71 Nega tive -?-?-?-?-?-?-?-?-?-?-?-?- Negative A 160 -?-?-?-?-?-?-?-?-?-?-?-?- B 147 A -?-?-?-?-?-?-?-?-?-?-?-?- B -?-?-?-?-?-?-?-?-?-?-?-?- A -?-?-?-?-?-?-?-?-?-?-?-?- B A JV - no complain ts today. both fetus' growth consistent with established GA. anatomy scan ordered. still look Di/Di -?-?-?-?-?-?-?-?-?-?-?-?- B 11/19/22 -?-?-?-?-?-?-?-?-?-?-?-?- 18w 4d 205 lb 2 oz 90/69 -?-?-?-?-?-?-?-?-?-?-?-?- A 157 -?-?-?-?-?-?-?-?-?-?-?-?- B 155 A -?-?-?-?-?-?-?-?-?-?-?-?- B -?-?-?-?-?-?-?-?-?-?-?-?- A -?-?-?-?-?-?-?-?-?-?-?-?- B A SM- no v[facility] -?-?-?-?-?-?-?-?-?-?-?-?- B 12/17/22 -?-?-?-?-?-?-?-?-?-?-?-?- 22w 4d 210 lb 8 oz 120/86 110/76 Negative -?-?-?-?-?-?-?-?-?-?-?-?- Negative A 148 -?-?-?-?-?-?-?-?-?-?-?-?- B 145 A -?-?-?-?-?-?-?-?-?-?-?-?- B -?-?-?-?-?-?-?-?-?-?-?-?- A -?-?-?-?-?-?-?-?-?-?-?-?- B A KW- +FM, no cram ping/vb/. follow up anatomy on thurs. -?-?-?-?-?-?-?-?-?-?-?-?- B plans repeat C/S 01/17/23 -?-?-?-?-?-?-?-?-?-?-?--?- 27w 0d 219 lb 2 oz 122/81 Nega tive -?-?-?-?-?-?-?-?-?-?-?-?- Negative A 135 -?-?-?-?-?-?-?-?-?-?-?-?- B 153 A -?-?-?-?-?-?-?-?-?-?-?-?- B -?-?-?-?-?-?-?-?-?-?-?-?- A -?-?-?-?-?-?-?-?-?-?-?-?- B A JV- gct and cbc ordered. no complaints other than fatigue. -?-?-?-?-?-?-?-?-?-?-?-?- B 01/31/23 -?-?-?-?-?-?-?-?-?-?-?-?- 29w 0d 219 lb 8 oz 113/79 Nega tive -?-?-?-?-?-?-?-?-?-?-?-?- Negative A 145 -?-?-?-?-?-?-?-?-?-?-?-?- B 155 A -?-?-?-?-?-?-?-?-?-?-?-?- B -?-?-?-?-?-?-?-?-?-?-?-?- A -?-?-?-?-?-?-?-?-?-?-?-?- B A SM- no vb lof go od fm no regular ctx scheduled RLTCS -?-?-?-?-?-?-?-?-?-?-?-?- B 02/10/23 -?-?-?-?-?-?-?-?-?-?-?-?- 30w 3d 219 lb 4 oz 117/83 Nega tive -?-?-?-?-?-?-?-?-?-?-?-?- Negative A 150 -?-?-?-?-?-?-?-?-?-?-?-?- B 155 A -?-?-?-?-?-?-?-?-?-?-?-?- B -?-?-?-?-?-?-?-?-?-?-?-?- A -?-?-?-?-?-?-?-?-?-?-?-?- B A SM- no vb lof go od fm nor egular ctx -?-?-?-?-?-?-?-?-?-?-?-?- B 02/28/23 -?-?-?-?-?-?-?-?-?-?-?-?- 33w 0d 226 lb 4 oz 118/80 Nega tive -?-?-?-?-?-?-?-?-?-?-?-?- Negative A 132 -?-?-?-?-?-?-?-?-?-?-?-?- B 161 A Cephalic -?-?-?-?-?-?-?-?-?-?-?-?- B Cephalic -?-?-?-?-?-?-?-?-?-?-?-?- A -?-?-?-?-?-?-?-?-?-?-?-?- B A JV- most recent growth was normal (discordance 8.5%) NO complaints today other than feeling hot and tired. has another us on 03/20. -?-?-?-?-?-?-?-?-?-?-?-?- B 03/14/23 -?-?-?-?-?-?-?-?-?-?-?-?- 35w 0d 227 lb 4 oz 112/75 Trac e -?-?-?-?-?-?-?-?-?-?-?-?- Negative A 155 -?-?-?-?-?-?-?-?-?-?-?-?- B 150 A Cephalic -?-?-?-?-?-?-?-?-?-?-?-?- B Breech -?-?-?-?-?-?-?-?-?-?-?-?- A -?-?-?-?-?-?-?-?-?-?-?-?- B A SM- no vb lof go od fm no regular ctx. bs well controlled mostly -?-?-?-?-?-?-?-?-?-?-?-?- B 03/25/23 -?-?-?-?-?-?-?-?-?-?-?-?- 36w 4d 228 lb 149/94 Negative -?-?-?-?-?-?-?-?-?-?-?-?- Negative A 145 -?-?-?-?-?-?-?-?-?-?-?-?- B 135 A Cephalic -?-?-?-?-?-?-?-?-?-?-?-?- B Cephalic -?-?-?-?-?-?-?-?-?-?-?-?- A -?-?-?-?-?-?--?-?-?-?-?-?- B A SM- no vb lof go od fm no regular ctx -?-?-?-?-?-?-?-?-?-?-?-?- B 03/28/23 -?-?-?-?-?-?-?-?-?-?-?-?- 37w 0d 222 lb 139/89 -?-?-?-?-?-?-?-?-?-?-?-?- A -?-?-?-?-?-?-?-?-?-?-?-?- B A -?-?-?-?-?-?-?-?-?-?-?-?- B -?-?-?-?-?-?-?-?-?-?-?-?- A -?-?-?-?-?-?-?-?-?-?-?-?- B A -?-?-?-?-?-?-?-?-?-?-?-?- B ROS Constitutional Constitutional: Reports systems reviewed and no addt'l complaints, except as documented Eyes Eyes: Denies change in vision ENT HEENT: Reports systems reviewed and no addt'l complaints, except as documented; Denies headache(s) Cardiovascular Cardiovascular: Reports systems reviewed and no addt'l complaints, except as documented; Denies chest pain or dyspnea Respiratory/Chest Respiratory/Chest: Reports systems reviewed and no addt'l complaints, except as documented Gastrointestinal Gastrointestinal: Reports systems reviewed and no addt'l complaints, except as documented; Denies abdominal pain Genitourinary Genitourinary: Reports systems reviewed and no addt'l complaints, except as documented, contractions Details: present (irregular) and movement Details: present; Denies dysuria or genital lesions Musculoskeletal Musculoskeletal: Reports systems reviewed and no addt'l complaints, except as documented Neurologic Neurologic: Reports systems reviewed and no addt'l complaints, except as documented Endocrine Endocrinology: Reports systems reviewed and no addt'l complaints, except as documented Vital Signs Vital Signs Vital Signs: 03/28/23 11:00 Temperature 97.8 F Temperature Source Temporal Pulse Rate 83 Respiratory Rate 16 Blood Pressure 139/89 H Blood Pressure Mean 105 Blood Pressure Source Monitor Blood Pressure Position Semi-Fowlers Blood Pressure Location Right Arm Pulse Ox 98 Oxygen Delivery Method Room Air Weight Weight: 222 lb Body Mass Index (BMI) 38.0 Physical Exam Const alert, oriented x3, no apparent distress and healthy appearing HEENT normocephalic and moist oral mucous membranes Head and Scalp: atraumatic Neck full ROM, no lymphadenopathy, supple and thyroid normal General: trachea midline Lymph Lymphatic: no lymphadenopathy noted Chest inspection of chest normal Resp normal respiratory effort Cardio regular rate GI normal to inspection, nondistended, normoactive bowel sounds, soft to palpation and non-tender Inspection: gravid external exam normal Manual OB Exam: estimated gestational size appropriate, presentation cephalic, dilated, effaced and station Extremity normal to inspection General Extremity: Negative for edema Skin no rashes or lesions noted Psych mental status grossly normal Labs Labs Labs: Blood Type A POSITIVE Antibody Screen NEGATIVE Hct 36.9 % (37-47) L Hgb 12.1 g/dL (12.0-15.0) Obstetrics US Syphilis Total Ab Non-reactive Rubella IgG Antibody Reactive (Nonreactive) Hep Bs Antigen Non-Reactive (Nonreactive) Chlamydia DNA (ANDREW) Negative (Negative) Neisseria gonorrhoeae DNA (ANDREW) Negative (Negative) HIV 1&2 Antibody Non-Reactive (Nonreactive) Glucose 1 Hr 50 gm 221 mg/dL (70-140) H Rhogam given: No Assessment & Plan (1) IUGR (intrauterine growth restriction): COMMENT: B measuring 6%ile EFW 2044g, twice weekly testing and deliver 37 weeks. (2) Gestational diabetes mellitus (GDM): COMMENT: BS fasting & 2hr post meals, quality control tech raw materials referral (3) Dichorionic diamniotic twin in first trimester: COMMENT: weekly bpps weekly after 34 weeks, growth q4 weeks At 32 weeks A-43%, B-31% appropriate concordant growth at 8.5% (4) Obesity affecting : (5) Seasonal allergies: (6) Hx of section: COMMENT: breech, RLTCS scheduled for 04/04 @ 7:10 with (7) Supervision of high-risk : COMMENT: PRR , BANG 04/18/23, alberto Kimgina, Anthony (8) : QUALIFIERS: Weeks of gestation: 36 weeks Qualified Code(s): Z3A.36 - 36 weeks gestation of COMMENT: discussed genetic & carrier testing, anatomy nl (additional views needed) (9) Eosinophilic esophagitis: (10) Asthma affecting , antepartum: COMMENT: Rajani Bruce, Rosana Rogers, zyzol PLAN: Plan plan RL 03/28/23 1700 <Electronically signed by Faina Stokes MD> Cosigner Signature (if applicable): CC: Dr. Dave Bellamy MD; Dr. Faina Stokes MD~ Signed [facility] Work Phone: [phone] Procedure [facility] Evaluation note* Diagnosis Onset Date Resolution Status Asthma affecting , antepartum acute Dichorionic diamniotic twin in first trimest er acute Eosinophilic esophagitis acu te Hx of section acute Obesity affecting acute acute Seasonal allergies acute Supervision of high-risk acute [facility] Work Phone: Evaluation note* Diagnosis Onset Date Resolution Status Asthma affecting , antepartum acute Dichorionic diamniotic twin in first trimest er acute Eosinophilic esophagitis acu te Hx of section acute Obesity affecting acute acute Seasonal allergies acute Supervision of high-risk acute Abnormal glucose in , antepartum acute Asthma affecting , antepartum acute Dichorionic diamniotic twin in first trimest er acute Eosinophilic esophagitis acu te Hx of section acute Obesity affecting acute acute Seasonal allergies acute Supervision of high-risk acute Abnormal glucose in , antepartum acute Asthma affecting , antepartum acute Dichorionic diamniotic twin in first trimest er acute Eosinophilic esophagitis acu te Hx of section acute Obesity affecting acute acute Seasonal allergies acute Supervision of high-risk acute Abnormal glucose in , antepartum acute Asthma affecting , antepartum acute Dichorionic diamniotic twin in first trimest er acute Eosinophilic esophagitis acu te Hx of section acute Low lying placenta, antepartum acute Obesity affecting acute acute Seasonal allergies acute Supervision of high-risk acute Abnormal glucose in , antepartum acute Asthma affecting , antepartum acute Dichorionic diamniotic twin in first trimest er acute Eosinophilic esophagitis acu te Hx of section acute Low lying placenta, antepartum acute Obesity affecting acute acute Seasonal allergies acute Supervision of high-risk acute [facility] Work Phone: Evaluation note* Diagnosis Onset Date Resolution Status Abnormal glucose in , antepartum acute Asthma affecting , antepartum acute Dichorionic diamniotic twin in first trimester acute Eosinophilic esophagitis acu te Hx of section acute Obesity affecting acute acute Seasonal allergies acute Supervision of high-risk acute Abnormal glucose in , antepartum acute Asthma affecting , antepartum acute Dichorionic diamniotic twin in first trimester acute Eosinophilic esophagitis acu te Hx of section acute Obesity affecting acute acute Seasonal allergies acute Supervision of high-risk acute Low lying placenta, antepartum resolved Abnormal glucose in , antepartum acute Asthma affecting , antepartum acute Dichorionic diamniotic twin in first trimester acute Eosinophilic esophagitis acu te Hx of section acute Obesity affecting acute acute Seasonal allergies acute Supervision of high-risk acute Low lying placenta, antepartum resolved Abnormal glucose in , antepartum acute Asthma affecting , antepartum acute Dichorionic diamniotic twin in first trimester acute Eosinophilic esophagitis acu te Gestational diabetes mellitus (GDM) acute Hx of section acute Obesity affecting acute Polyhydramnios acute acute Seasonal allergies acute Supervision of high-risk acute Abnormal glucose in , antepartum acute Asthma affecting , antepartum acute Dichorionic diamniotic twin in first trimester acute Eosinophilic esophagitis acu te Gestational diabetes mellitus (GDM) acute Hx of section acute Obesity affecting acute Polyhydramnios acute acute Seasonal allergies acute Supervision of high-risk acute Abnormal glucose in , antepartum acute Asthma affecting , antepartum acute Dichorionic diamniotic twin in first trimester acute Eosinophilic esophagitis acu te Gestational diabetes mellitus (GDM) acute Hx of section acute Obesity affecting acute Polyhydramnios acute acute Seasonal allergies acute Supervision of high-risk acute [facility] Work Phone: Evaluation note* Diagnosis Onset Date Resolution Status Asthma affecting , antepartum acute Dichorionic diamniotic twin in first trimester acute Eosinophilic esophagitis acu te Hx of section acute Obesity affecting acute acute Seasonal allergies acute Supervision of high-risk acute Abnormal glucose in , antepartum resolved Low lying placenta, antepartum resolved Asthma affecting , antepartum acute Dichorionic diamniotic twin in first trimester acute Eosinophilic esophagitis acu te Hx of section acute Obesity affecting acute acute Seasonal allergies acute Supervision of high-risk acute Abnormal glucose in , antepartum resolved Low lying placenta, antepartum resolved Asthma affecting , antepartum acute Dichorionic diamniotic twin in first trimester acute Eosinophilic esophagitis acu te Gestational diabetes mellitus (GDM) acute Hx of section acute Obesity affecting acute acute Seasonal allergies acute Supervision of high-risk acute Abnormal glucose in , antepartum resolved Polyhydramnios resolved Asthma affecting , antepartum acute Dichorionic diamniotic twin in first trimester acute Eosinophilic esophagitis acu te Gestational diabetes mellitus (GDM) acute Hx of section acute Obesity affecting acute acute Seasonal allergies acute Supervision of high-risk acute Abnormal glucose in , antepartum resolved Polyhydramnios resolved Asthma affecting , antepartum acute Dichorionic diamniotic twin in first trimester acute Eosinophilic esophagitis acu te Gestational diabetes mellitus (GDM) acute Hx of section acute Obesity affecting acute acute Seasonal allergies acute Supervision of high-risk acute Abnormal glucose in , antepartum resolved Polyhydramnios resolved Asthma affecting , antepartum acute Dichorionic diamniotic twin in first trimester acute Eosinophilic esophagitis acu te Gestational diabetes mellitus (GDM) acute Hx of section acute Obesity affecting acute acute Seasonal allergies acute Supervision of high-risk acute Polyhydramnios resolved Asthma affecting , antepartum acute Dichorionic diamniotic twin in first trimester acute Eosinophilic esophagitis acu te Gestational diabetes mellitus (GDM) acute Hx of section acute IUGR (intrauterine growth restriction) acute Obesity affecting acute acute Seasonal allergies acute Supervision of high-risk acute [facility] Work Phone: Evaluation note* Diagnosis Onset Date Resolution Status Abnormal glucose in , antepartum resolved Asthma affecting , antepartum resolved Dichorionic diamniotic twin in first trimester resolved Eosinophilic esophagitis res olved Hx of section resol taj Low lying placenta, antepartum resolved Obesity affecting resolved resolved Seasonal allergies resolved Supervision of high-risk resolved Abnormal glucose in , antepartum resolved Asthma affecting , antepartum resolved Dichorionic diamniotic twin in first trimester resolved Eosinophilic esophagitis res olved Hx of section resol taj Low lying placenta, antepartum resolved Obesity affecting resolved resolved Seasonal allergies resolved Supervision of high-risk resolved Gestational diabetes mellitus (GDM) acute Abnormal glucose in , antepartum resolved Asthma affecting , antepartum resolved Dichorionic diamniotic twin in first trimester resolved Eosinophilic esophagitis res olved Hx of section resol taj Obesity affecting resolved Polyhydramnios resolved resolved Seasonal allergies resolved Supervision of high-risk resolved Gestational diabetes mellitus (GDM) acute Abnormal glucose in , antepartum resolved Asthma affecting , antepartum resolved Dichorionic diamniotic twin in first trimester resolved Eosinophilic esophagitis res olved Hx of section resol taj Obesity affecting resolved Polyhydramnios resolved resolved Seasonal allergies resolved Supervision of high-risk resolved Gestational diabetes mellitus (GDM) acute Abnormal glucose in , antepartum resolved Asthma affecting , antepartum resolved Dichorionic diamniotic twin in first trimester resolved Eosinophilic esophagitis res olved Hx of section resol taj Obesity affecting resolved Polyhydramnios resolved resolved Seasonal allergies resolved Supervision of high-risk resolved Gestational diabetes mellitus (GDM) acute Asthma affecting , antepartum resolved Dichorionic diamniotic twin in first trimester resolved Eosinophilic esophagitis res olved Hx of section resol taj Obesity affecting resolved Polyhydramnios resolved resolved Seasonal allergies resolved Supervision of high-risk resolved Gestational diabetes mellitus (GDM) acute Asthma affecting , antepartum resolved Dichorionic diamniotic twin in first trimester resolved Eosinophilic esophagitis res olved Hx of section resol taj IUGR (intrauterine growth restriction) resolved Obesity affecting resolved resolved Seasonal allergies resolved Supervision of high-risk resolved Gestational diabetes mellitus (GDM) acute Asthma affecting , antepartum resolved Dichorionic diamniotic twin in first trimester resolved Eosinophilic esophagitis res olved Hx of section resol taj IUGR (intrauterine growth restriction) resolved Obesity affecting resolved resolved Seasonal allergies resolved Supervision of high-risk resolved delivery delivered acute Gestational diabetes mellitus (GDM) acute Asthma affecting , antepartum resolved Dichorionic diamniotic twin in first trimester resolved Eosinophilic esophagitis res olved Hx of section resol taj IUGR (intrauterine growth restriction) resolved Obesity affecting resolved resolved Seasonal allergies resolved Supervision of high-risk resolved [facility] Work Phone: Evaluation noteNo assessment information available [facility] Work Phone: Reason for referral (narrative)No reason for referral [facility] Summary Purpose Family History No Family History Records Found Relationship Condition Age at Onset Recorded Date/T vick grandmother Malignant neoplasm of breast Unknown grandfather Malignant neoplasm Unknown mother Diabetes mellitus Unknown father Diabetes mellitus Unknown Advance Directives No Advanced Directives Records Found Advance Directive Response Recorded Date/ Time Living Will No June 07 7:15am Power of Swimming Pool Servicer No June 07, 2021 7:15am Advance Directive Response Recorded Date/ Time Living Will No June 07 8:15am Power of Swimming Pool Servicer No June 07, 2021 8:15am Advance Directive Response Recorded Date/ Time Living Will No December 17, 2022 1 1:38am Power of Swimming Pool Servicer No December 17, 2022 11:38am Advance Directive Response Recorded Date/ Time Living Will No March 28 10:08am Power of Swimming Pool Servicer No March 28 023 10:08am Chief Complaint and Reason for Visit Chief Complaint NOB LMP 12/9 1 HOUR INT LABS DRAW AT 6:30AM Reason for Visit Asthma affecting pre gnancy, antepartum Dichorionic diamniotic twin in first trimester Eosinophilic esophagitis Hx of section Obesity affecting Seasonal allergies Supervision of high-risk Chief Complaint NOB LMP 12/9 1 HOUR INT LABS DRAW AT 6:30AM DIABETES Reason for Visit Asthma affecting pre gnancy, antepartum Dichorionic diamniotic twin in first trimester Eosinophilic esophagitis Hx of section Obesity affecting Seasonal allergies Supervision of high-risk Chief Complaint NOB LMP 07/12 1 HOUR INT LABS DRAW AT 6:30AM DIABETES 15 WK OB *TWINS 19 WK OB 22 WK OB *TWINS* 26 WK OB *TWINS* Reason for Visit Asthma affecting pre gnancy, antepartum Dichorionic diamniotic twin in first trimester Eosinophilic esophagitis Hx of section Obesity affecting Seasonal allergies Supervision of high-risk Abnormal glucose in , antepartum Asthma affecting , antepartum Dichorionic diamniotic twin in first trimester Eosinophilic esophagitis Hx of section Obesity affecting Seasonal allergies Supervision of high-risk Abnormal glucose in , antepartum Asthma affecting , antepartum Dichorionic diamniotic twin in first trimester Eosinophilic esophagitis Hx of section Obesity affecting Seasonal allergies Supervision of high-risk Abnormal glucose in , antepartum Asthma affecting , antepartum Dichorionic diamniotic twin in first trimester Eosinophilic esophagitis Hx of section Low lying placenta, antepartum Obesity affecting Seasonal allergies Supervision of high-risk Abnormal glucose in , antepartum Asthma affecting , antepartum Dichorionic diamniotic twin in first trimester Eosinophilic esophagitis Hx of section Low lying placenta, antepartum Obesity affecting Seasonal allergies Supervision of high-risk Chief Complaint 19 WK OB 22 WK OB *TWINS* 26 WK OB *TWINS* 28 WK OB *TWINS* 30 WK OB *TWINS* GESTATIONAL DIABETES 32 WK OB *twins Reason for Visit Abnormal glucose in , antepartum Asthma affecting , antepartum Dichorionic diamniotic twin in first trimester Eosinophilic esophagitis Hx of section Obesity affecting Seasonal allergies Supervision of high-risk Abnormal glucose in , antepartum Asthma affecting , antepartum Dichorionic diamniotic twin in first trimester Eosinophilic esophagitis Hx of section Obesity affecting Seasonal allergies Supervision of high-risk Low lying placenta, antepartum Abnormal glucose in , antepartum Asthma affecting , antepartum Dichorionic diamniotic twin in first trimester Eosinophilic esophagitis Hx of section Obesity affecting Seasonal allergies Supervision of high-risk Low lying placenta, antepartum Abnormal glucose in , antepartum Asthma affecting , antepartum Dichorionic diamniotic twin in first trimester Eosinophilic esophagitis Gestational diabetes mellitus (GDM) Hx of section Obesity affecting Polyhydramnios Seasonal allergies Supervision of high-risk Abnormal glucose in , antepartum Asthma affecting , antepartum Dichorionic diamniotic twin in first trimester Eosinophilic esophagitis Gestational diabetes mellitus (GDM) Hx of section Obesity affecting Polyhydramnios Seasonal allergies Supervision of high-risk Abnormal glucose in , antepartum Asthma affecting , antepartum Dichorionic diamniotic twin in first trimester Eosinophilic esophagitis Gestational diabetes mellitus (GDM) Hx of section Obesity affecting Polyhydramnios Seasonal allergies Supervision of high-risk Chief Complaint 22 WK OB *TWINS* 26 WK OB *TWINS* 28 WK OB *TWINS* 30 WK OB *TWINS* GESTATIONAL DIABETES 32 WK OB *twins 34 WK OB *TWINS 36 WK OB *TWINS NST Reason for Visit Asthma affecting pre gnancy, antepartum Dichorionic diamniotic twin in first trimester Eosinophilic esophagitis Hx of section Obesity affecting Seasonal allergies Supervision of high-risk Abnormal glucose in , antepartum Low lying placenta, antepartum Asthma affecting , antepartum Dichorionic diamniotic twin in first trimester Eosinophilic esophagitis Hx of section Obesity affecting Seasonal allergies Supervision of high-risk Abnormal glucose in , antepartum Low lying placenta, antepartum Asthma affecting , antepartum Dichorionic diamniotic twin in first trimester Eosinophilic esophagitis Gestational diabetes mellitus (GDM) Hx of section Obesity affecting Seasonal allergies Supervision of high-risk Abnormal glucose in , antepartum Polyhydramnios Asthma affecting , antepartum Dichorionic diamniotic twin in first trimester Eosinophilic esophagitis Gestational diabetes mellitus (GDM) Hx of section Obesity affecting Seasonal allergies Supervision of high-risk Abnormal glucose in , antepartum Polyhydramnios Asthma affecting , antepartum Dichorionic diamniotic twin in first trimester Eosinophilic esophagitis Gestational diabetes mellitus (GDM) Hx of section Obesity affecting Seasonal allergies Supervision of high-risk Abnormal glucose in , antepartum Polyhydramnios Asthma affecting , antepartum Dichorionic diamniotic twin in first trimester Eosinophilic esophagitis Gestational diabetes mellitus (GDM) Hx of section Obesity affecting Seasonal allergies Supervision of high-risk Polyhydramnios Asthma affecting , antepartum Dichorionic diamniotic twin in first trimester Eosinophilic esophagitis Gestational diabetes mellitus (GDM) Hx of section IUGR (intrauterine growth restriction) Obesity affecting Seasonal allergies Supervision of high-risk Chief Complaint 22 WK OB *TWINS* 26 WK OB *TWINS* 28 WK OB *TWINS* 30 WK OB *TWINS* GESTATIONAL DIABETES 32 WK OB *twins 34 WK OB *TWINS 36 WK OB *TWINS NST NST REPEAT C SECTION REPEAT C SECTION REPEAT C SECTION REPEAT C SECTION REPEAT C SECTION Reason for Visit Abnormal glucose in , antepartum Asthma affecting , antepartum Dichorionic diamniotic twin in first trimester Eosinophilic esophagitis Hx of section Low lying placenta, antepartum Obesity affecting Seasonal allergies Supervision of high-risk Abnormal glucose in , antepartum Asthma affecting , antepartum Dichorionic diamniotic twin in first trimester Eosinophilic esophagitis Hx of section Low lying placenta, antepartum Obesity affecting Seasonal allergies Supervision of high-risk Gestational diabetes mellitus (GDM) Abnormal glucose in , antepartum Asthma affecting , antepartum Dichorionic diamniotic twin in first trimester Eosinophilic esophagitis Hx of section Obesity affecting Polyhydramnios Seasonal allergies Supervision of high-risk Gestational diabetes mellitus (GDM) Abnormal glucose in , antepartum Asthma affecting , antepartum Dichorionic diamniotic twin in first trimester Eosinophilic esophagitis Hx of section Obesity affecting Polyhydramnios Seasonal allergies Supervision of high-risk Gestational diabetes mellitus (GDM) Abnormal glucose in , antepartum Asthma affecting , antepartum Dichorionic diamniotic twin in first trimester Eosinophilic esophagitis Hx of section Obesity affecting Polyhydramnios Seasonal allergies Supervision of high-risk Gestational diabetes mellitus (GDM) Asthma affecting , antepartum Dichorionic diamniotic twin in first trimester Eosinophilic esophagitis Hx of section Obesity affecting Polyhydramnios Seasonal allergies Supervision of high-risk Gestational diabetes mellitus (GDM) Asthma affecting , antepartum Dichorionic diamniotic twin in first trimester Eosinophilic esophagitis Hx of section IUGR (intrauterine growth restriction) Obesity affecting Seasonal allergies Supervision of high-risk Gestational diabetes mellitus (GDM) Asthma affecting , antepartum Dichorionic diamniotic twin in first trimester Eosinophilic esophagitis Hx of section IUGR (intrauterine growth restriction) Obesity affecting Seasonal allergies Supervision of high-risk delivery delivered Gestational diabetes mellitus (GDM) Asthma affecting , antepartum Dichorionic diamniotic twin in first trimester Eosinophilic esophagitis Hx of section IUGR (intrauterine growth restriction) Obesity affecting Seasonal allergies Supervision of high-risk Chief Complaint Admit Date E-ORDER August 20, 2024 1 1:42am Chief Complaint Admit Date E-ORDER August 20, 2024 1 1:42am INT LAB ORDERS December 08, 2024 3:48pm Additional Source Comments INFORMATION SOURCE (unrecogn ized section and content) DATE CREATED AUTHOR 04/04/2021 [facility] ([place]) DATE CREATED AUTHOR AUTHOR'S ORGANIZ ATION 03/25/2023 [facility] DATE CREATED AUTHOR AUTHOR'S ORGANIZ ATION 12/14/2024 [facility] Care Teams (unrecognized sec tion and content) Team Status: Active Member Role Status Dates Dr. Satish Mckenzie MD Family Provider Active Dr. Dave Bellamy MD Primary Care Provider Activ e Team Status: Inactive Member Role Status Dates Dr. Dave Bellamy MD Primary Care Provider, Refe rring Provider Active Dr. Araseli Rock DO Attending Provider Activ e Team Status: Inactive Member Role Status Dates Dr. Dave Bellamy MD Primary Care Provider Activ e Dr. Araseli Rock DO Attending Provider, Refe rring Provider Active Team Status: Active Member Role Status Dates Dr. Dave Bellamy MD Primary Care Provider Activ e Dr. Araseli Rock DO Attending Provider, Refe rring Provider Active Team Status: Active Member Role Status Dates Dr. Dave Bellamy MD Primary Care Provider Activ e Jennifer James CNM Attending Provider, Referring Pro vider Active Team Status: Inactive Member Role Status Dates Dr. Dave Bellamy MD Primary Care Provider Activ e Jennifer James CNM Attending Provider, Referring Pro vider Active Team Status: Inactive Member Role Status Dates Dr. Dave Bellamy MD Primary Care Provider, Refe rring Provider Active Dr. Faina Stokes MD Attending Provider Active Team Status: Inactive Member Role Status Dates Dr. Dave Bellamy MD Primary Care Provider, Refe rring Provider Active Jennifer James CNM Attending Provider Active Team Status: Inactive Member Role Status Dates Dr. Dave Bellamy MD Referring Provider Active Dr. Araseli Rock DO Attending Provider Activ e Team Status: Inactive Member Role Status Dates Dr. Dave Bellamy MD Primary Care Provider Activ e Suzie Wilks [employer] STAFF MEMBER, [employer] STAFF MEMBER-C Attending Provider, Referring Provider Active Team Status: Active Member Role Status Dates Dr. Dave Bellamy MD Primary Care Provider Activ e Jennifer James CNM Attending Provider, Referring Provider, Other Provider Active Dr. Faina Stokes MD Other Provider Active Team Status: Active Member Role Status Dates Dr. Dave Bellamy MD Primary Care Provider Activ e Dr. Faina Stokes MD Admit Provid er, Attending Provider, Referring Provider, Other Provider Active Team Status: Active Member Role Status Dates Dr. Dave Bellamy MD Primary Care Provider Activ e Dr. Faina Stokes MD Admit Provid er, Referring Provider, Other Provider Active Jennifer James CNM Attending Provider Active Team Status: Inactive Member Role Status Dates Dr. Dave Bellamy MD Primary Care Provider Activ e Jennifer James CNM Attending Provider, Referring Pro vider Active Dr. Faina Stokes MD Other Provider Active Team Status: Inactive Member Role Status Dates Dr. Dave Bellamy MD Primary Care Provider Activ e Dr. Faina Stokes MD Admit Provid er, Attending Provider, Referring Provider Active Team Status: Active Member Role Status Dates Dr. Satish Mckenzie MD Family Provider Active Dr. Florecita Bellamy MD Primary Care Provider Acti ve Team Status: Inactive Member Role Status Dates Dr. Florecita Bellamy MD Primary Care Provider Acti ve Start: August 20, 2024 End: August 20, 2024 Dr. Florecita Bellamy MD Attending Provider Active Start: August 20, 2024 End: August 20, 2024 Dr. Florecita Bellamy MD Referring Provider Active Start: August 20, 2024 End: August 20, 2024 Team Status: Inactive Member Role Status Dates Dr. Florecita Bellamy MD Primary Care Provider Acti ve Start: October 18, 2024 End: October 18, 2024 Dr. Florecita Bellamy MD Attending Provider Active Start: October 18, 2024 End: October 18, 2024 Dr. Florecita Bellamy MD Referring Provider Active Start: October 18, 2024 End: October 18, 2024 Team Status: Inactive Member Role Status Dates Dr. Florecita Bellamy MD Primary Care Provider Acti cirilo Start: December 08, 2024 End: December 08, 2024 Candida Mclean MD Attending Provider Active Start : December 08, 2024 End: December 08, 2024 Candida Mclean MD Referring Provider Active Start : December 08, 2024 End: December 08, 2024 Goals (unrecognized section and content) Goals may be documented in a n alternate sectionGoals may be documented in an alternate sectionGoals may be documented in an alternate sectionGoals may be documented in an alternate sectionGoals may be documented in an alternate sectionGoals may be documented in an alternate sectionGoals may be documented in an alternate sectionGoals may be documented in an alternate section FOR RECORDS PERTAINING TO PATIENTS WHO ARE OR HAVE BEEN ENROLLED IN A CHEMICAL DEPENDENCY/SUBSTANCEABUSE PROGRAM, SOME INFORMATION MAY BE OMITTED. This clinical summary was aggregated from multiple sources. Caution should be exercised in using it in the provision of clinical care. This summary normalizes information from multiple sources, and as a consequence, information in this document may materially change the coding, format and clinical context of patient data. In addition, data may be omitted in some cases. CLINICAL DECISIONS SHOULD BE BASED ON THE PRIMARY CLINICAL RECORDS. [employer] provides no warranty or guarantee of the accuracy or completeness of information in this document.
== END | disposition home or self-care (01) ==
LOC: LAB 07:39
PROVIDERS: PCP Family Medicine; Referring Provider Family Medicine; Visit Provider Family Medicine
DX: E06.3 Autoimmune thyroiditis (principal)
CPT/HCPCS: 36415; 84439; 84443